=== PATIENT | female | born 1990 | race Caucasian/White ===

== ENCOUNTER 2024-10-24 18:21 | Inpatient (IN) | payer OTHER, SELFPAY ==
[2024-10-24 18:51] VITALS: BP 119/87; PULSE 140; RESP 18; TEMP 36.8; O2SAT 98
--- NOTE | 2024-10-24 18:54 | XRR_ITS ---
PROCEDURE INFORMATION: Exam: XR Chest Exam date and time: 10/24/2024 8:09 PM Age: 34 years old Clinical indication: Patient HX: AMS; Lethargy; Dehydration; Weakness TECHNIQUE: Imaging protocol: Radiologic exam of the chest. Views: 1 view. COMPARISON: No relevant prior studies available. FINDINGS: Lungs: Asymmetric density of the lung andre likely related to centering artifact. No pulmonary consolidation. Pleural spaces: No pleural effusion or pneumothorax. Heart/Mediastinum: Unremarkable. No cardiomegaly. Bones/joints: No acute osseous abnormalities are seen. XR/XR chest 1V portable [id number] IMPRESSION: No acute cardiopulmonary disease.
--- NOTE | 2024-10-24 19:01 | ECG_ITS ---
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 Measurements Intervals [place] Rate: 137 P: 68 [place]: 114 QRS: 94 QRSD: 83 T: -26 QT: 366 QTc: 554 Interpretive Statements SINUS TACHYCARDIA WITH SHORT [place] INTERVAL BORDERLINE RIGHT AXIS DEVIATION [QRS AXIS > 90] POSSIBLE ANTERIOR MYOCARDIAL INFARCTION , OF INDETERMINATE AGE [30 ms Q WAVE IN V3/V4, OR R < 0.2 mV IN V4] ST DEVIATION AND MODERATE T-WAVE ABNORMALITY, CONSIDER LATERAL ISCHEMIA [-0.1+ mV T-WAVE IN I/aVL/V5/V6] ST DEVIATION AND MARKED T-WAVE ABNORMALITY, CONSIDER INFERIOR ISCHEMIA [-0.5+ mV T-WAVE IN II/aVF] No previous ECG available for comparison Electronically Signed On 10-24-2024 22:37:09 SENIOR PRODUCT DEVELOPMENT SCIENTIST by Bennett Choi M.D. [email or web address]
[2024-10-24 20:21] LABS: Alanine Aminotransferase 175 U/L (0-33); Alkaline Phosphatase 122 U/L (35-105); Anion Gap 22.3 (5-19); Aspartate Amino Transferase 51 U/L (0-32); Blood Urea Nitrogen 9 mg/dL (6-20); Calcium 9.9 mg/dL (8.5-10.5); Carbon Dioxide 17 mmol/L (22-29); Chloride 101 mmol/L (98-107); Creatinine Clr Calc Pharmacy 187.2516; Globulin 3.4 g/dL (1.3-4.6); Glomerular Filtration Rate 182.7 mL/min (90-130); Glucose 163 mg/dL (65-115); Osmolality Calculated 286 mOsm/kg (285-295); Potassium 3.3 mmol/L (3.5-5.1); Sodium 137 mmol/L (136-145); Total Bilirubin 2.7 mg/dL (0.15-1.2); Total Protein 7.4 g/dL (6.6-8.7)
[2024-10-24 21:09] VITALS: BP 125/88; PULSE 120; O2SAT 93
--- NOTE | 2024-10-24 21:10 | USR_ITS ---
PROCEDURE INFORMATION: Exam: US Abdomen, Limited; Right Upper Quadrant Exam date and time: 10/24/2024 9:27 PM Age: 34 years old Clinical indication: Abdominal pain; Localized; Right upper quadrant (ruq); Additional info: Vomiting, abd pain, hyperbilirubinemia TECHNIQUE: Imaging protocol: Real time ultrasound of the abdomen with image documentation. Limited exam focused on the right upper quadrant. COMPARISON: No relevant prior studies available. FINDINGS: Liver: Liver is normal in size with normal overall echotexture with no evidence of cirrhosis or large suspicious mass. There is a discrete echogenic region with somewhat geographic margin in the anterior subcapsular region near the falciform ligament, measuring 2.9 x 1.7 x 2.6 cm which appear to be hypo dense on recent CT and most likely representing normal/benign fatty deposit near the falciform ligament. No perihepatic ascites. Gallbladder: No abnormal gallbladder luminal distension. Nonacute genic echogenic material is seen in the gallbladder lumen suggesting tumefactive sludge. No shadowing calculi are otherwise identified. There is mild nonspecific gallbladder wall thickening however no pericholecystic fluid or definite sonographic [facility] define was reported by the on-site technologist. Lack of significant luminal distension makes acute cholecystitis highly unlikely however. Gallbladder wall thickening is nonspecific and could be related to chronic cholecystitis, other hepatobiliary disease or systemic disease. Biliary ducts: No biliary dilatation. Proximal CBD measures 3 mm, within normal limits. Pancreas: Partially visualized pancreas appears unremarkable. Right kidney: Right kidney is normal in size and overall echotexture. No hydronephrosis or calculi. However please refer to CT exam report same day demonstrating abnormal renal parenchymal enhancement. Aorta: No aortic aneurysm. Inferior vena cava: Unremarkable upper IVC. Portal venous: Main portal vein is patent with normal flow direction. US/US gall bladder [id number] IMPRESSION: 1. Gallbladder sludge. Mild nonspecific gallbladder wall thickening as described. No other definite imaging signs of acute cholecystitis. No biliary dilatation. 2. No acute right upper quadrant findings otherwise. 3. Echogenic area in the liver, likely benign fatty deposit near the falciform ligament as described above.
--- NOTE | 2024-10-24 21:10 | CTR_ITS ---
PROCEDURE INFORMATION: Exam: CT Abdomen And Pelvis With Contrast Exam date and time: 10/24/2024 10:17 PM Age: 34 years old Clinical indication: Nausea and vomiting; Abdominal pain; Generalized; Prior surgery; Surgery date: 6+ months; Surgery type: Csection; Patient HX: Diffuse abd pain with n/v. ; Additional info: Vomiting, abdominal pain TECHNIQUE: Imaging protocol: Computed tomography of the abdomen and pelvis with contrast. Radiation optimization: All CT scans at this facility use at least one of these dose optimization techniques: automated exposure control; mA and/or kV adjustment per patient size (includes targeted exams where dose is matched to clinical indication); or iterative reconstruction. Contrast material: OMNI 350; Contrast volume: 100 ml; Contrast route: INTRAVENOUS (IV); COMPARISON: US gall bladder [id number] 10/24/2024 9:27 PM RADIATION DOSE METRICS: Total DLP (mGy-cm): 513.41 FINDINGS: Liver: Normal. No mass. Gallbladder and biliary ducts: Normal. No calcified stones. No ductal dilation. Pancreas: Normal. No ductal dilation. Spleen: Normal. No splenomegaly. Adrenal glands: Normal. No mass. Kidneys and ureters: Kidneys are normal in size with no suspicious mass, obstructing calculi or hydronephrosis. Small patchy area of decreased renal parenchymal enhancement is seen bilaterally. Findings could represent pyelonephritis however other etiology such as small parenchymal infarcts or small indeterminate renal lesions cannot be excluded. Follow-up imaging after treatment should be obtained, perhaps in 6-8 weeks. Stomach and bowel: Moderate stool burden. No acute bowel findings otherwise. Appendix: No evidence of appendicitis. Intraperitoneal space: Unremarkable. No free air. No significant fluid collection. Vasculature: No abdominal aortic aneurysm. Lymph nodes: No enlarged lymph nodes. Urinary bladder: Markedly distended urinary bladder with no wall thickening or luminal calculi. Urinary tension should be excluded clinically. Reproductive: Unremarkable as visualized. Bones/joints: No acute fracture. Soft tissues: No acute findings. CT/CT abdomen pelvis w con* [id number] IMPRESSION: 1. Small patchy areas of abnormal renal parenchymal enhancement bilaterally, nonspecific but may represent pyelonephritis. Clinical correlation is needed. No drainable collection, obstructing calculi or hydronephrosis. See discussion above. 2. Markedly distended urinary bladder. See above. 3. No acute abdominopelvic findings otherwise. COMMENTS: Consistent with the [employer] [place] [employer]'s Incidental Findings Committee white paper (J Am Terell Radiol 2018): Any incidental renal lesion less than 1 cm or classified as too small to characterize, or any incidental cystic renal lesion characterized as simple-appearing, is likely benign. No follow-up imaging is recommended for these lesions per consensus recommendations based on imaging criteria.
[2024-10-24] MEDS: sodium chloride 0.9% 1,000 ML 999 ML IV ×2 (21:28→22:24)
[2024-10-24 21:31] VITALS: BP 112/78; PULSE 110; O2SAT 97
--- NOTE | 2024-10-24 21:40 | ED_ITS ---
HPI - Nausea/Vomiting/Diarrhea 2 General: Chief complaint: Nausea/Vomiting/Diarrhea Stated complaint: hydrated, cant stand,hold head, weakness Time Seen by Provider: 10/24/24 20:01 History of Present Illness: 34-year-old female who had an EGD in [facility] according to family. She has had continued vomiting and abdominal pain since that time. She was seen at an outside facility, last night, and given IV fluids. X-ray of the abdomen was evidently negative. She presents with lethargy, generalized abdominal pain. No fever. No continued vomiting. Related Data Home Medications Medication Instructions Recorded Confirmed No Known Home Medications 10/25/24 10/25/24 Allergies Allergy/AdvReac Type Severity Reaction Status Date / Time Alpha-Gal Allergy Unknown Verified 10/24/24 18:59 (Ptnipjvrz-Anywc-5,3-Gala [facility] ED 2 PFSH: Medical History (Updated 10/25/24 @ 05:27 by Stu Fuller DO) MTHFR mutation Preeclampsia HELLP syndrome Physical Exam 2 Const: COMMON NORMALS: alert GENERAL APPEARANCE: cooperative, lethargic and ill appearing ORIENTATION/CONSCIOUSNESS: Yes lethargic HENMT: COMMON NORMALS: normocephalic, atraumatic and Normal external nose present HEAD & SCALP: normocephalic and atraumatic FACE & SINUS: normal facial exam and face symmetric NOSE: Normal external nose present Eye: COMMON NORMALS: Equal, round and reactive pupils present and EOMs intact bilaterally PUPIL: Yes Equal, round and reactive pupils present Neck/C-Spine: GENERAL: Yes trachea midline Chest: CHEST: Yes Symmetrical chest wall rise Resp: COMMON NORMALS: normal respiratory effort, No retractions, No use of accessory muscles and clear to auscultation bilaterally AUSCULTATION: clear to auscultation bilaterally Cardio: COMMON NORMALS: regular rate and regular rhythm RATE: regular rate RHYTHM: regular rhythm GI: COMMON NORMALS: Soft to palpation PALPATION: Yes Soft to palpation, No Firmness to palpation present (GI) and Yes Tenderness to palpation present (GI) (Generalized) Extremity: COMMON NORMALS: no pedal edema Neuro: SENSORIUM/ORIENTATION: Yes alert and Yes lethargic Psych: COMMON NORMALS: speech normal SPEECH: Yes normal speech Skin: COMMON NORMALS: no rashes or lesions noted GENERAL SKIN EXAM: no rashes or lesions noted Course 2 Vital Signs: Vital signs: Vital Signs Temperature 98.2 F 10/24/24 18:51 Pulse Rate 72 10/25/24 01:37 Respiratory Rate 18 10/25/24 00:29 Blood Pressure 140/95 10/25/24 01:37 Pulse Oximetry 94 10/25/24 00:29 Oxygen Delivery Me thod Room Air 10/25/24 01:55 MDM - Nausea/Vomiting/Diarrhea Medical Decision Making 34-year-old female with profound dehydration. She is tachycardic on arrival in the 140s. Heart rate is improved after 2 L bolus. She is afebrile. She is lethargic. Patient's liver enzymes are elevated. Right upper quadrant ultrasound shows some sludge in the gallbladder with mild gallbladder wall thickening. CT is negative. She will be admitted. Hospitalist is aware. Lab Data 10/24/24 21:25 10/24/24 19:53 Radiology Impressions Chest X-Ray 10/24/24 18:54 IMPRESSION: No acute cardiopulmonary disease. Abdomen/Pelvis CT 10/24/24 21:10 IMPRESSION: 1. Small patchy areas of abnormal renal parenchymal enhancement bilaterally, nonspecific but may represent pyelonephritis. Clinical correlation is needed. No drainable collection, obstructing calculi or hydronephrosis. See discussion above. 2. Markedly distended urinary bladder. See above. 3. No acute abdominopelvic findings otherwise. COMMENTS: Consistent with the [place] [employer]'s Incidental Findings Committee white paper (J Am Terell Radiol 2018): Any incidental renal lesion less than 1 cm or classified as too small to characterize, or any incidental cystic renal lesion characterized as simple-appearing, is likely benign. No follow-up imaging is recommended for these lesions per consensus recommendations based on imaging criteria. Gallbladder Ultrasound 10/24/24 21:10 IMPRESSION: 1. Gallbladder sludge. Mild nonspecific gallbladder wall thickening as described. No other definite imaging signs of acute cholecystitis. No biliary dilatation. 2. No acute right upper quadrant findings otherwise. 3. Echogenic area in the liver, likely benign fatty deposit near the falciform ligament as described above. Head CT 10/24/24 23:31 IMPRESSION: No acute intracranial findings. Laboratory Results WBC 6.92 10^3/uL (3.29-11.43) 10/24/24 21:25 Corrected WBC Cancelled 10/24/24 19:53 RBC 4.28 10^6/uL (3.85-5.65) 10/24/24 21: Hgb 13.30 g/dL (11.27-16.99) 10/24/24 21: Hct 37.5 % (36-47) 10/24/24 21: MCV 87.6 fl (85-98) 10/24/24 21: MCH 31.1 pg (27-33) 10/24/24: MCHC 35.5 g/dL (30-55) 10/24/24: RDW 12.3 % (12.1-15.1) 10/24/24: Plt Count 179 10^3/cmm (157-399) 10/24/24: MPV 10.2 fL (7.4-10.4) 10/24/24 21: Gran % Cancelled 10/24/24 19:53 Neut % (Auto) 76.8 % 10/24/24: Lymph % (Auto) 12.3 % 10/24/24: Karnes % (Auto) 8.5 % 10/24/24: Eos % (Auto) 1.2 % 10/24/24: Baso % (Auto) 0.3 % 10/24/24: Neut # (Auto) 5.32 10^3/uL (1.8-7.7) 10/24/24: Lymph # (Auto) 0.9 10^3/uL (0.8-4.8) 10/24/24: Karnes # (Auto) 0.6 10^3/uL (0.2-0.9) 10/24/24 21: Eos # (Auto) 0.1 10^3/uL (0.0-0.8) 10/24/24: Baso # (Auto) 0.0 10^3/uL (0.0-0.1) 10/24/24: Absolute Gran (auto) Cancelled 10/24/24 19:53 Nucleated RBC % (auto) 0 % 10/24/24: Nucleated RBCs # 0.0 /100WBC 10/24/24 21: Sodium 137 mmol/L (136-145) 10/24/24 19:53 Potassium 3.3 mmol/L (3.5-5.1) L 10/24/24 19:53 Chloride 101 mmol/L (98-107) 10/24/24 19:53 Carbon Dioxide 17 mmol/L (22-29) L 10/24/24 19:53 Anion Gap 22.3 (5-19) H 10/24/24 19:53 BUN 9 mg/dL (6-20) 10/24/24 19:53 Creatinine 0.4 mg/dL (0.5-0.9) L 10/24/24 19:53 GFR Calculation 182.7 mL/min (90-130) H 10/24/24 19:53 Glucose 163 mg/dL (65-115) H 10/24/24 19:53 Calculated Osmolality 286 mOsm/kg (285-295) 10/24/24 19:53 Lactic Acid 2.0 mmol/L (0.5-2.2) 10/24/24 19:53 Calcium 9.9 mg/dL (8.5-10.5) 10/24/24 19:53 Total Bilirubin 2.7 mg/dL (0.15-1.2) H 10/24/24 19:53 AST 51 U/L (0-32) H 10/24/24 19:53 ALT 175 U/L (0-33) H 10/24/24 19:53 Alkaline Phosphatase 122 U/L (35-105) H 10/24/24 19:53 Total Protein 7.4 g/dL (6.6-8.7) 10/24/24 19:53 Albumin 4.0 g/dL (3.5-5.2) 10/24/24 19:53 Globulin 3.4 g/dL (1.3-4.6) 10/24/24 19:53 Vitamin B12 647 pg/mL (232-1245) 10/24/24 19:53 HCG, Qual Negative (Negative) 10/24/24: Urine Color Leeper (Yellow) A 10/24/24 20: Urine Appearance Clear (CLEAR) 10/24/24 20:27 Urine pH 6.5 (5-7) 10/24/24 20:27 Ur Specific [place] 1.039 (1.005-1.030) H 10/24/24 20:27 Urine Protein Trace (Negative) A 10/24/24 20: Urine Glucose (UA) Negative (Normal) 10/24/24 20: Urine Ketones 2+ (Negative) H 10/24/24 20: Urine Blood Negative (Negative) 10/24/24 20: Urine Nitrate Negative (Negative) 10/24/24 20: Urine Bilirubin 2+ (Negative) H 10/24/24 20: Urine Urobilinogen 2.0 mg/dL (Negative) H 10/24/24 20:27 Ur Leukocyte Esterase Trace (Negative) A 10/24/24 20: Urine RBC 0-2 /hpf (0-2) 10/24/24 20: Urine WBC 0-5 /hpf (0-5) 10/24/24 20: Ur Squamous Epith Cells 0-5 /hpf (0-5) 10/24/24 20: Amorphous Sediment Not Reportable 10/24/24 20: Urine Bacteria None seen /hpf (NONE) 10/24/24 20: Hyaline Casts 4.95 /lpf 10/24/24 20: Urine Mucus 4+ /hpf 10/24/24 20:27 Urine Opiates Screen Negative ng/mL (Negative) 10/24/24 20: Ur Barbiturates Screen Negative ng/mL (Negative) 10/24/24 20: Ur Phencyclidine Scrn Negative ng/mL (Negative) 10/24/24 20: Ur Amphetamines Screen Negative ng/mL (Negative) 10/24/24 20: U Benzodiazepines Scrn Negative ng/mL (Negative) 10/24/24 20: Urine Cocaine Screen Negative ng/mL (Negative) 10/24/24 20: U Marijuana (THC) Screen Negative ng/mL (Negative) 10/24/24 20: Coronavirus (PCR) Negative (Negative) 10/24/24 21:24 Hepatitis A IgM Ab Non-reactive (Nonreactive) 10/24/24 19:53 Hep Bs Antigen Non-reactive (Nonreactive) 10/24/24 19:53 Hep B Core IgM Ab Non-reactive (Nonreactive) 10/24/24 19:53 Hepatitis C Antibody Non-reactive (Nonreactive) 10/24/24 19:53 Influenza A (PCR) Negative (Negative) 10/24/24 21:24 Influenza Type B (PCR) Negative (Negative) 10/24/24 21:24 RSV (PCR) Negative (Negative) 10/24/24 21:24 All radiology interpretation(s) finalized by discharge Discharge Plan Discharge Patient Disposition: Admitted As Inpatient Admit Provider: Joshua Craig Clinical Impression: Cyclical vomiting, Refeeding syndrome, Ketosis, Abnormal liver enzymes Condition: Serious Coding Level of Care Code 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
[2024-10-24 21:43] LABS: Basophils % 0.3 %; Eosinophils # 0.1 10^3/uL (0.0-0.8); Eosinophils % 1.2 %; Hematocrit 37.5 % (36-47); Lymphocytes # 0.9 10^3/uL (0.8-4.8); Lymphocytes % 12.3 %; Mean Corpuscular HGB Conc 35.5 g/dL (30-55); Mean Corpuscular Hemoglobin 31.1 pg (27-33); Mean Corpuscular Volume 87.6 fl (85-98); Mean Platelet Volume 10.2 fL (7.4-10.4); Monocytes # 0.6 10^3/uL (0.2-0.9); Monocytes % 8.5 %; Neutrophils # 5.32 10^3/uL (1.8-7.7); Neutrophils % 76.8 %; Nucleated Red Blood Cells % 0 %; Platelet Count 179 10^3/cmm (157-399); Red Blood Count 4.28 10^6/uL (3.85-5.65); Red Cell Distribution Width 12.3 % (12.1-15.1); White Blood Count 6.92 10^3/uL (3.29-11.43)
[2024-10-24 22:12] LABS: Covid PCR NEGATIVE (Negative); Influenza A NEGATIVE (Negative); Influenza B NEGATIVE (Negative); Respiratory Syncytial Virus Ce NEGATIVE (Negative)
[2024-10-24] MEDS: iohexol 350 mg/mL 500 mL Btl (per mL) IV (22:22)
[2024-10-24 22:37] LABS: Hepatitis A Antibody IgM Non-Reactive (Nonreactive); Hepatitis B Core IgM Non-Reactive (Nonreactive); Hepatitis B Surface Antigen Non-Reactive (Nonreactive); Hepatitis C Virus Antibody Non-Reactive (Nonreactive)
[2024-10-24 22:41] VITALS: BP 127/99; PULSE 107; O2SAT 98
[2024-10-24 22:52] LABS: Bilirubin Urine 2+ (Negative); Blood Urine Negative (Negative); Glucose Urine UA Negative (Normal); Ketones Urine 2+ (Negative); Leukocyte Esterase Urine Trace (Negative); Nitrate Urine Negative (Negative); Protein Urine Trace (Negative); Urine Appearance Clear (CLEAR); pH Urine 6.5 (5-7)
[2024-10-24 22:55] LABS: HCG Qualitative Urine. Negative (Negative)
[2024-10-24 22:57] LABS: Bacteria Urine None Seen /hpf; Hyaline Casts Urine 4.95 /lpf; RBC Urine 0-2 /hpf (0-2); Squamous Epithelial Cell Urine 0-5 /hpf (0-5); Universal Test for UA Present (0); WBC Urine 0-5 /hpf (0-5)
[2024-10-24 23:07] LABS: Add Urine Culture? No; Mucus Urine 4+ /hpf; Specific Gravity, Urine 1.039 (1.005-1.030); Urine Color Orange (Yellow)
[2024-10-24 23:10] LABS: Amphetamines Screen Urine Negative (Negative); Barbiturates Screen Urine Negative (Negative); Benzodiazepines Screen Urine Negative (Negative); Cocaine Screen Urine Negative (Negative); Opiate Screen Urine Negative (Negative); PCP Screen Urine Negative (Negative); THC Screen Urine Negative (Negative)
[2024-10-24 23:19] VITALS: BP 127/99; PULSE 101; O2SAT 99
--- NOTE | 2024-10-24 23:25 | P.HP_ITS ---
Providers/Chief Complaint 2 Chief Complaint: hydrated, cant stand,hold head, weakness History of Present Illness Marisela Matute is a 34 year old female who recently got diagnosis of alpha gal in July, started experiencing recurrent nausea vomiting September this year, October 14 she was at [facility] where EGD was done which showed acute esophagitis, biopsy did not show any fungal infection however she does have oral thrush, stomach did not show any significant ulcers or sign of malignancy, she did have high mast cells on esophageal biopsy there was concern for mastocytosis workup was initiated, patient was discharged home, she went back to [facility] again today because of recurrent nausea vomiting inability to keep anything down severe dehydration where she was kept in the ER for IV fluid hydration and then discharged home, presenting today with worsening of her symptoms with nausea vomiting dehydration hallucination lethargy fatigue. Patient is stating that she does not have any siblings with liver disorder, no history of cancer. She does have MTHfr mutation, recurrent abortions, has 1 child who is 6 years old, developed HELP and preeclampsia, not on any anticoagulating agent, she is not diabetic hemoglobin A1c was 5.4 as per [facility] records. In the ER she is tachycardic, had urinary retention Sandra catheter was placed, there was concern for gallbladder sludge with cholecystitis however clinically she does not have any typical signs of features General Surgery has been notified. I will request dietitian to see her in the morning to start PPN because she has extreme signs of dehydration my concern is related to refeeding syndrome she does have oral thrush with cheliosis I requested autoimmune workup She does have high bilirubin with abnormal liver enzymes and high alkaline phosphatase Review of Systems 2 Const: Denies: fever(s) Eyes: Denies: change in vision ENMT: Denies: throat pain Card: Denies: chest pain Resp: Denies: dyspnea GI: Reports: nausea and vomiting : Denies: flank pain Musc: Denies: neck pain Neuro: Reports: behavioral changes Medications/Allergies Allergies Allergy/AdvReac Type Severity Reaction Status Date / Time Alpha-Gal Allergy Unknown Verified 10/24/24 18:59 (Zczvlsbsz-Tapps-3,3-Gala PFSH Acute 2 PFSH: Medical History (Updated 10/25/24 @ 00:18 by Joshua Craig MD) MTHFR mutation Preeclampsia HELLP syndrome Vitals/I&O/Wt Last Vital Signs Temp 98.2 F 10/24/24 18:51 Pulse 101 H 10/24/24 23:19 Resp 18 10/24/24 18:51 BP 127/99 10/24/24 23:19 Pulse Ox 99 10/24/24 23:19 O2 Del Method Room Air 10/24/24 23:19 10/24/24 10/24/24 10/25/24 14:59 22:59 06:59 Intake Total 932.4 / 932.4 Balance 932.4 / 932.4 Weight last 48 hrs Weight 67.585 kg Physical Exam 2 Narrative: Patient is extremely dehydrated Oral thrush Stomatitis cheliosis Abdomen soft No Phillip sign No severe tenderness Afebrile No signs of meningitis Nonfocal neuroexam Awake and alert Dehydrated S1, S2 tachycardia at the bedside I do not appreciate any skin rash Verbally redirectable Data 10/24/24 21:25 10/24/24 19:53 Micro: Microbiology 10/24/24 19:57 Blood Culture - Preliminary Blood SPECIMEN COLLECTED 10/24/24 19:53 Blood Culture - Preliminary Blood SPECIMEN COLLECTED A&P Assessment and plan (1) Refeeding syndrome: (2) Dehydration: (3) Cyclical vomiting: (4) Abnormal liver enzymes: (5) Hypokalemia: (6) Ketosis: (7) Esophagitis: Plan Cyclical vomiting Does not smoke or drink alcohol, no use of marijuana Alpha gal deficiency She is currently being worked up at [facility] for mastocytosis EGD done October 14 which showed acute esophagitis without fungal infection in esophagus mucosa however she does have oral thrush for which I will give her nystatin, [facility] For concern related to gallbladder sludge General Surgery has been consulted I will keep her on Zosyn until then Start IV fluids Request dietitian to start PPN in the morning patient has not eaten in multiple weeks high risk for refeeding syndrome keep her on front desk monitor electrolytes including potassium magnesium and phosphorus Sandra catheter placed for urinary retention Requested autoimmune workup for abnormal liver enzymes Patient is not diabetic hemoglobin A1c 5.4 I will keep her on GI soft diet DVT prophylaxis Lovenox Attestations 2 Medical Necessity Statement*: Anticipating discharge within 40 hours Diagnoses Refeeding syndrome E87.8 Dehydration E86.0 Cyclical vomiting R11.15 Abnormal liver enzymes R74.8 Hypokalemia E87.6 Ketosis E88.89 Esophagitis K20.90
--- NOTE | 2024-10-24 23:31 | CTR_ITS ---
PROCEDURE INFORMATION: Exam: CT Head Without Contrast Exam date and time: 10/25/2024 12:10 AM Age: 34 years old Clinical indication: Altered mental status/memory loss; Patient HX: Severe lethargy. TECHNIQUE: Imaging protocol: Computed tomography of the head without contrast. Radiation optimization: All CT scans at this facility use at least one of these dose optimization techniques: automated exposure control; mA and/or kV adjustment per patient size (includes targeted exams where dose is matched to clinical indication); or iterative reconstruction. COMPARISON: No relevant prior studies available. RADIATION DOSE METRICS: Total DLP (mGy-cm): 2420.28 FINDINGS: Brain: Bandlike low-density changes in the right frontal and right medial temporal region are most likely artifacts. Normal brain otherwise. No hemorrhage. Unremarkable white matter. No mass effect. Cerebral ventricles: No ventriculomegaly. Paranasal sinuses: Opacified left anterior ethmoid sinus. Other sinuses are clear. Mastoid air cells: Visualized mastoid air cells are well aerated. Bones: Unremarkable. No acute fracture. Soft tissues: Unremarkable. CT/CT head wo con* [id number] IMPRESSION: No acute intracranial findings.
[2024-10-25] VITALS (8 sets, daily range): BP systolic 92–140; BP diastolic 61–95; PULSE 66–113; RESP 15–18; TEMP 36.4–36.9; O2SAT 94–100
[2024-10-25] MEDS: piperacillin-tazobactam 3.375 GM in sodium chloride 0.9% (plus) 50 ML IV ×2 (00:08→08:28)
--- NOTE | 2024-10-25 01:24 | PC.NURSE ---
Orders Unable to obtain D5LR with 20KcL at this time d/t no pharmacist on site. Dr. Craig notified by this nurse. Orders received to run NS in place until pharmacy is available. Order placed for NS @ 100mL/hr. Physician also gave order for 40mEq Krider x1 dose IV now. This nurse consulted with telepharmacy as patient has alpha-gal allergy. Pharmacy cautions use of Lidocaine with this patient and advises Krider without it to be safe. Order placed for 40mEq Krider x1 bag without Lidocaine.
[2024-10-25] MEDS: potassium chloride premix 100 ML 25 MEQ IV (01:37)
[2024-10-25] MEDS: enoxaparin 40 mg/0.4 mL Syringe SUBCUT ×2 (01:37→23:43)
[2024-10-25] MEDS: scopolamine 1.5 Patch 1 PATCH TRANSDERMA (01:37)
[2024-10-25] MEDS: sodium chloride 0.9% 1,000 ML 100 ML IV ×3 (01:40→20:28)
[2024-10-25 02:37] LABS: Vitamin B12 647 pg/mL (232-1245)
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
[2024-10-25] MEDS: pantoprazole 40 mg SDV IVP ×2 (08:28→17:50)
[2024-10-25 12:25] LABS: Basophils % 0.3 %; Eosinophils # 0.2 10^3/uL (0.0-0.8); Eosinophils % 2.1 %; Hematocrit 31.4 % (36-47); Lymphocytes # 0.7 10^3/uL (0.8-4.8); Lymphocytes % 10.3 %; Mean Corpuscular Hemoglobin 30.6 pg (27-33); Mean Corpuscular Volume 87.5 fl (85-98); Mean Platelet Volume 10.6 fL (7.4-10.4); Monocytes # 0.4 10^3/uL (0.2-0.9); Monocytes % 5.9 %; Neutrophils # 5.73 10^3/uL (1.8-7.7); Neutrophils % 80.8 %; Nucleated Red Blood Cells % 0 %; Platelet Count 151 10^3/cmm (157-399); Red Blood Count 3.59 10^6/uL (3.85-5.65); Red Cell Distribution Width 12.4 % (12.1-15.1); White Blood Count 7.09 10^3/uL (3.29-11.43)
[2024-10-25 12:47] LABS: Alanine Aminotransferase 106 U/L (0-33); Albumin Level 3.1 g/dL (3.5-5.2); Alkaline Phosphatase 100 U/L (35-105); Anion Gap 16.3 (5-19); Aspartate Amino Transferase 38 U/L (0-32); Blood Urea Nitrogen 6 mg/dL (6-20); C Reactive Protein 129.8 mg/L (0.0-4.9); Calcium 8.3 mg/dL (8.5-10.5); Carbon Dioxide 17 mmol/L (22-29); Chloride 107 mmol/L (98-107); Creatine Phosphokinase 113 U/L (26-192); Globulin 2.2 g/dL (1.3-4.6); Glomerular Filtration Rate 182.7 mL/min (90-130); Glucose 81 mg/dL (65-115); Magnesium 1.8 mg/dL (1.7-2.3); Osmolality Calculated 281 mOsm/kg (285-295); Phosphorus 3.1 mg/dL (2.5-4.5); Potassium 3.3 mmol/L (3.5-5.1); Sodium 137 mmol/L (136-145); Total Bilirubin 2.2 mg/dL (0.15-1.2); Total Protein 5.3 g/dL (6.6-8.7)
[2024-10-25 12:57] LABS: Cortisol Random 11.33 ug/dL (2.47-19.5)
[2024-10-25 14:04] LABS: HIV 1 & 2 Antibody Non-Reactive (Non-Reactiv); HIV 1 & 2 Antigen Non-Reactive (Non-Reactiv)
--- NOTE | 2024-10-25 15:07 | P.PN_ITS ---
Subjective 2 Subjective: Overnight labs and H&P reviewed. Patient states her nausea is better today. She is noted to have severe thrush, ulcerative rash on her lips. States that her symptoms have been going on and worsening since middle of September. Medications: Reviewed: Yes Vitals/I&O/Wt Last Vital Signs Temp 98.4 F 10/25/24 11:38 Pulse 113 H 10/25/24 11:38 Resp 16 10/25/24 11:38 BP 96/64 10/25/24 11:38 Pulse Ox 99 10/25/24 11:38 O2 Del Method Room Air 10/25/24 11:38 10/25/24 10/25/24 10/25/24 06:59 14:59 22:59 Intake Total 1150.000 / 2082.400 965 / 965 Output Total 1750 / 1750 1000 / 1000 Balance -600.000 / 332.400 -35 / -35 Weight last 48 hrs Weight 71.668 kg Weight 71.668 kg Weight 67.585 kg Physical Exam 2 Narrative: General: No acute distress, AO x3 HEENT: PERRLA, severe thrush affecting her tongue. Redness over soft palate. Chest: Normal vesicular breath sounds, no added sounds, equal good air entry bilaterally CVS: S1-S2 regular, no murmurs, no tachycardia, no gallops, no rubs Abdomen: Soft, nontender, no organomegaly, bowel sounds present Neuro: No focal motor deficits on exam Urinary Catheter Management: Sandra: Cath Placed During This Visit: yes, but has since been removed by the nurse Reason for Continuing Indwelling Catheter: Decision to DC Catheter Urinary Catheter Date of Insertion: 10/24/24 Urinary Catheter Time of Insertion: 23:48 Date Urinary Catheter Removed: 10/25/24 Time Urinary Catheter Discontinued: 13:03 Data 10/25/24 12:07 10/25/24 12:07 Micro: Microbiology 10/24/24 19:57 Blood Culture - Preliminary Blood SPECIMEN COLLECTED 10/24/24 19:53 Blood Culture - Preliminary Blood SPECIMEN COLLECTED A&P Assessment and plan (1) Dehydration: (2) Cyclical vomiting: (3) Abnormal liver enzymes: (4) Hypokalemia: (5) Ketosis: (6) Esophagitis: (7) Thrush, oral: (8) Stomatitis: Plan Cyclical vomiting Does not smoke or drink alcohol, no use of marijuana Alpha gal deficiency She is currently being worked up at [facility] for mastocytosis EGD done October 14 which showed acute esophagitis without fungal infection in esophagus mucosa however she does have oral thrush for which I will give her nystatin, has the [facility] online portal report For concern related to gallbladder sludge General Surgery has been consulted I will keep her on Zosyn until then Start IV fluids Request dietitian to start PPN in the morning patient has not eaten in multiple weeks high risk for refeeding syndrome keep her on threat monitoring analyst electrolytes including potassium magnesium and phosphorus Sandra catheter placed for urinary retention Requested autoimmune workup for abnormal liver enzymes Patient is not diabetic hemoglobin A1c 5.4 I will keep her on GI soft diet DVT prophylaxis Lovenox Plan for today: 10/25/2024. Patient noted to have severe thrush. 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 Reviewed her biopsy results from which she has been healed. Esophagitis and gastritis was noted with mast cell deposition. Per review of the report it appears that they have planned to start patient on antihistamines, but she has not yet received any prescription for the same. She has only been recommended to take Protonix thus far. Fungal stains were negative. Unable to see any results of viral cytopathic changes. Unable to find results of H. pylori testing. Check HIV 1 2 antigen antibody screen. Concern for underlying immunocompromising condition given severity of her symptoms. Possibly autoimmune disorder. Noted to have deranged LFTs, patient states this has chronically been noted over the past 2 to 3 months, possibly may have autoimmune hepatitis. DAYDAY panel was ordered last evening, results not expected to be back until about 24 hours. Gallbladder sludge on US. non specific wall thickening. Less likely to be cholecystitis as no right upper quadrant tenderness .Chronicity of symptoms. Discontinue piperacillin/tazobactam. For now we will continue IV hydration. She appears to be much better hydrated today. BMI is 27.K is 3.3 Continue nystatin swish and swallow. May physically have an invasive pharyngitis. She reports severe weakness to the point of not being able to move her lower extremities. Not being able to walk to the bathroom. PT/OT assessment ordered. reports beingvery stressed recently due to family dynamics and her childrens' illness. Attestations 2 Medical Necessity Statement*: continue iv hydration. Add fluconazole for severe thrush, HSV PCR to evaluate for viral stomatitis/esophagitis Coding Level of Care Code Acute Code for Chg Fwd Diagnoses Dehydration E86.0 Cyclical vomiting R11.15 Abnormal liver enzymes R74.8 Hypokalemia E87.6 Ketosis E88.89 Esophagitis K20.90 Thrush, oral B37.0 Stomatitis K12.1
[2024-10-25] MEDS: lidocaine 1% 5 ML in potassium chloride premix 100 ML 52.5 ML IV (15:51)
--- NOTE | 2024-10-25 16:08 | PC.OT ---
OT EVALUATION ATTEMPTED. PATIENT SLEEPING SOUNDLY. WILL ATTEMPT AGAIN TOMORROW.
--- NOTE | 2024-10-25 17:09 | P.CONIM_ITS ---
Providers/Reason For Consult 2 Consulting Physician/Specialty*: Dr. Demar Lopez, DO/General Surgery Reason for Consult*: Abdominal pain, cholecystitis Attending Physician: Anna Niño MD History of Present Illness History of Present Illness Marisela Matute is a 34 year old female scented to the hospital with an almost 2- month history of nausea and emesis. She reports that she has been unable to keep anything down, per patient's significant other and the chart. When I examined the patient, she was very somnolent and difficult to wake. She was confused and not oriented to place. HPI and review of systems are limited secondary to this. She reportedly has not had much abdominal pain but has not been able to eat due to frequent nausea and vomiting. She underwent EGD at another facility last month where they found acute esophagitis, with a high number of mast cells seen on biopsy. Upon further questioning, patient has had a headache since the EGD along with blurred and double vision. Imaging of the abdomen showed a thickened gallbladder wall with no other signs of acute cholecystitis Review of Systems 2 General: Reports: ROS unobtainable due to mental status Medications/Allergies Home Medications Medication Instructions Recorded Confirmed Last Taken Type No Known Home Medications 10/25/24 10/25/24 Unknown History Allergies Allergy/AdvReac Type Severity Reaction Status Date / Time Alpha-Gal Allergy Unknown Verified 10/24/24 18:59 (Rzmuvqzac-Fsvbc-0,3-Gala Current Medications Generic Name Dose Route Start Last Admin Trade Name Freq PRN Reason Stop Dose Admin Enoxaparin Sodium 40 mg 10/25/24 00:36 10/25/24 23:43 Enoxaparin 40 Mg/0.4 Ml Syringe SUBCUT 40 mg Q24H MADAI Administration Sodium Chloride 1,000 mls @ 100 mls/hr 10/25/24 01:15 10/26/24 06:29 Sodium Chloride 0.9% IV 100 mls/hr .Q10H MADAI Administration Fluconazole 100 mg/ N/A 50 mls @ 50 mls/hr 10/25/24 16:30 10/25/24 19:09 IV Infused Q24H MADAI Infusion Nystatin 500,000 unit 10/25/24 09:00 10/25/24 20:28 Nystatin 100,000 Unit/Ml Udc 5 Ml PO Not Given QID MADAI Pantoprazole Sodium 40 mg 10/25/24 09:00 10/25/24 17:50 Pantoprazole 40 Mg Sdv IVP 40 mg BID MADAI Administration Thiamine HCl 100 mg 10/25/24 09:00 10/25/24 08:29 Thiamine 100 Mg/Ml Sdv IVP 100 mg DAILY MADAI Administration PFSH Acute 2 PFSH: Medical History MTHFR mutation Preeclampsia HELLP syndrome Vitals/I&O/Wt Last Vital Signs Temp 97.9 F 10/26/24 03:55 Pulse 69 10/26/24 03:55 Resp 14 10/26/24 03:55 BP 103/68 10/26/24 03:55 Pulse Ox 99 10/26/24 03:55 O2 Del Method Room Air 10/26/24 03:55 10/25/24 10/26/24 10/26/24 22:59 06:59 14:59 Intake Total 1140 / 2105 1300 / 3405 Output Total 1000 / 2000 Balance 140 / 105 1300 / 1405 Weight last 48 hrs Weight 162 lb 3.2 oz Weight 158 lb Weight 158 lb Weight 149 lb Physical Exam 2 Narrative: General : Patient is well developed , somnolent, oriented only to person and time but not to place Head : Normal cephalic, a-traumatic. Ears : Pinnae and external canal are normal. Hearing is normal. Eyes : PERRLA, Sclera and injection are normal. No conjunctival discharge. Nose : Mucous membranes are without erythema. Throat : buccal mucosa is normal, gums are without significant recession or hypertrophy. Lungs : Equal chest rise bilaterally, no use of accessory muscles, trachea is midline. Cor : Rate and rhythm are normal. Abdomen : Soft, ND, NT, no g/r/m Extremities : No edema, no cyanosis or clubbing, dorsalis pedis pulses are present bilaterally, non-tender to palpation of calves. Upper extremities are normal bilaterally. Back : non-tender to palpation, no CVA tenderness. Neuro : CN II - XII intact, Upper and lower extremities have equal and full strength Urinary Catheter Management: Sandra: Cath Placed During This Visit: yes, but has since been removed by the nurse Reason for Continuing Indwelling Catheter: Decision to DC Catheter Urinary Catheter Date of Insertion: 10/24/24 Urinary Catheter Time of Insertion: 23:48 Date Urinary Catheter Removed: 10/25/24 Time Urinary Catheter Discontinued: 13:03 Data 10/28/24 06:50 10/28/24 06:50 Micro: Microbiology 10/24/24 19:57 Blood Culture - Preliminary Blood NEGATIVE TO DATE 10/24/24 19:53 Blood Culture - Preliminary Blood NEGATIVE TO DATE A&P Assessment and plan (1) Cyclical vomiting: (2) Headache: (3) Chronic cholecystitis: (4) Double vision: (5) Abnormal liver enzymes: Plan She does not have acute cholecystitis and the risks of undergoing major surgery right now are not outweighed by the benefits. I spoke with Dr. Nioñ, the admitting hospitalist, about workup for possible viral versus immune versus idiopathic hepatitis and possible meningitis given the patient's somnolence, headache and double vision. She is also very malnourished. Diet as tolerated No acute surgical intervention Will follow Coding Level of Care Code 84166 Diagnoses Cyclical vomiting R11.15 Headache R51.9 Chronic cholecystitis K81.1 Double vision H53.2 Abnormal liver enzymes R74.8
[2024-10-25] MEDS: fluconazole premix 100 MG in empty flexible container 1 EACH 50 MG IV (17:50)
[2024-10-26 03:55] VITALS: BP 103/68; PULSE 69; RESP 14; TEMP 36.6; O2SAT 99
[2024-10-26 05:07] LABS: Basophils % 0.9 %; Eosinophils # 0.2 10^3/uL (0.0-0.8); Eosinophils % 5.3 %; Hematocrit 34.2 % (36-47); Lymphocytes # 1.1 10^3/uL (0.8-4.8); Lymphocytes % 35.5 %; Mean Corpuscular HGB Conc 31.6 g/dL (30-55); Mean Corpuscular Hemoglobin 30.6 pg (27-33); Mean Corpuscular Volume 96.9 fl (85-98); Mean Platelet Volume 10.5 fL (7.4-10.4); Monocytes # 0.2 10^3/uL (0.2-0.9); Monocytes % 7.2 %; Neutrophils % 50.5 %; Nucleated Red Blood Cells % 0 %; Platelet Count 139 10^3/cmm (157-399); Red Blood Count 3.53 10^6/uL (3.85-5.65); Red Cell Distribution Width 12.7 % (12.1-15.1); White Blood Count 3.18 10^3/uL (3.29-11.43)
[2024-10-26 05:24] LABS: Alanine Aminotransferase 84 U/L (0-33); Albumin Level 2.9 g/dL (3.5-5.2); Alkaline Phosphatase 87 U/L (35-105); Anion Gap 15.6 (5-19); Aspartate Amino Transferase 26 U/L (0-32); Blood Urea Nitrogen 5 mg/dL (6-20); Calcium 9.4 mg/dL (8.5-10.5); Carbon Dioxide 18 mmol/L (22-29); Chloride 115 mmol/L (98-107); Creatinine Clr Calc Pharmacy 194.7449; Globulin 2.6 g/dL (1.3-4.6); Glomerular Filtration Rate 182.7 mL/min (90-130); Glucose 68 mg/dL (65-115); Osmolality Calculated 296 mOsm/kg (285-295); Potassium 3.6 mmol/L (3.5-5.1); Sodium 145 mmol/L (136-145); Total Bilirubin 1.2 mg/dL (0.15-1.2); Total Protein 5.5 g/dL (6.6-8.7)
[2024-10-26] MEDS: sodium chloride 0.9% 1,000 ML 100 ML IV (06:29)
[2024-10-26 07:11] VITALS: BP 110/73; PULSE 79; RESP 18; TEMP 36.5; O2SAT 99
[2024-10-26 07:38] LABS: Anti-Double Strand DNA AB <1 IU/mL
[2024-10-26 09:02] VITALS: PULSE 79; RESP 18; O2SAT 98
[2024-10-26] MEDS: pantoprazole 40 mg SDV IVP ×2 (09:21→17:07)
[2024-10-26 11:23] VITALS: BP 111/77; PULSE 106; RESP 16; TEMP 36.6; O2SAT 98
--- NOTE | 2024-10-26 12:37 | P.PN_ITS ---
Subjective 2 Subjective: Patient is much more alert today and answering questions normally. She denies ever having any significant abdominal pain. She is not eating very much because she does not have any appetite or energy Vitals/I&O/Wt Last Vital Signs Temp 98.1 F 10/28/24 11:13 Pulse 69 10/28/24 11:13 Resp 16 10/28/24 11:13 BP 110/63 10/28/24 11:13 Pulse Ox 97 10/28/24 11:13 O2 Del Method Room Air 10/28/24 11:13 10/27/24 10/28/24 10/28/24 22:59 06:59 14:59 Intake Total 855 / 1080.0 105 / 1185.0 240 / 240 Output Total 1600 / 1600 Balance -745 / -520.0 105 / -415.0 240 / 240 Weight last 48 hrs Weight 162 lb 6.4 oz Weight 164 lb 4.8 oz Physical Exam 2 Narrative: General: No acute distress, awake alert and oriented x 3 Abdomen: Soft, nontender, nondistended Urinary Catheter Management: Sandra: Cath Placed During This Visit: yes, but has since been removed by the nurse Reason for Continuing Indwelling Catheter: Decision to DC Catheter Urinary Catheter Date of Insertion: 10/24/24 Urinary Catheter Time of Insertion: 23:48 Date Urinary Catheter Removed: 10/25/24 Time Urinary Catheter Discontinued: 13:03 Data 10/28/24 06:50 10/28/24 06:50 A&P Assessment and plan (1) Cyclical vomiting: (2) Headache: (3) Chronic cholecystitis: (4) Double vision: (5) Abnormal liver enzymes: Plan She does not have acute cholecystitis and the risks of undergoing major surgery right now are not outweighed by the benefits. I spoke with the hospitalist, Dr. Fortune. Gallbladder is not causing her current symptoms. She likely has either viral, autoimmune or idiopathic hepatitis causing her elevated LFTs. Further workup is being done per medicine related to her headache and double vision Diet as tolerated No acute surgical intervention Will follow Attestations 2 Medical Necessity Statement*: Per primary Coding Level of Care Code 40177 Diagnoses Cyclical vomiting R11.15 Headache R51.9 Chronic cholecystitis K81.1 Double vision H53.2 Abnormal liver enzymes R74.8
[2024-10-26 12:50] LABS: COMPLEMENT COMPONENT C3C 135 mg/dL (83-193); COMPLEMENT COMPONENT C4C 31 mg/dL (15-57)
--- NOTE | 2024-10-26 13:11 | MR_ITS ---
WS: [id number] MRI HEAD WITH CONTRAST TECHNIQUE: Sagittal T1, T2 axial, T2 axial FLAIR, axial susceptibility weighted imaging, axial diffus ion weighted images, and coronal T2 images were obtained. Pre and post-T1 axial and post T1 coronal i mages. ADC and FSPGR images. CLINICAL INFORMATION: double vision COMPARISON: None. FINDINGS: Images significantly degraded by patient motion. Fast imaging was performed Increased T2 hyperintensity with partial restricted diffusion involving the internal capsule and medi al thalami bilaterally. Increased signal in the mamillary bodies with a tiny amount of increased sign al in the periaqueductal leal. Brainstem signal appears normal considering significant motion artifac t . No abnormal gadolinium enhancement. Moderate cerebellar atrophy somewhat advanced for patient this age nonspecific but can be seen with a lcoholic encephalopathy and chronic phenytoin use or seizures Normal vascular flow voids at the skull base. No extra-axial fluid collections. Paranasal sinuses are well aerated. Mucosal thickening LEFT frontoethmoidal recess. Mastoid air cells are well aerated. MR/MR head wo/w con [id number] IMPRESSION: Images significantly degraded and limited by patient motion 1. Above-described findings suspicious for Wernicke's encephalopathy in the ap propriate clinical setting. Recommend correlation with clinical history. 2. Moderate cerebellar atrophy advanced for patient this age nonspecific but c an be seen with alcoholic encephalopathy and chronic phenytoin use or seizures Message LEFT for Cinthiadavid Fortune MD at 10/26/2024 3:[address] Kathia MUNGUIA at 10/26/2024 4:07 PM.
--- NOTE | 2024-10-26 13:57 | P.PN_ITS ---
Subjective 2 Subjective: Patient complains of double vision for the last 12 days ever since she had her EGD. She states she has to keep 1 eye closed constantly. However if she opens both eyes she sees double and this is a persistent symptom she has been having. Denies any nausea vomiting. Tilting the head or position change does not help however she states she changes her position frequently to help with the double vision however has not really gotten better. Vitals/I&O/Wt Last Vital Signs Temp 97.8 F 10/26/24 11:23 Pulse 106 H 10/26/24 11:23 Resp 16 10/26/24 11:23 BP 111/77 10/26/24 11:23 Pulse Ox 98 10/26/24 11:23 O2 Del Method Room Air 10/26/24 09:02 10/25/24 10/26/24 10/26/24 22:59 06:59 14:59 Intake Total 1140 / 2105 1300 / 3405 480 / 480 Output Total 1000 / 2000 Balance 140 / 105 1300 / 1405 480 / 480 Weight last 48 hrs Weight 73.573 kg Weight 71.668 kg Weight 71.668 kg Weight 67.585 kg Physical Exam 2 Narrative: General: No acute distress, AO x3 HEENT: PERRLA, severe thrush affecting her tongue. Redness over soft palate. Chest: Normal vesicular breath sounds, no added sounds, equal good air entry bilaterally CVS: S1-S2 regular, no murmurs, no tachycardia, no gallops, no rubs Abdomen: Soft, nontender, no organomegaly, bowel sounds present Neuro: On cranial nerve testing patient unable to look towards upper outer corner of right eye. She also complains of double vision. Left side weakness greater than right side. Overall appears to be weak. Denies a headache at this time. Gait not tested. However recently walked to the bathroom as per family member in room. Urinary Catheter Management: Sandra: Cath Placed During This Visit: yes, but has since been removed by the nurse Reason for Continuing Indwelling Catheter: Decision to DC Catheter Urinary Catheter Date of Insertion: 10/24/24 Urinary Catheter Time of Insertion: 23:48 Date Urinary Catheter Removed: 10/25/24 Time Urinary Catheter Discontinued: 13:03 Data 10/26/24 04:59 10/26/24 04:59 Micro: Microbiology 10/24/24 19:57 Blood Culture - Preliminary Blood NEGATIVE TO DATE 10/24/24 19:53 Blood Culture - Preliminary Blood NEGATIVE TO DATE A&P Assessment and plan (1) Dehydration: (2) Cyclical vomiting: (3) Abnormal liver enzymes: (4) Hypokalemia: (5) Ketosis: (6) Esophagitis: (7) Thrush, oral: (8) Stomatitis: Plan Cyclical vomiting Does not smoke or drink alcohol, no use of marijuana Alpha gal deficiency She is currently being worked up at [facility] for mastocytosis EGD done October 14 which showed acute esophagitis without fungal infection in esophagus mucosa however she does have oral thrush for which I will give her nystatin, has the [facility] online portal report For concern related to gallbladder sludge General Surgery has been consulted I will keep her on Zosyn until then Start IV fluids Request dietitian to start PPN in the morning patient has not eaten in multiple weeks high risk for refeeding syndrome keep her on hall coordinator electrolytes including potassium magnesium and phosphorus Sandra catheter placed for urinary retention Requested autoimmune workup for abnormal liver enzymes Patient is not diabetic hemoglobin A1c 5.4 I will keep her on GI soft diet DVT prophylaxis Lovenox Plan for today: 10/25/2024. Patient noted to have severe thrush. 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 Reviewed her biopsy results from which she has been healed. Esophagitis and gastritis was noted with mast cell deposition. Per review of the report it appears that they have planned to start patient on antihistamines, but she has not yet received any prescription for the same. She has only been recommended to take Protonix thus far. Fungal stains were negative. Unable to see any results of viral cytopathic changes. Unable to find results of H. pylori testing. Check HIV 1 2 antigen antibody screen. Concern for underlying immunocompromising condition given severity of her symptoms. Possibly autoimmune disorder. Noted to have deranged LFTs, patient states this has chronically been noted over the past 2 to 3 months, possibly may have autoimmune hepatitis. DAYDAY panel was ordered last evening, results not expected to be back until about 24 hours. Gallbladder sludge on US. non specific wall thickening. Less likely to be cholecystitis as no right upper quadrant tenderness .Chronicity of symptoms. Discontinue piperacillin/tazobactam. For now we will continue IV hydration. She appears to be much better hydrated today. BMI is 27.K is 3.3 Continue nystatin swish and swallow. May physically have an invasive pharyngitis. She reports severe weakness to the point of not being able to move her lower extremities. Not being able to walk to the bathroom. PT/OT assessment ordered. reports beingvery stressed recently due to family dynamics and her childrens' illness. 10/26/2024 -Chart reviewed, patient interviewed. Agree with assessment and plan so far. ? Patient was seen by physical therapy and home exercise program has been recommended ? She was also seen by Occupational Therapy. ? Patient does report double vision and symptoms have been persistent for the last 12 days. Also has left-sided weakness. Difficult to do a neurological exam however unable to fully look right upper quarter. Right eye stained midline. Does have to cover 1 eye to see clearly. ? Has been reporting the symptoms for the last 12 days. ? Check MRI brain to rule out a potential stroke? Discussed with radiology. Will check with and without contrast study. ? Vasculitis workup is pending. ? Patient has been quite stressed recently due to family dynamics and issues with dialysis. ? Will plan for potential discharge in a.m. as long as patient remains stable. ? She may need neurology follow-up outpatient versus inpatient consult prior to discharge pending clinical course. ? Will stop normal saline. Patient developing hyperchloremic metabolic acidosis. ? Continue Diflucan. Attestations 2 Medical Necessity Statement*: continue iv hydration. Add fluconazole for severe thrush, HSV PCR to evaluate for viral stomatitis/esophagitis Diagnoses Dehydration E86.0 Cyclical vomiting R11.15 Abnormal liver enzymes R74.8 Hypokalemia E87.6 Ketosis E88.89 Esophagitis K20.90 Thrush, oral B37.0 Stomatitis K12.1
[2024-10-26] MEDS: gadobenate dimeglumine 20 mL vial 15 ML IV (15:06)
[2024-10-26 15:34] LABS: CENTROMERE B ANTIBODY <1.0 NEG AI (<1.0 NEG); JO-1 ANTIBODY <1.0 NEG AI (<1.0 NEG); RNP ANTIBODY <1.0 NEG AI (<1.0 NEG); SCL-70 ANTIBODY <1.0 NEG AI (<1.0 NEG); SJOGREN'S ANTIBODY (SS-A) <1.0 NEG AI (<1.0 NEG); SM ANTIBODY <1.0 NEG AI (<1.0 NEG); SS-B <1.0 NEG AI (<1.0 NEG)
--- NOTE | 2024-10-26 16:32 | USCV_ITS ---
Marisela Matute Age: 34 Gender: F : 1990 Exam Date: 10/26/2024 18:47 Ordering Phys: Cinthia Fortune MD Technologist: KAREN [place] [facility] [place]: wernicke's eval for cardiomyopathy BP: 111 / 77 HR: 66 Rhythm: Sinus Technical Quality: Adequate MEASUREMENTS (Male / Female) Normal Values 2D ECHO LV Diastolic Diameter PLAX 4.2 cm 4.2 - 5.9 / 3.9 - 5.3 cm IVS Diastolic Thickness 1.3 cm 0.6 - 1.0 / 0.6 - 0.9 cm IVS Systolic Thickness 1.6 cm LVPW Diastolic Thickness 1.4 cm 0.6 - 1.0 / 0.6 - 0.9 cm LVPW Systolic Thickness 2.0 cm LVOT Diameter 1.6 cm LV Ejection Fraction 2D Teich 67.0 % LV Ejection Fraction MOD 4C 59.9 % LV Ejection Fraction MOD 2C 77.6 % LV Ejection Fraction 2C AL 77.7 % LA Diameter 3.4 cm Aorta at Sinotubular Diameter 2.3 cm IVC Diameter 1.9 cm M-MODE LA Ao Ratio MM 1.1 AV Cusp Separation MM 1.6 cm DOPPLER AV Peak Velocity 132.0 cm/s LVOT Peak Velocity 84.0 cm/s AV Area Cont Eq vti 1.3 cm squared AV Area Cont Eq pk 1.2 cm squared MV Peak Velocity 94.0 cm/s MV Area PHT 3.9 cm squared Mitral E to A Ratio 1.2 TV Peak E Velocity 69.0 cm/s PV Peak Velocity 98.0 cm/s FINDINGS Left Ventricle Possibly normal LV size ejection fraction of 65%.no regional wall motion abnormalities. Right Ventricle The right ventricle is normal in size and function. Right Atrium The right atrium is normal in size. Left Atrium The left atrium is normal in size. Mitral Valve No gross abnormalities noted Aortic Valve No gross abnormalities noted Tricuspid Valve No gross abnormalities noted Pulmonic Valve No gross abnormalities noted Pericardium Normal pericardium without effusion. Aorta Normal ascending aorta dimension. IVC Normal inferior vena cava. CONCLUSIONS Possibly normal LV size ejection fraction of 65%.no regional wall motion abnormalities. Normal cardiac chamber sizes. No gross valvular abnormalities. There is no pericardial effusion. There are no intracardiac masses. No similar previous studies are available for comparison Dr Bennett Choi MD FACC (Electronically Signed) Final Date: 26 October 2024 23:52 S
[2024-10-26] MEDS: thiamine 500 MG in sodium chloride 0.9% (100 ml) 100 ML 210 MG IV (17:08)
[2024-10-26] MEDS: fluconazole premix 100 MG in empty flexible container 1 EACH 50 MG IV (17:08)
[2024-10-26 19:53] VITALS: BP 111/73; PULSE 61; RESP 17; TEMP 36.3; O2SAT 99
[2024-10-26 20:39] LABS: Hepatitis A Antibody IgM Non-Reactive (Nonreactive); Hepatitis B Core AB, Total Non-Reactive (Nonreactive); Hepatitis B Surface Antigen Non-Reactive (Nonreactive); Hepatitis C Virus Antibody Non-Reactive (Nonreactive)
[2024-10-27] VITALS (8 sets, daily range): BP systolic 100–113; BP diastolic 44–75; PULSE 60–72; RESP 14–18; TEMP 36.4–37.6; O2SAT 94–97; BMI 28.2
[2024-10-27] MEDS: thiamine 500 MG in sodium chloride 0.9% (100 ml) 100 ML 210 MG IV ×3 (00:20→17:26)
[2024-10-27] MEDS: enoxaparin 40 mg/0.4 mL Syringe SUBCUT (00:21)
[2024-10-27 08:39] LABS: Basophils % 0.5 %; Eosinophils # 0.2 10^3/uL (0.0-0.8); Eosinophils % 3.7 %; Lymphocytes # 1.1 10^3/uL (0.8-4.8); Lymphocytes % 25.3 %; Mean Corpuscular HGB Conc 35.6 g/dL (30-55); Mean Corpuscular Hemoglobin 31.4 pg (27-33); Mean Corpuscular Volume 88.2 fl (85-98); Mean Platelet Volume 10.1 fL (7.4-10.4); Monocytes # 0.4 10^3/uL (0.2-0.9); Neutrophils # 2.64 10^3/uL (1.8-7.7); Neutrophils % 60.7 %; Nucleated Red Blood Cells % 0 %; Platelet Count 129 10^3/cmm (157-399); Red Blood Count 3.06 10^6/uL (3.85-5.65); Red Cell Distribution Width 12.3 % (12.1-15.1); White Blood Count 4.35 10^3/uL (3.29-11.43)
[2024-10-27 08:57] LABS: Anion Gap 16.9 (5-19); Blood Urea Nitrogen 3 mg/dL (6-20); Calcium 9.2 mg/dL (8.5-10.5); Carbon Dioxide 20 mmol/L (22-29); Chloride 110 mmol/L (98-107); Creatinine Clr Calc Pharmacy 195.9362; Glomerular Filtration Rate 182.7 mL/min (90-130); Glucose 73 mg/dL (65-115); Magnesium 1.7 mg/dL (1.7-2.3); Osmolality Calculated 293 mOsm/kg (285-295); Phosphorus 4.3 mg/dL (2.5-4.5); Sodium 144 mmol/L (136-145)
[2024-10-27 09:08] LABS: Potassium 2.9 mmol/L (3.5-5.1)
[2024-10-27] MEDS: folic acid 1 mg Tablet PO (09:20)
[2024-10-27] MEDS: pantoprazole 40 mg SDV IVP ×2 (09:20→16:36)
[2024-10-27] MEDS: potassium chloride ER 20 mEq Tablet 40 MEQ PO ×2 (09:20→20:50)
--- NOTE | 2024-10-27 12:39 | P.PN_ITS ---
Subjective 2 Subjective: Patient seen and examined. She reports she is feeling better today. Denies any abdominal pain Vitals/I&O/Wt Last Vital Signs Temp 98.1 F 10/28/24 11:13 Pulse 69 10/28/24 11:13 Resp 16 10/28/24 11:13 BP 110/63 10/28/24 11:13 Pulse Ox 97 10/28/24 11:13 O2 Del Method Room Air 10/28/24 11:13 10/27/24 10/28/24 10/28/24 22:59 06:59 14:59 Intake Total 855 / 1080.0 105 / 1185.0 240 / 240 Output Total 1600 / 1600 Balance -745 / -520.0 105 / -415.0 240 / 240 Weight last 48 hrs Weight 162 lb 6.4 oz Weight 164 lb 4.8 oz Physical Exam 2 Narrative: General: No acute distress, awake alert and oriented x 3 Abdomen: Soft, nontender, nondistended Urinary Catheter Management: Sandra: Cath Placed During This Visit: yes, but has since been removed by the nurse Reason for Continuing Indwelling Catheter: Decision to DC Catheter Urinary Catheter Date of Insertion: 10/24/24 Urinary Catheter Time of Insertion: 23:48 Date Urinary Catheter Removed: 10/25/24 Time Urinary Catheter Discontinued: 13:03 Data 10/28/24 06:50 10/28/24 06:50 A&P Assessment and plan (1) Cyclical vomiting: (2) Headache: (3) Chronic cholecystitis: (4) Double vision: (5) Abnormal liver enzymes: Plan She does not have acute cholecystitis and the risks of undergoing major surgery right now are not outweighed by the benefits. I spoke with the hospitalist, Dr. Fortune. Gallbladder is not causing her current symptoms. She likely has either viral, autoimmune or idiopathic hepatitis causing her elevated LFTs. Further workup is being done per medicine related to her headache and double vision Diet as tolerated No acute surgical intervention General Surgery will sign off. Please reconsult if the need arises If she develops gallbladder symptoms after discharge, she should follow-up in my office to discuss cholecystectomy Attestations 2 Medical Necessity Statement*: Per primary Coding Level of Care Code 66223 Diagnoses Cyclical vomiting R11.15 Headache R51.9 Chronic cholecystitis K81.1 Double vision H53.2 Abnormal liver enzymes R74.8
[2024-10-27 14:25] LABS: 25 Hydroxy Vitamin D 16 ng/mL (30-100); Vitamin B12 597 pg/mL (232-1245)
--- NOTE | 2024-10-27 14:30 | P.PN_ITS ---
Subjective 2 Subjective: seen today Reviewed MRI results from yesterday. Imaging study indicates Warnicke's encephalopathy. Discussed with patient. She has been started on IV thiamine. Patient feels slightly better today however continues to complain of diplopia. Vitals/I&O/Wt Last Vital Signs Temp 98.2 F 10/27/24 11:51 Pulse 70 10/27/24 11:51 Resp 15 10/27/24 11:51 BP 108/72 10/27/24 11:51 Pulse Ox 96 10/27/24 11:51 O2 Del Method Room Air 10/27/24 11:51 10/26/24 10/27/24 10/27/24 22:59 06:59 14:59 Intake Total 1155 / 1875 345 / 2220 225.0 / 225.0 Output Total 1000 / 1000 Balance 1155 / 1875 -655 / 1220 225.0 / 225.0 Weight last 48 hrs Weight 74.525 kg Weight 73.573 kg Physical Exam 2 Narrative: General: No acute distress, AO x3 HEENT: PERRLA, severe thrush affecting her tongue. Redness over soft palate. Chest: Normal vesicular breath sounds, no added sounds, equal good air entry bilaterally CVS: S1-S2 regular, no murmurs, no tachycardia, no gallops, no rubs Abdomen: Soft, nontender, no organomegaly, bowel sounds present Neuro: On cranial nerve testing patient unable to look towards upper outer corner of right eye. diplopia reported. Left side weakness greater than right side. Overall appears to be weak. Denies a headache at this time. Gait not tested. slightly improved energy compared to yesterday. At time cannot look sideways indication lateral rectus palsy. Urinary Catheter Management: Sandra: Cath Placed During This Visit: yes, but has since been removed by the nurse Reason for Continuing Indwelling Catheter: Decision to DC Catheter Urinary Catheter Date of Insertion: 10/24/24 Urinary Catheter Time of Insertion: 23:48 Date Urinary Catheter Removed: 10/25/24 Time Urinary Catheter Discontinued: 13:03 Data 10/27/24 08:27 10/27/24 08:27 A&P Assessment and plan (1) Dehydration: (2) Cyclical vomiting: (3) Abnormal liver enzymes: (4) Hypokalemia: (5) Ketosis: (6) Esophagitis: (7) Thrush, oral: (8) Stomatitis: Plan Cyclical vomiting Does not smoke or drink alcohol, no use of marijuana Alpha gal deficiency She is currently being worked up at [facility] for mastocytosis EGD done October 14 which showed acute esophagitis without fungal infection in esophagus mucosa however she does have oral thrush for which I will give her nystatin, has the [employer] portal report For concern related to gallbladder sludge General Surgery has been consulted I will keep her on Zosyn until then Start IV fluids Request dietitian to start PPN in the morning patient has not eaten in multiple weeks high risk for refeeding syndrome keep her on court monitor electrolytes including potassium magnesium and phosphorus Sandra catheter placed for urinary retention Requested autoimmune workup for abnormal liver enzymes Patient is not diabetic hemoglobin A1c 5.4 I will keep her on GI soft diet DVT prophylaxis Lovenox Plan for today: 10/25/2024. Patient noted to have severe thrush. 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 Reviewed her biopsy results from which she has been healed. Esophagitis and gastritis was noted with mast cell deposition. Per review of the report it appears that they have planned to start patient on antihistamines, but she has not yet received any prescription for the same. She has only been recommended to take Protonix thus far. Fungal stains were negative. Unable to see any results of viral cytopathic changes. Unable to find results of H. pylori testing. Check HIV 1 2 antigen antibody screen. Concern for underlying immunocompromising condition given severity of her symptoms. Possibly autoimmune disorder. Noted to have deranged LFTs, patient states this has chronically been noted over the past 2 to 3 months, possibly may have autoimmune hepatitis. DAYDAY panel was ordered last evening, results not expected to be back until about 24 hours. Gallbladder sludge on US. non specific wall thickening. Less likely to be cholecystitis as no right upper quadrant tenderness .Chronicity of symptoms. Discontinue piperacillin/tazobactam. For now we will continue IV hydration. She appears to be much better hydrated today. BMI is 27.K is 3.3 Continue nystatin swish and swallow. May physically have an invasive pharyngitis. She reports severe weakness to the point of not being able to move her lower extremities. Not being able to walk to the bathroom. PT/OT assessment ordered. reports beingvery stressed recently due to family dynamics and her childrens' illness. 10/26/2024 -Chart reviewed, patient interviewed. Agree with assessment and plan so far. ? Patient was seen by physical therapy and home exercise program has been recommended ? She was also seen by Occupational Therapy. ? Patient does report double vision and symptoms have been persistent for the last 12 days. Also has left-sided weakness. Difficult to do a neurological exam however unable to fully look right upper quarter. Right eye stained midline. Does have to cover 1 eye to see clearly. ? Has been reporting the symptoms for the last 12 days. ? Check MRI brain to rule out a potential stroke? Discussed with radiology. Will check with and without contrast study. ? Vasculitis workup is pending. ? Patient has been quite stressed recently due to family dynamics and issues with dialysis. ? Will plan for potential discharge in a.m. as long as patient remains stable. ? She may need neurology follow-up outpatient versus inpatient consult prior to discharge pending clinical course. ? Will stop normal saline. Patient developing hyperchloremic metabolic acidosis. ? Continue Diflucan. 10/27/2024 - MRI brain shows: 1. Above-described findings suspicious for Wernicke's encephalopathy in the appropriate clinical setting. Recommend correlation with clinical history. 2. Moderate cerebellar atrophy advanced for patient this age nonspecific but can be seen with alcoholic encephalopathy and chronic phenytoin use or seizures - - Neurology consulted ? Continues to complain of diplopia. This is most likely secondary to Warnicke's. ? Order high-dose IV thiamine 500 mg 3 times daily x 48 hours then transition to 250 mg IM or IV daily for another 5 days ? Check vitamin B12 level, vitamin D ? Patient being worked up for mastocytosis at [facility]. She will need to follow-up with allergy immunology after discharge ? Vasculitis workup pending ? Neurology consulted. Will await recommendations ? Continue Diflucan at this time. Complete total 7-day course. ? Continue to work with physical therapy. Attestations 2 Medical Necessity Statement*: requires inpatient hospitalizatoin for wernickes requiring IV thiamine Diagnoses Dehydration E86.0 Cyclical vomiting R11.15 Abnormal liver enzymes R74.8 Hypokalemia E87.6 Ketosis E88.89 Esophagitis K20.90 Thrush, oral B37.0 Stomatitis K12.1
[2024-10-27 14:44] LABS: COMPLEMENT, TOTAL (CH50) 50 U/mL (31-60)
[2024-10-27] MEDS: fluconazole premix 100 MG in empty flexible container 1 EACH 50 MG IV (16:36)
--- NOTE | 2024-10-27 18:41 | P.CONIM_ITS ---
Providers/Reason For Consult 2 Consulting Physician/Specialty*: Cinthia Fortune MD Reason for Consult*: Diagnosis based on MRI scan requesting neurologic opinion about it Attending Physician: Cinthia Fortune MD History of Present Illness History of Present Illness Marisela Matute is a 34 year old female who presented to our emergency department 10/24/2024, 3 days ago with complaint of continuous vomiting and abdominal pain for a month. Reportedly she had an upper endoscopy in September at an outside facility and developed continuous vomiting. Despite that her BUN and creatinine look pretty good but her potassium was low at 3.3 and she was acidotic and lethargic. She was profoundly dehydrated and tachycardic with heart rate in the 140s. She got a couple of liters of IV fluids in the ER. She was noted to have a massively distended urinary bladder. She had gallbladder sludge. CT of the head was unremarkable. Her vitamin B12 was normal at 647. Lactate was not elevated. Other pertinent factors include the fact that she was diagnosed with alpha gal in July and then she developed recurrent nausea and vomiting by September to the point that she could not keep anything down. She had an EGD at [facility] that showed esophagitis and severe oral thrush. 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 Dr. Criag initiated a connective tissue workup. Machinist [employer] was consulted for PPN because the patient had not actually consumed anything orally for weeks. Dr. Niño noted that the stomatitis was severe and that she also appeared to have HSV. Dr. Fortune came on yesterday and noticed that the patient was closing one eye and complaining of diplopia. Dr. Fortune ordered an MRI because of the diplopia and left-sided weakness. Her MRI showed restricted diffusion in the internal capsule, medial thalami and increased signal in the mamillary bodies and periaqueductal leal matter typical for Wernicke's encephalopathy. She also has moderate cerebellar atrophy. Dr. Devika Vicente started her on high-dose intravenous thiamine. The patient has a history of chronic digestive issues, feeling unable to digest foods properly, leading to nausea and vomiting. In July, a tick workup revealed alpha-gal syndrome, prompting dietary changes. By mid-September, the patient experienced increased nausea and food sensitivities, reacting to various foods and smells, including high-histamine foods, oxalates, and salicylates. The patient was primarily consuming chicken, broccoli, apples, and peaches. On October 14, the patient underwent an endoscopy at [facility], revealing several mast cells in the stomach, duodenum and small bowel not diagnostic. I reviewed the biopsy results on the patient's portal from [facility] and those need to be downloaded to the chart. WHO diagnostic criteria for systemic mastocytosis requires Multifocal dense infiltrates of mast cells (>=5 mast cells in aggregates) detected in sections of bone marrow and/or other extracutaneous organ(s). The patient has experienced flushing episodes, described as a chemical sunburn sensation. The patient also reports a history of migraines since childhood, with recent episodes of cyclic vomiting. Her nausea started more than a year ago and has been intermittent. She has been to an urgent care clinic affiliated with [facility] on multiple occasions and received IV fluids with diagnosis of constipation on several occasions. It is the impression of the patient's the patient's symptoms have been attributed psychological causes although a physical explanation was sought by taking her to endoscopy. It has been a month since she could eat. Initially she was able to consume the restricted diet prescribed for alpha gal by her nurse practitioner but soon even fruits became noxious to her and she could not stand the taste or the smell. She has been taking small restricted meals in the hospital in the last couple of days for the first time in a month. - The patient has a 6-year-old daughter who was born prematurely and spent time in the NICU. Review of Systems 2 Const: Denies: fever(s), change in weight or fatigue Eyes: Reports: change in vision (She has had diplopia for several weeks gradually worsening), blurry vision and other (Photophobia); Denies: blind spots, photophobia, eye discomfort or seeing flashes ENMT: Denies: odynophagia, hoarseness, change in hearing, tinnitus, sinus pain or other (Loss of taste/smell) Card: Denies: chest pain, palpitations, syncope or other (Calf cramps) Resp: Denies: dyspnea, non-productive cough, wheezing or hemoptysis GI: Denies: abdominal pain, nausea, heartburn, diarrhea, constipation or hematochezia : Denies: urinary frequency or urinary incontinence Musc: Denies: neck pain, muscle weakness or other (Muscle pain) Skin/Breast: Denies: rash, new lesions or breast mass Neuro: Reports: headache(s) (She believes that when she is nauseated she usually has some headache), weakness in extremities, lack of coordination and difficulty walking; Denies: numbness in extremities, sensory changes, confusion, Slurred speech present or seizure-like activity Psych: Denies: depression, irritability, memory loss, difficulty concentrating or other (Personality changes) Endo: Denies: polyuria, polydipsia, excessive sweating or change in body appearance Navid/Lymph: Denies: easy bruising, easy bleeding or enlarged lymph nodes All/Imm: Reports: facial swelling, food intolerance and other (She has episodes of severe erythema of the face) Medications/Allergies Home Medications Medication Instructions Recorded Confirmed Last Taken Type No Known Home Medications 10/25/24 10/25/24 Unknown History Allergies Allergy/AdvReac Type Severity Reaction Status Date / Time Alpha-Gal Allergy Unknown Verified 10/24/24 18:59 (Ksutaxtwq-Lxlbr-1,3-Gala Current Medications Generic Name Dose Route Start Last Admin Trade Name Felixq PRN Reason Stop Dose Admin Enoxaparin Sodium 40 mg 10/25/24 00:36 10/27/24 00:21 Enoxaparin 40 Mg/0.4 Ml Syringe SUBCUT 40 mg Q24H MADAI Administration Folic Acid 1 mg 10/27/24 09:00 10/27/24 09:20 Folic Acid 1 Mg Tablet PO 1 mg DAILY MADAI Administration Fluconazole 100 mg/ N/A 50 mls @ 50 mls/hr 10/25/24 16:30 10/27/24 17:54 IV Infused Q24H MADAI Infusion Thiamine HCl 500 mg/ Sodium 105 mls @ 210 mls/hr 10/26/24 17:00 10/27/24 18:00 Chloride IV 10/28/24 09:29 Infused Q8H MADAI Infusion Pantoprazole Sodium 40 mg 10/25/24 09:00 10/27/24 16:36 Pantoprazole 40 Mg Sdv IVP 40 mg BID MADAI Administration Potassium Chloride 40 meq 10/27/24 09:15 10/27/24 09:20 Potassium Chloride Er 20 Meq Tablet PO 10/27/24 21:16 40 meq Q12H MADAI Administration PFSH Acute 2 PFSH: Medical History MTHFR mutation Preeclampsia HELLP syndrome Vitals/I&O/Wt Last Vital Signs Temp 98.2 F 10/27/24 15:11 Pulse 68 10/27/24 15:11 Resp 16 10/27/24 15:11 BP 100/62 10/27/24 15:11 Pulse Ox 94 10/27/24 15:11 O2 Del Method Room Air 10/27/24 15:11 10/27/24 10/27/24 10/27/24 06:59 14:59 22:59 Intake Total 345 / 2220 225.0 / 225.0 155 / 380.0 Output Total 1000 / 1000 1000 / 1000 Balance -655 / 1220 225.0 / 225.0 -845 / -620.0 Weight last 48 hrs Weight 164 lb 4.8 oz Weight 162 lb 3.2 oz Physical Exam 2 Narrative: GENERAL: The patient was thin, supine in the hospital bed, squinting with alternate eyes. MENTAL STATUS: She tells a fluent story. She has normal amount of support from her . Her memory was excellent and she could perform serial sevens and spell the word world backward as well as remembering 3 objects for short time. Affect was euthymic. CRANIAL NERVES: Vision was not tested. 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 Facial movements symmetric. Tongue and palate midline without dysarthria. MOTOR: It is painful for her to extend her arms. She has several muscles missing in the right arm including part of her bicep and pectoralis. Paste Worker are strong on both sides. No foot drop. Full strength testing was not done. SENSATION: Touch was intact in the four extremities distally. COORDINATION: She describes being unable to walk and it was painful for her to move her legs. I did not get her up from the bed. DEEP TENDON REFLEXES: Areflexic throughout. GAIT: Not tested. HEENT: No rash. NECK: Carotid upstroke was strong bilaterally without bruits. The thyroid was not enlarged and there were no palpable lymph nodes. CHEST: Clear to auscultation. CARDIOVASCULAR: The heart sounds were normal without murmur or gallop. Regular rate and rhythm. EXTREMITIES: She has a chronic deformity of the proximal right arm. Urinary Catheter Management: Sandra: Cath Placed During This Visit: yes, but has since been removed by the nurse Reason for Continuing Indwelling Catheter: Decision to DC Catheter Urinary Catheter Date of Insertion: 10/24/24 Urinary Catheter Time of Insertion: 23:48 Date Urinary Catheter Removed: 10/25/24 Time Urinary Catheter Discontinued: 13:03 Data 10/28/24 06:50 10/28/24 06:50 A&P Assessment and plan (1) Wernicke's encephalopathy with cerebellar manifestation: I strongly agree with current treatment attempting to get this patient's nutrition back through parenteral means. I strongly agree with high-dose thiamine. Considering the long duration of her symptoms prior to arriving here her prognosis is guarded as far as recovery from her diplopia and ataxia but I am hopeful. I am not sure that her cyclic vomiting is not migraine. There is a strong probability that she has chronic migraine with cyclic vomiting. Further exploration of the biopsy of the stomach she had at [facility] needs to be done but I do not think from my brief review of that that she meets criteria for mastocytosis. She does have episodic flushing without syncope and unexplained cyclic vomiting so it is a reasonable option to work her up for that disorder with further biochemical testing especially checking serum tryptase. Further investigation with bone marrow biopsy would be reasonable. (2) Refeeding syndrome: (3) Stomatitis: (4) Esophagitis: (5) Abnormal liver enzymes: (6) Dehydration: (7) Hypokalemia: Consult Attestations 2 Medical Necessity Statement: 34-year-old woman with life-threatening malnutrition secondary to cyclic vomiting and culminating in Wernicke's encephalopathy with profound gait disorder. Coding Level of Care Code 82339 Diagnoses Wernicke's encephalopathy with cerebellar manifestation E51.2 Refeeding syndrome E87.8 Stomatitis K12.1 Esophagitis K20.90 Abnormal liver enzymes R74.8 Dehydration E86.0 Hypokalemia E87.6
[2024-10-28] MEDS: thiamine 500 MG in sodium chloride 0.9% (100 ml) 100 ML 210 MG IV ×2 (00:16→09:54)
[2024-10-28] MEDS: enoxaparin 40 mg/0.4 mL Syringe SUBCUT ×2 (00:17→23:59)
[2024-10-28 01:51] LABS: ANCA Screen NEGATIVE (NEGATIVE)
[2024-10-28 04:00] VITALS: BP 113/73; PULSE 69; RESP 16; TEMP 37.3; O2SAT 92
[2024-10-28 06:59] LABS: Basophils % 0.5 %; Eosinophils # 0.2 10^3/uL (0.0-0.8); Eosinophils % 5.5 %; Hematocrit 27.6 % (36-47); Lymphocytes # 1.4 10^3/uL (0.8-4.8); Lymphocytes % 32.4 %; Mean Corpuscular HGB Conc 35.1 g/dL (30-55); Mean Corpuscular Hemoglobin 31.2 pg (27-33); Mean Corpuscular Volume 88.7 fl (85-98); Mean Platelet Volume 10.6 fL (7.4-10.4); Monocytes # 0.4 10^3/uL (0.2-0.9); Monocytes % 8.4 %; Neutrophils # 2.03 10^3/uL (1.8-7.7); Neutrophils % 48.6 %; Nucleated Red Blood Cells % 0 %; Platelet Count 129 10^3/cmm (157-399); Red Blood Count 3.11 10^6/uL (3.85-5.65); Red Cell Distribution Width 12.3 % (12.1-15.1); White Blood Count 4.17 10^3/uL (3.29-11.43)
[2024-10-28 07:15] LABS: Anion Gap 17.6 (5-19); Blood Urea Nitrogen 2 mg/dL (6-20); Calcium 9.3 mg/dL (8.5-10.5); Carbon Dioxide 22 mmol/L (22-29); Chloride 107 mmol/L (98-107); Creatinine Clr Calc Pharmacy 194.8575; Glomerular Filtration Rate 182.7 mL/min (90-130); Glucose 83 mg/dL (65-115); Magnesium 1.8 mg/dL (1.7-2.3); Osmolality Calculated 291 mOsm/kg (285-295); Potassium 3.6 mmol/L (3.5-5.1); Sodium 143 mmol/L (136-145)
[2024-10-28 07:23] VITALS: BP 108/65; PULSE 71; RESP 15; TEMP 36.7; O2SAT 95
[2024-10-28 08:34] LABS: THYROID PEROXIDASE ANTIBODIES <1 IU/mL (<9)
[2024-10-28 09:03] VITALS: PULSE 77; RESP 16; O2SAT 96
[2024-10-28 09:49] LABS: Phosphatidylserine IgG <9 U (< OR = 30); Phosphatidylserine IgM <9 U (< OR = 30)
[2024-10-28] MEDS: pantoprazole 40 mg SDV IVP ×2 (09:55→18:00)
[2024-10-28] MEDS: folic acid 1 mg Tablet PO (09:55)
[2024-10-28 10:15] LABS: ANA SCREEN, IFA POSITIVE (NEGATIVE)
[2024-10-28 10:46] LABS: ANA PATTERN Nuclear, Speckled; ANA TITER 1:40 titer
[2024-10-28 11:13] VITALS: BP 110/63; PULSE 69; RESP 16; TEMP 36.7; O2SAT 97
--- NOTE | 2024-10-28 13:27 | PM.PN ---
Subjective Subjective: seen this am diplopia slightly improved, has tried to increase oral intake Vitals/I&O/Wt Last Vital Signs Temp 98.1 F 10/28/24 11:13 Pulse 69 10/28/24 11:13 Resp 16 10/28/24 11:13 BP 110/63 10/28/24 11:13 Pulse Ox 97 10/28/24 11:13 O2 Del Method Room Air 10/28/24 11:13 10/27/24 10/28/24 10/28/24 22:59 06:59 14:59 Intake Total 855 / 1080.0 105 / 1185.0 240 / 240 Output Total 1600 / 1600 Balance -745 / -520.0 105 / -415.0 240 / 240 Weight last 48 hrs Weight 73.663 kg Weight 74.525 kg Physical Exam Narrative: General: No acute distress, AO x3 HEENT: PERRLA, severe thrush affecting her tongue. Redness over soft palate. Chest: Normal vesicular breath sounds, no added sounds, equal good air entry bilaterally CVS: S1-S2 regular, no murmurs, no tachycardia, no gallops, no rubs Abdomen: Soft, nontender, no organomegaly, bowel sounds present Neuro: able to move all 4 extremities, 6th nerve palsy present, no other focal deficits Urinary Catheter Management: Sandra: Cath Placed During This Visit: yes, but has since been removed by the nurse Reason for Continuing Indwelling Catheter: Decision to DC Catheter Urinary Catheter Date of Insertion: 10/24/24 Urinary Catheter Time of Insertion: 23:48 Date Urinary Catheter Removed: 10/25/24 Time Urinary Catheter Discontinued: 13:03 Data 10/28/24 06:50 10/28/24 06:50 A&P Assessment and plan (1) Dehydration: (2) Cyclical vomiting: (3) Abnormal liver enzymes: (4) Hypokalemia: (5) Ketosis: (6) Esophagitis: (7) Thrush, oral: (8) Stomatitis: Plan Cyclical vomiting Does not smoke or drink alcohol, no use of marijuana Alpha gal deficiency She is currently being worked up at [facility] for mastocytosis EGD done October 14 which showed acute esophagitis without fungal infection in esophagus mucosa however she does have oral thrush for which I will give her nystatin, has the [employer] online portal report For concern related to gallbladder sludge General Surgery has been consulted I will keep her on Zosyn until then Start IV fluids Request dietitian to start PPN in the morning patient has not eaten in multiple weeks high risk for refeeding syndrome keep her on quality assurance monitor chassis electrolytes including potassium magnesium and phosphorus Sandra catheter placed for urinary retention Requested autoimmune workup for abnormal liver enzymes Patient is not diabetic hemoglobin A1c 5.4 I will keep her on GI soft diet DVT prophylaxis Lovenox Plan for today: 10/25/2024. Patient noted to have severe thrush. 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 Reviewed her biopsy results from which she has been healed. Esophagitis and gastritis was noted with mast cell deposition. Per review of the report it appears that they have planned to start patient on antihistamines, but she has not yet received any prescription for the same. She has only been recommended to take Protonix thus far. Fungal stains were negative. Unable to see any results of viral cytopathic changes. Unable to find results of H. pylori testing. Check HIV 1 2 antigen antibody screen. Concern for underlying immunocompromising condition given severity of her symptoms. Possibly autoimmune disorder. Noted to have deranged LFTs, patient states this has chronically been noted over the past 2 to 3 months, possibly may have autoimmune hepatitis. DAYDAY panel was ordered last evening, results not expected to be back until about 24 hours. Gallbladder sludge on US. non specific wall thickening. Less likely to be cholecystitis as no right upper quadrant tenderness .Chronicity of symptoms. Discontinue piperacillin/tazobactam. For now we will continue IV hydration. She appears to be much better hydrated today. BMI is 27.K is 3.3 Continue nystatin swish and swallow. May physically have an invasive pharyngitis. She reports severe weakness to the point of not being able to move her lower extremities. Not being able to walk to the bathroom. PT/OT assessment ordered. reports beingvery stressed recently due to family dynamics and her childrens' illness. 10/26/2024 -Chart reviewed, patient interviewed. Agree with assessment and plan so far. ? Patient was seen by physical therapy and home exercise program has been recommended ? She was also seen by Occupational Therapy. ? Patient does report double vision and symptoms have been persistent for the last 12 days. Also has left-sided weakness. Difficult to do a neurological exam however unable to fully look right upper quarter. Right eye stained midline. Does have to cover 1 eye to see clearly. ? Has been reporting the symptoms for the last 12 days. ? Check MRI brain to rule out a potential stroke? Discussed with radiology. Will check with and without contrast study. ? Vasculitis workup is pending. ? Patient has been quite stressed recently due to family dynamics and issues with dialysis. ? Will plan for potential discharge in a.m. as long as patient remains stable. ? She may need neurology follow-up outpatient versus inpatient consult prior to discharge pending clinical course. ? Will stop normal saline. Patient developing hyperchloremic metabolic acidosis. ? Continue Diflucan. 10/27/2024 - MRI brain shows: 1. Above-described findings suspicious for Wernicke's encephalopathy in the appropriate clinical setting. Recommend correlation with clinical history. 2. Moderate cerebellar atrophy advanced for patient this age nonspecific but can be seen with alcoholic encephalopathy and chronic phenytoin use or seizures - - Neurology consulted ? Continues to complain of diplopia. This is most likely secondary to Warnicke's. ? Order high-dose IV thiamine 500 mg 3 times daily x 48 hours then transition to 250 mg IM or IV daily for another 5 days ? Check vitamin B12 level, vitamin D ? Patient being worked up for mastocytosis at [facility]. She will need to follow-up with allergy immunology after discharge ? Vasculitis workup pending ? Neurology consulted. Will await recommendations ? Continue Diflucan at this time. Complete total 7-day course. ? Continue to work with physical therapy. 10/28/2024 -Appreciate neurology consultation. ? Patient has completed IV thiamine 503 times a day x 48 hours. Will start 250 IV daily starting tomorrow for 5 days. ? Vitamin D level low. Will place on 5000 units daily. Vitamin B12 647. ? Consult dietitian for PPN support. ? Have discussed with the patient regarding supplemental drinks as well. ? Continue Diflucan. Stop date October 31. Total 7 days ? Continue to work with physical therapy. ? Patient will need referral to tertiary care for workup and management of mastocytosis. ? Neuro follow-up at discharge for management of migraines. ? Refeeding syndrome: Continue to replete electrolytes. Attestations Medical Necessity Statement*: requires inpatient hospitalizatoin for wernickes requiring IV thiamine Diagnoses Dehydration E86.0 Cyclical vomiting R11.15 Abnormal liver enzymes R74.8 Hypokalemia E87.6 Ketosis E88.89 Esophagitis K20.90 Thrush, oral B37.0 Stomatitis K12.1
[2024-10-28 15:13] VITALS: BP 102/69; PULSE 67; RESP 15; TEMP 36.7; O2SAT 97
[2024-10-28] MEDS: AA-Dex 4.25%-5% w/Lytes 1,000 ML with multivitamin inj 10 ML 83 ML IV (15:34)
[2024-10-28] MEDS: fluconazole premix 100 MG in empty flexible container 1 EACH 50 MG IV (17:53)
[2024-10-28 19:56] VITALS: BP 120/79; PULSE 61; RESP 16; TEMP 36.6; O2SAT 96
[2024-10-29] VITALS (7 sets, daily range): BP systolic 101–120; BP diastolic 66–78; PULSE 63–77; RESP 12–16; TEMP 36.3–36.7; O2SAT 93–96
[2024-10-29 03:19] LABS: HSV 1 DNA Not Detected (Not Detected); HSV 2 DNA Detected (Not Detected); HSV Source LIPS
[2024-10-29 06:35] LABS: Basophils % 0.7 %; Eosinophils # 0.2 10^3/uL (0.0-0.8); Eosinophils % 4.7 %; Lymphocytes # 1.2 10^3/uL (0.8-4.8); Lymphocytes % 28.1 %; Mean Corpuscular HGB Conc 34.7 g/dL (30-55); Mean Corpuscular Hemoglobin 30.7 pg (27-33); Mean Corpuscular Volume 88.5 fl (85-98); Mean Platelet Volume 10.7 fL (7.4-10.4); Monocytes # 0.5 10^3/uL (0.2-0.9); Monocytes % 12.8 %; Neutrophils # 2.12 10^3/uL (1.8-7.7); Neutrophils % 50.2 %; Nucleated Red Blood Cells % 0 %; Platelet Count 132 10^3/cmm (157-399); Red Blood Count 3.39 10^6/uL (3.85-5.65); Red Cell Distribution Width 12.1 % (12.1-15.1); White Blood Count 4.23 10^3/uL (3.29-11.43)
[2024-10-29] MEDS: AA-Dex 4.25%-5% w/Lytes 1,000 ML with multivitamin inj 10 ML 43 ML IV (06:41)
[2024-10-29 06:53] LABS: Anion Gap 11.5 (5-19); Blood Urea Nitrogen 6 mg/dL (6-20); Calcium 9.7 mg/dL (8.5-10.5); Carbon Dioxide 27 mmol/L (22-29); Chloride 107 mmol/L (98-107); Glomerular Filtration Rate 254.7 mL/min (90-130); Glucose 97 mg/dL (65-115); Osmolality Calculated 292 mOsm/kg (285-295); Phosphorus 3.9 mg/dL (2.5-4.5); Potassium 3.5 mmol/L (3.5-5.1); Sodium 142 mmol/L (136-145)
[2024-10-29] MEDS: folic acid 1 mg Tablet PO (08:20)
[2024-10-29] MEDS: pantoprazole 40 mg SDV IVP ×2 (08:20→17:00)
[2024-10-29] MEDS: thiamine 250 MG in sodium chloride 0.9% (100 ml) 100 ML 210 MG IV (08:20)
--- NOTE | 2024-10-29 10:14 | P.PN_ITS ---
Subjective 2 Subjective: Seen this morning. Oral intake 25% of her meals. Definitely improved compared to before. ? Strength is also improved. Diplopia slightly improved as well. at bedside. DAYDAY nuclear membrane pattern nuclear speckled, DAYDAY IFA and titer 1: 40. Rest of labs are pending at this time. Vitals/I&O/Wt Last Vital Signs Temp 97.8 F 10/29/24 04:00 Pulse 73 10/29/24 08:01 Resp 16 10/29/24 08:01 BP 115/76 10/29/24 04:00 Pulse Ox 95 10/29/24 08:01 O2 Del Method Room Air 10/29/24 08:01 10/28/24 10/29/24 10/29/24 22:59 06:59 14:59 Intake Total 679.967 / 181.162 2451.033 / 1975.000 Output Total 800 / 800 Balance -120.033 / 711.842 6514.033 / 1175.000 Weight last 48 hrs Weight 72.393 kg Weight 73.663 kg Physical Exam 2 Narrative: General: No acute distress, AO x3 HEENT: PERRLA, severe thrush affecting her tongue. Chest: Normal vesicular breath sounds, no added sounds, equal good air entry bilaterally CVS: S1-S2 regular, no murmurs, no tachycardia, no gallops, no rubs Abdomen: Soft, nontender, no organomegaly, bowel sounds present Neuro: able to move all 4 extremities, 6th nerve palsy present, slightly improved, no other focal deficits, strength improved compared to before. Urinary Catheter Management: Sandra: Cath Placed During This Visit: yes, but has since been removed by the nurse Reason for Continuing Indwelling Catheter: Decision to DC Catheter Urinary Catheter Date of Insertion: 10/24/24 Urinary Catheter Time of Insertion: 23:48 Date Urinary Catheter Removed: 10/25/24 Time Urinary Catheter Discontinued: 13:03 Data 10/29/24 06:03 10/29/24 06:03 A&P Assessment and plan (1) Dehydration: (2) Cyclical vomiting: (3) Abnormal liver enzymes: (4) Hypokalemia: (5) Ketosis: (6) Esophagitis: (7) Thrush, oral: (8) Stomatitis: Plan Cyclical vomiting Does not smoke or drink alcohol, no use of marijuana Alpha gal deficiency She is currently being worked up at [facility] for mastocytosis EGD done October 14 which showed acute esophagitis without fungal infection in esophagus mucosa however she does have oral thrush for which I will give her nystatin, has the [facility] online portal report For concern related to gallbladder sludge General Surgery has been consulted I will keep her on Zosyn until then Start IV fluids Request dietitian to start PPN in the morning patient has not eaten in multiple weeks high risk for refeeding syndrome keep her on outsewer electrolytes including potassium magnesium and phosphorus Sandra catheter placed for urinary retention Requested autoimmune workup for abnormal liver enzymes Patient is not diabetic hemoglobin A1c 5.4 I will keep her on GI soft diet DVT prophylaxis Lovenox Plan for today: 10/25/2024. Patient noted to have severe thrush. 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 Reviewed her biopsy results from which she has been healed. Esophagitis and gastritis was noted with mast cell deposition. Per review of the report it appears that they have planned to start patient on antihistamines, but she has not yet received any prescription for the same. She has only been recommended to take Protonix thus far. Fungal stains were negative. Unable to see any results of viral cytopathic changes. Unable to find results of H. pylori testing. Check HIV 1 2 antigen antibody screen. Concern for underlying immunocompromising condition given severity of her symptoms. Possibly autoimmune disorder. Noted to have deranged LFTs, patient states this has chronically been noted over the past 2 to 3 months, possibly may have autoimmune hepatitis. DAYDAY panel was ordered last evening, results not expected to be back until about 24 hours. Gallbladder sludge on US. non specific wall thickening. Less likely to be cholecystitis as no right upper quadrant tenderness .Chronicity of symptoms. Discontinue piperacillin/tazobactam. For now we will continue IV hydration. She appears to be much better hydrated today. BMI is 27.K is 3.3 Continue nystatin swish and swallow. May physically have an invasive pharyngitis. She reports severe weakness to the point of not being able to move her lower extremities. Not being able to walk to the bathroom. PT/OT assessment ordered. reports beingvery stressed recently due to family dynamics and her childrens' illness. 10/26/2024 -Chart reviewed, patient interviewed. Agree with assessment and plan so far. ? Patient was seen by physical therapy and home exercise program has been recommended ? She was also seen by Occupational Therapy. ? Patient does report double vision and symptoms have been persistent for the last 12 days. Also has left-sided weakness. Difficult to do a neurological exam however unable to fully look right upper quarter. Right eye stained midline. Does have to cover 1 eye to see clearly. ? Has been reporting the symptoms for the last 12 days. ? Check MRI brain to rule out a potential stroke? Discussed with radiology. Will check with and without contrast study. ? Vasculitis workup is pending. ? Patient has been quite stressed recently due to family dynamics and issues with dialysis. ? Will plan for potential discharge in a.m. as long as patient remains stable. ? She may need neurology follow-up outpatient versus inpatient consult prior to discharge pending clinical course. ? Will stop normal saline. Patient developing hyperchloremic metabolic acidosis. ? Continue Diflucan. 10/27/2024 - MRI brain shows: 1. Above-described findings suspicious for Wernicke's encephalopathy in the appropriate clinical setting. Recommend correlation with clinical history. 2. Moderate cerebellar atrophy advanced for patient this age nonspecific but can be seen with alcoholic encephalopathy and chronic phenytoin use or seizures - - Neurology consulted ? Continues to complain of diplopia. This is most likely secondary to Warnicke's. ? Order high-dose IV thiamine 500 mg 3 times daily x 48 hours then transition to 250 mg IM or IV daily for another 5 days ? Check vitamin B12 level, vitamin D ? Patient being worked up for mastocytosis at [facility]. She will need to follow-up with allergy immunology after discharge ? Vasculitis workup pending ? Neurology consulted. Will await recommendations ? Continue Diflucan at this time. Complete total 7-day course. ? Continue to work with physical therapy. 10/28/2024 -Appreciate neurology consultation. ? Patient has completed IV thiamine 503 times a day x 48 hours. Will start 250 IV daily starting tomorrow for 5 days. ? Vitamin D level low. Will place on 5000 units daily. Vitamin B12 647. ? Consult dietitian for PPN support. ? Have discussed with the patient regarding supplemental drinks as well. ? Continue Diflucan. Stop date October 31. Total 7 days ? Continue to work with physical therapy. ? Patient will need referral to tertiary care for workup and management of mastocytosis. ? Neuro follow-up at discharge for management of migraines. ? Refeeding syndrome: Continue to replete electrolytes. 10/29/2024 -Continue IV thiamine daily to 50 mg x 5 days ? Continue vitamin D, continue PPN support. Will consider stopping PPN tomorrow as intake orally improves ? Continue Diflucan. Stop date October 31. ? Continue to work with physical therapy ?? Patient will need referral to tertiary care for workup and management of mastocytosis. ? Neuro follow-up at discharge for management of migraines. ? Refeeding syndrome: Continue to replete electrolytes. Attestations 2 Medical Necessity Statement*: requires inpatient hospitalizatoin for wernickes requiring IV thiamine Diagnoses Dehydration E86.0 Cyclical vomiting R11.15 Abnormal liver enzymes R74.8 Hypokalemia E87.6 Ketosis E88.89 Esophagitis K20.90 Thrush, oral B37.0 Stomatitis K12.1
--- NOTE | 2024-10-29 13:19 | PC.OT ---
Pt was found sleeping and OT will be on hold at this time to let her rest. OT services will continue as outlined at a later time.
[2024-10-29 14:22] LABS: Glucose Point of Care 100 mg/dL (70-110)
[2024-10-29] MEDS: fluconazole premix 100 MG in empty flexible container 1 EACH 50 MG IV (17:00)
--- NOTE | 2024-10-29 18:34 | PC.NURSE ---
Pt has syncopal episode while sitting up. BP noted to be 51/48. Placed back into bed in [place]. BP increases to 110/68. Notified Dr. Fortune. 1L bolus of NS given.
[2024-10-29] MEDS: enoxaparin 40 mg/0.4 mL Syringe SUBCUT (23:44)
[2024-10-29] MEDS: AA-Dex 4.25%-5% w/Lytes 1,000 ML with multivitamin inj 10 ML 83 ML IV (23:44)
[2024-10-30] VITALS: BP 112/75; BP 114/88; BP 128/88; PULSE 69; PULSE 79; PULSE 95; PULSE 96; RESP 17; TEMP 36.8; O2SAT 96
[2024-10-30 04:00] VITALS: BP 103/72; PULSE 87; RESP 17; TEMP 36.6; O2SAT 97
[2024-10-30 05:18] LABS: Basophils % 0.6 %; Eosinophils # 0.2 10^3/uL (0.0-0.8); Hematocrit 32.4 % (36-47); Lymphocytes # 1.2 10^3/uL (0.8-4.8); Lymphocytes % 25.6 %; Mean Corpuscular HGB Conc 34.9 g/dL (30-55); Mean Corpuscular Hemoglobin 31.6 pg (27-33); Mean Corpuscular Volume 90.5 fl (85-98); Mean Platelet Volume 10.8 fL (7.4-10.4); Monocytes # 0.6 10^3/uL (0.2-0.9); Monocytes % 12.1 %; Neutrophils # 2.64 10^3/uL (1.8-7.7); Nucleated Red Blood Cells % 0.4 %; Platelet Count 145 10^3/cmm (157-399); Red Blood Count 3.58 10^6/uL (3.85-5.65); Red Cell Distribution Width 12.2 % (12.1-15.1)
[2024-10-30 05:36] LABS: Blood Urea Nitrogen 7 mg/dL (6-20); Carbon Dioxide 24 mmol/L (22-29); Chloride 110 mmol/L (98-107); Glomerular Filtration Rate 182.7 mL/min (90-130); Glucose 108 mg/dL (65-115); Magnesium 2.2 mg/dL (1.7-2.3); Osmolality Calculated 293 mOsm/kg (285-295); Sodium 142 mmol/L (136-145)
[2024-10-30 08:00] VITALS: BP 102/69; PULSE 82; RESP 15; TEMP 36.7; O2SAT 94
[2024-10-30 08:32] VITALS: PULSE 80; RESP 16; O2SAT 96
--- NOTE | 2024-10-30 09:51 | PC.NURSE ---
IV to r ac infiltrated. Unable to administer medications in other IV, due to PPN running. Notified Dr. Fortune. Orders for Midline given. Notified Mee, monorail charger operator nurse.
[2024-10-30] MEDS: AA-Dex 4.25%-5% w/Lytes 1,000 ML with multivitamin inj 10 ML 83 ML IV ×2 (10:35→22:33)
[2024-10-30 12:00] VITALS: BP 95/67; PULSE 81; RESP 14; TEMP 36.9; O2SAT 96
--- NOTE | 2024-10-30 13:19 | PC.NURSE ---
Pt mother requesting information. Mother is not on the PHI and and pt do not give mother permission to have information. Mother yells down the hallway throwing arms up. When this nurse assesses pt later, mother is in the room continuing to ask questions. This RN does not give any information. Pt tells her mom that there is nothing new to worry about. Mother appears to be hovering over pt, speaking loudly, and going through belongings. Pt is visibly distressed with mother's presence as evidence by holding head, shaking head, short responses and pursed lips. states that if the situation appears to be more stressful, mother may be made to leave. Charge nurse, Mee MCNULTY, aware of the situation.
--- NOTE | 2024-10-30 13:26 | PC.NURSE ---
Continuing to wait for PICC placement. wood room supervisor, Katelyn, notified of need multiple times. Other medications cannot be administered because of having no access with multiple attempts.
--- NOTE | 2024-10-30 14:28 | P.PN_ITS ---
Subjective 2 Subjective: I have been discussing her care with Dr. Fortune each day. I have been following her progress. She has a low level positive DAYDAY consistent with low-level inflammation such as fibromyalgia. Her liver enzymes have come down to normal. She is still unable to eat more than a trivial amount. Her lunch tray demonstrates that she ate 10% of her meal at most. She is on PPN. Her laboratory exam has been consistent with thrombocytopenia and pancytopenia. Liver enzymes were mildly elevated on arrival. Hepatitis panel negative except for surface antibody positive consistent with immunity. Random cortisol normal. Vitamin B12 normal 597, vitamin D low at 16. Thiamine pending. Albumin was 2.9 on 10/26 not retested. She denies headache but has severe photophobia such that she has been moving lights dimmed and curtains closed. Vitals/I&O/Wt Last Vital Signs Temp 98.4 F 10/30/24 12:00 Pulse 81 10/30/24 12:00 Resp 14 10/30/24 12:00 BP 95/67 10/30/24 12:00 Pulse Ox 96 10/30/24 12:00 O2 Del Method Room Air 10/30/24 12:00 10/29/24 10/30/24 10/30/24 22:59 06:59 14:59 Intake Total 748.383 / 0178.007 1240.55 / 1230.55 Output Total 900 / 900 700 / 1600 Balance -151.617 / 382.500 -700 / -764.715 7654.55 / 1230.55 Weight last 48 hrs Weight 167 lb 3.2 oz Weight 159 lb 9.6 oz Physical Exam 2 Narrative: GENERAL: The patient was thin, supine in the hospital bed, squinting with alternate eyes. MENTAL STATUS: She is quiet and cognitively appears intact. CRANIAL NERVES: Vision was not tested. 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 Facial movements symmetric. Tongue and palate midline without dysarthria. MOTOR: She could lift both arms without drift. Heel knee mckeon and toe to finger wthout ataxia. SENSATION: Touch was intact in the four extremities distally. COORDINATION: she did not feel comfortable to stand up but she could sit at the bedside without losing her balance or her pulse DEEP TENDON REFLEXES: 2 plus throughout. She was much more relaxed today. GAIT: Not tested. CARDIOVASCULAR: The heart sounds were normal without murmur or gallop. Regular rate and rhythm. EXTREMITIES: She has a chronic deformity of the proximal right arm and short right index Urinary Catheter Management: Sandra: Cath Placed During This Visit: yes, but has since been removed by the nurse Reason for Continuing Indwelling Catheter: Decision to DC Catheter Urinary Catheter Date of Insertion: 10/24/24 Urinary Catheter Time of Insertion: 23:48 Date Urinary Catheter Removed: 10/25/24 Time Urinary Catheter Discontinued: 13:03 Data 10/30/24 04:43 10/30/24 04:43 Micro: Microbiology 10/24/24 19:57 Blood Culture - Final Blood NO GROWTH AFTER 5 DAYS 10/24/24 19:53 Blood Culture - Final Blood NO GROWTH AFTER 5 DAYS A&P Assessment and plan (1) Wernicke's encephalopathy with cerebellar manifestation: Neurologically she appears stable or slightly improved. She is not able to eat, walk, or go home. Consider transfer to neurorehab with combined services with allergy/rheumatology for further workup of what appears to be systemic mastocytosis. I would consider treating her with Depacon for her status migrainosus. She had transient elevation of liver enzymes when she arrived I think it was her malnutrition. Her liver enzymes have improved. Consider PEG tube because she is not eating enough to keep her alive. I described the procedure in detail to the patient, her , her mother and brother. (2) Chronic migraine without aura, intractable, with status migrainosus: she is photophobic and in discomfort. no oral prophylactic medication would be tolerated. IV Depacon would be a consideration. 500 mg twice a day. I did not discuss that with the patient but oral medications are pretty much contraindicated by her conviction that she has alpha gal Attestations 2 Medical Necessity Statement*: She is hypotensive on standing and cannot walk. she is unable to tolerate food. Time Spent in Patient Care: Greater than 35 minutes Coding Level of Care Code Acute Code for [facility] F[facility] Diagnoses Wernicke's encephalopathy with cerebellar manifestation E51.2 Chronic migraine without aura, intractable, with status migrainosus G43.711
--- NOTE | 2024-10-30 15:00 | XRR_ITS ---
PROCEDURE INFORMATION: Exam: XR Chest Exam date and time: 10/30/2024 3:53 PM Age: 34 years old Clinical indication: Post picc insertion, TECHNIQUE: Imaging protocol: Radiologic exam of the chest. Views: 1 view. COMPARISON: CR (CHEST, ) 10/24/2024 8:09 PM FINDINGS: Tubes, catheters and devices: Distal PICC line tip projects over the cavoatrial junction. Lungs: Unremarkable. No consolidation. Pleural spaces: Unremarkable. No pleural effusion. No pneumothorax. Heart/Mediastinum: Unremarkable. No cardiomegaly. Bones/joints: Unremarkable. XR/XR chest 1V portable [id number] IMPRESSION: Distal PICC line tip projects over the cavoatrial junction.
--- NOTE | 2024-10-30 15:15 | P.PN_ITS ---
Subjective 2 Subjective: Seen this morning. Laying in bed. Family at bedside. Orthostatic vitals are positive. She had a syncopal episode yesterday after getting up trying to take a shower. Nursing staff present. Patient did have some flushing. Vitals/I&O/Wt Last Vital Signs Temp 98.4 F 10/30/24 12:00 Pulse 81 10/30/24 12:00 Resp 14 10/30/24 12:00 BP 95/67 10/30/24 12:00 Pulse Ox 96 10/30/24 12:00 O2 Del Method Room Air 10/30/24 12:00 10/30/24 10/30/24 10/30/24 06:59 14:59 22:59 Intake Total 1230.55 / 1230.55 Output Total 700 / 1600 Balance -700 / -819.315 4063.55 / 1230.55 Weight last 48 hrs Weight 75.841 kg Weight 72.393 kg Physical Exam 2 Narrative: General: No acute distress, AO x3 HEENT: PERRLA, severe thrush affecting her tongue, mild improvement Chest: Normal vesicular breath sounds, no added sounds, equal good air entry bilaterally CVS: S1-S2 regular, no murmurs, no tachycardia, no gallops, no rubs Abdomen: Soft, nontender, no organomegaly, bowel sounds present Neuro: able to move all 4 extremities, 6th nerve palsy present, no other focal deficits, strength improved compared to before. Pupils reactive however slightly dilated. Urinary Catheter Management: Sandra: Cath Placed During This Visit: yes, but has since been removed by the nurse Reason for Continuing Indwelling Catheter: Decision to DC Catheter Urinary Catheter Date of Insertion: 10/24/24 Urinary Catheter Time of Insertion: 23:48 Date Urinary Catheter Removed: 10/25/24 Time Urinary Catheter Discontinued: 13:03 Data 10/30/24 04:43 10/30/24 04:43 Micro: Microbiology 10/24/24 19:57 Blood Culture - Final Blood NO GROWTH AFTER 5 DAYS 10/24/24 19:53 Blood Culture - Final Blood NO GROWTH AFTER 5 DAYS A&P Assessment and plan (1) Dehydration: (2) Cyclical vomiting: (3) Abnormal liver enzymes: (4) Hypokalemia: (5) Ketosis: (6) Esophagitis: (7) Thrush, oral: (8) Stomatitis: Plan Cyclical vomiting Does not smoke or drink alcohol, no use of marijuana Alpha gal deficiency She is currently being worked up at [facility] for mastocytosis EGD done October 14 which showed acute esophagitis without fungal infection in esophagus mucosa however she does have oral thrush for which I will give her nystatin, has the [facility] online portal report For concern related to gallbladder sludge General Surgery has been consulted I will keep her on Zosyn until then Start IV fluids Request dietitian to start PPN in the morning patient has not eaten in multiple weeks high risk for refeeding syndrome keep her on interior decorator paperhanging electrolytes including potassium magnesium and phosphorus Sandra catheter placed for urinary retention Requested autoimmune workup for abnormal liver enzymes Patient is not diabetic hemoglobin A1c 5.4 I will keep her on GI soft diet DVT prophylaxis Lovenox Plan for today: 10/25/2024. Patient noted to have severe thrush. 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 Reviewed her biopsy results from which she has been healed. Esophagitis and gastritis was noted with mast cell deposition. Per review of the report it appears that they have planned to start patient on antihistamines, but she has not yet received any prescription for the same. She has only been recommended to take Protonix thus far. Fungal stains were negative. Unable to see any results of viral cytopathic changes. Unable to find results of H. pylori testing. Check HIV 1 2 antigen antibody screen. Concern for underlying immunocompromising condition given severity of her symptoms. Possibly autoimmune disorder. Noted to have deranged LFTs, patient states this has chronically been noted over the past 2 to 3 months, possibly may have autoimmune hepatitis. DAYDAY panel was ordered last evening, results not expected to be back until about 24 hours. Gallbladder sludge on US. non specific wall thickening. Less likely to be cholecystitis as no right upper quadrant tenderness .Chronicity of symptoms. Discontinue piperacillin/tazobactam. For now we will continue IV hydration. She appears to be much better hydrated today. BMI is 27.K is 3.3 Continue nystatin swish and swallow. May physically have an invasive pharyngitis. She reports severe weakness to the point of not being able to move her lower extremities. Not being able to walk to the bathroom. PT/OT assessment ordered. reports beingvery stressed recently due to family dynamics and her childrens' illness. 10/26/2024 -Chart reviewed, patient interviewed. Agree with assessment and plan so far. ? Patient was seen by physical therapy and home exercise program has been recommended ? She was also seen by Occupational Therapy. ? Patient does report double vision and symptoms have been persistent for the last 12 days. Also has left-sided weakness. Difficult to do a neurological exam however unable to fully look right upper quarter. Right eye stained midline. Does have to cover 1 eye to see clearly. ? Has been reporting the symptoms for the last 12 days. ? Check MRI brain to rule out a potential stroke? Discussed with radiology. Will check with and without contrast study. ? Vasculitis workup is pending. ? Patient has been quite stressed recently due to family dynamics and issues with dialysis. ? Will plan for potential discharge in a.m. as long as patient remains stable. ? She may need neurology follow-up outpatient versus inpatient consult prior to discharge pending clinical course. ? Will stop normal saline. Patient developing hyperchloremic metabolic acidosis. ? Continue Diflucan. 10/27/2024 - MRI brain shows: 1. Above-described findings suspicious for Wernicke's encephalopathy in the appropriate clinical setting. Recommend correlation with clinical history. 2. Moderate cerebellar atrophy advanced for patient this age nonspecific but can be seen with alcoholic encephalopathy and chronic phenytoin use or seizures - - Neurology consulted ? Continues to complain of diplopia. This is most likely secondary to Warnicke's. ? Order high-dose IV thiamine 500 mg 3 times daily x 48 hours then transition to 250 mg IM or IV daily for another 5 days ? Check vitamin B12 level, vitamin D ? Patient being worked up for mastocytosis at [facility]. She will need to follow-up with allergy immunology after discharge ? Vasculitis workup pending ? Neurology consulted. Will await recommendations ? Continue Diflucan at this time. Complete total 7-day course. ? Continue to work with physical therapy. 10/28/2024 -Appreciate neurology consultation. ? Patient has completed IV thiamine 503 times a day x 48 hours. Will start 250 IV daily starting tomorrow for 5 days. ? Vitamin D level low. Will place on 5000 units daily. Vitamin B12 647. ? Consult dietitian for PPN support. ? Have discussed with the patient regarding supplemental drinks as well. ? Continue Diflucan. Stop date October 31. Total 7 days ? Continue to work with physical therapy. ? Patient will need referral to tertiary care for workup and management of mastocytosis. ? Neuro follow-up at discharge for management of migraines. ? Refeeding syndrome: Continue to replete electrolytes. 10/29/2024 -Continue IV thiamine daily to 50 mg x 5 days ? Continue vitamin D, continue PPN support. Will consider stopping PPN tomorrow as intake orally improves ? Continue Diflucan. Stop date October 31. ? Continue to work with physical therapy ?? Patient will need referral to tertiary care for workup and management of mastocytosis. ? Neuro follow-up at discharge for management of migraines. ? Refeeding syndrome: Continue to replete electrolytes. 10/30/2024 -Continue IV thiamine daily 250 mg x 5 days ? Continue vitamin D, continue PPN support. Continue PPN at this time. Patient's oral intake is not enough to sustain life. ? Continue Diflucan. Stop date October 31. I will add micafungin today. Will stop Diflucan. ? Continue to work with physical therapy ? Orthostatic hypotension. ?? Patient will need referral to tertiary care for workup and management of mastocytosis. ? Neuro follow-up at discharge for management of migraines. ? Refeeding syndrome: Continue to replete electrolytes. ? Discussed with Dr. Pearce in detail. -Going forward patient may need a PEG tube and inpatient rehab services. ? Will discuss with [facility] for potential transfer for higher level of care for further diagnostic workup. ? 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 ? Continue on LR 125 cc/h. Attestations 2 Medical Necessity Statement*: requires inpatient hospitalizatoin for wernickes requiring IV thiamine and PPN. Diagnoses Dehydration E86.0 Cyclical vomiting R11.15 Abnormal liver enzymes R74.8 Hypokalemia E87.6 Ketosis E88.89 Esophagitis K20.90 Thrush, oral B37.0 Stomatitis K12.1
--- NOTE | 2024-10-30 15:37 | PC.NURSE ---
Pt has PICC placed at this time. After all family leaves the room, this RN asks pt if she feels safe with -she states she is. She states that she does not want her mom to know anything and her mother makes her stressed. This RN and pt created a code-phrase of I am tired. When this phrase is said, this means that she wants her mother to leave. Pt verbalizes that she is grateful for this code.
[2024-10-30] MEDS: micafungin 100 MG in sodium chloride 0.9% (plus) 100 ML IV ×2 (16:51→17:00)
[2024-10-30] MEDS: thiamine 250 MG in sodium chloride 0.9% (100 ml) 100 ML 210 MG IV (16:52)
[2024-10-30] MEDS: pantoprazole 40 mg SDV IVP (16:52)
[2024-10-30] MEDS: lactated ringers 1,000 ML 125 ML IV (16:52)
[2024-10-30] MEDS: folic acid 1 mg Tablet PO (16:53)
--- NOTE | 2024-10-30 17:25 | PICC.NOTE ---
Triple lumen PICC placed to right basilic vein. Referred to vascular access nurse for PICC placement due to poor access and need for TPN. Risks and benefits discussed and informed consent obtained from patient. Right arm assessed with right basilic vein measuring 5.2 mm, straight, and apparent best choice for placement. Using sterile technique and MST, right basilic vein accessed x 1 stick. Mid-arm circumference measured 10 cm from right AC 28 cm. Trimmed cath 40 cm with 2 cm external length noted. CXR shows tip to appear to be in distal SVC, awaiting radiologist to read. Line secured with stat-lock. Insertion site covered with Biopatch and TSM. Report given to bedside nurse, PRICILA Valentino.
--- NOTE | 2024-10-30 17:47 | PC.NURSE ---
Pt uses code-phrase to have mother leave. Pt mother leaves without any issues at this time.
--- NOTE | 2024-10-30 18:33 | W.PM.EVENTAC ---
Event Note Event Note: Discussed in detail with infectious disease, neurology. Patient cannot tolerate oral intake. Has been eating as little as 25%. Continues to have ophthalmoplegia, ataxia and is starting to have syncopal episodes with facial flushing followed by complete paleness. She is orthostatic positive. She has been placed on IV fluids. 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 She is on high-dose thiamine at this time. Discussed in detail with neurology service and medicine service at [facility]. Patient definitely needs academic tertiary level care center for further diagnostic workup and management at this time. She cannot be discharged home safely given her current condition being so deconditioned and not tolerating oral. We will continue micafungin at this time. [facility] did state that there may be a few days wait which we are aware of. In the meantime we will provide supportive care to the patient. Family aware that patient needs a formal diagnosis and thereby appropriate follow-up after discharge. Patient has been accepted by Dr. Blake medicine hospitalist at [facility] for further care. Should there be any change in her clinical status [facility] will need to be notified. Nursing staff updated. Family updated. I believe it is in the patient's best interest to be transferred for purposes of establishing a diagnosis and further workup. Once a bed becomes available transfer summary will need to be completed at the time.
--- NOTE | 2024-10-30 18:39 | PC.NURSE ---
[facility] called and stated that medicine will accept the patient but the wait maybe 3 to 4 days. Family notified
[2024-10-30 18:54] LABS: Lactic Sepsis W/Reflex 0.9 mmol/L (0.5-2.2)
[2024-10-30 19:50] LABS: Vitamin B1 (Thiamine),Blood 730 nmol/L (78-185)
[2024-10-30 20:00] VITALS: BP 105/72; PULSE 69; RESP 16; TEMP 36.4; O2SAT 99
[2024-10-31] VITALS (7 sets, daily range): BP systolic 100–123; BP diastolic 64–81; PULSE 73–100; RESP 13–19; TEMP 36.6–37.1; O2SAT 96–99
[2024-10-31] MEDS: enoxaparin 40 mg/0.4 mL Syringe SUBCUT (00:20)
[2024-10-31] MEDS: lactated ringers 1,000 ML 125 ML IV ×2 (00:47→08:42)
--- NOTE | 2024-10-31 01:11 | PC.NURSE ---
Received call from [facility] transfer center for infusion and v/s updates. Information given. Pt remains on waitlist with [facility].
[2024-10-31 08:15] LABS: Basophils % 0.4 %; Eosinophils # 0.2 10^3/uL (0.0-0.8); Eosinophils % 4.1 %; Hematocrit 30.3 % (36-47); Lymphocytes # 0.9 10^3/uL (0.8-4.8); Lymphocytes % 19.8 %; Mean Corpuscular Hemoglobin 31.4 pg (27-33); Mean Corpuscular Volume 92.4 fl (85-98); Monocytes # 0.5 10^3/uL (0.2-0.9); Monocytes % 11.4 %; Neutrophils # 2.94 10^3/uL (1.8-7.7); Neutrophils % 63.4 %; Nucleated Red Blood Cells % 0 %; Platelet Count 146 10^3/cmm (157-399); Red Blood Count 3.28 10^6/uL (3.85-5.65); Red Cell Distribution Width 12.5 % (12.1-15.1); White Blood Count 4.64 10^3/uL (3.29-11.43)
[2024-10-31 08:32] LABS: Anion Gap 14.2 (5-19); Blood Urea Nitrogen 7 mg/dL (6-20); Calcium 9.4 mg/dL (8.5-10.5); Carbon Dioxide 24 mmol/L (22-29); Chloride 108 mmol/L (98-107); Creatinine Clr Calc Pharmacy 264.5036; Glomerular Filtration Rate 254.7 mL/min (90-130); Glucose 105 mg/dL (65-115); Magnesium 2.3 mg/dL (1.7-2.3); Osmolality Calculated 292 mOsm/kg (285-295); Potassium 4.2 mmol/L (3.5-5.1); Sodium 142 mmol/L (136-145)
[2024-10-31] MEDS: folic acid 1 mg Tablet PO (08:42)
[2024-10-31] MEDS: pantoprazole 40 mg SDV IVP ×2 (08:42→17:15)
[2024-10-31] MEDS: AA-Dex 4.25%-5% w/Lytes 1,000 ML with multivitamin inj 10 ML 83 ML IV ×2 (09:10→21:22)
--- NOTE | 2024-10-31 15:57 | PC.NURSE ---
Thiamine not administered due to levels being 730. Waiting on doctor to confirm administration.
--- NOTE | 2024-10-31 16:19 | PC.NURSE ---
Megan miller noted to urine. Pharmacy, [facility], states that this may be due to PPN/TPN administration.
--- NOTE | 2024-10-31 16:59 | P.PN_ITS ---
Subjective 2 Subjective: Patient has had LR at 125cc/hr around 4pm on 10/31/2024 due to orthostatic hypotension. The patient complains that she is feeling puffy today. Will hold LR. [facility] notified the nursing staff that it may be another 2 days before a bed is available. The patient continues to endorse diplopia Patient's nurse is concerned that the patient's urine has a metallic sheen. I noticed the patient's yellow colored urine. I did not note a metallic sheen. Please note that the Patient's mother is unable to receive information about the patient. Medications: Reviewed: Yes Vitals/I&O/Wt Last Vital Signs Temp 98.7 F 10/31/24 16:00 Pulse 73 10/31/24 16:00 Resp 15 10/31/24 16:00 BP 100/66 10/31/24 16:00 Pulse Ox 96 10/31/24 16:00 O2 Del Method Room Air 10/31/24 16:00 10/31/24 10/31/24 10/31/24 06:59 14:59 22:59 Intake Total 989.583 / 3515.866 2145.766 / 2145.766 Output Total 900 / 900 2300 / 2300 Balance 89.583 / 2615.866 -154.234 / -154.234 Weight last 48 hrs Weight 76.476 kg Weight 75.841 kg Physical Exam 2 Const: GENERAL APPEARANCE: cooperative and comfortable O RIENTATION/CONSCIOUSNESS: Yes awake, Yes oriented to person, Yes oriented to place and Yes oriented to time HENMT: COMMON NORMALS: normocephalic, atraumatic, external ears normal and Normal external nose present HEAD & SCALP: normocephalic and atraumatic N OSE: Normal external nose present EXTERNAL EAR: Yes external ears normal M OUTH: Normal oral and palatal mucosa present THROAT: posterior oropharynx normal Eye: COMMON NORMALS: Equal, round and reactive pupils present and conjunctivae normal CONJUNCTIVA: Yes conjunctivae normal PUPIL: Yes Equal, round and reactive pupils present EOM: No EOM abnormal OTHER: The patient has R. horizontal nystagmaus w/ a torsional component to the R. Neck/C-Spine: OTHER: Lymph: OTHER: No cervical or supraclavicular LAD Chest: OTHER: CTAB, no w/r/r Cardio: OTHER: RRR, no m/r/g GI: OTHER: BS+, NT, ND, no rigidity, no guarding, nor rebound tenderness or hepatosplenomegaly Extremity: GENERAL: No clubbing, No cyanosis and No edema Neuro: SENSORIUM/ORIENTATION: Yes oriented to person, Yes oriented to place and Yes oriented to time Psych: COMMON NORMALS: Normal thought process present and speech normal A PPEARANCE: Yes grossly normal ATTITUDE: Yes calm and Yes engaged A CTIVITY/MOTOR BEHAVIOR: Yes appropriate eye contact SPEECH: Yes normal speech MOOD & AFFECT: Yes euthymic mood THOUGHT PROCESS: Normal thought process present THOUGHT CONTENT: Yes Normal thought content present A TTENTION/CONCENTRATION: Yes attention grossly intact MEMORY/COGNITION: Yes memory grossly intact Skin: COMMON NORMALS: no rashes or lesions noted GENERAL SKIN EXAM: no rashes or lesions noted Urinary Catheter Management: Sandra: Cath Placed During This Visit: yes, but has since been removed by the nurse Reason for Continuing Indwelling Catheter: Decision to DC Catheter Urinary Catheter Date of Insertion: 10/24/24 Urinary Catheter Time of Insertion: 23:48 Date Urinary Catheter Removed: 10/25/24 Time Urinary Catheter Discontinued: 13:03 Data 10/31/24 07:56 10/31/24 07:56 Micro: Microbiology 10/30/24 18:30 Blood Culture - Preliminary Blood SPECIMEN COLLECTED 10/30/24 18:30 Blood Culture - Preliminary Blood SPECIMEN COLLECTED A&P Assessment and plan (1) Dehydration: (2) Cyclical vomiting: (3) Abnormal liver enzymes: (4) Hypokalemia: (5) Ketosis: (6) Esophagitis: (7) Thrush, oral: (8) Stomatitis: Plan Cyclical vomiting Does not smoke or drink alcohol, no use of marijuana Alpha gal deficiency She is currently being worked up at [facility] for mastocytosis EGD done October 14 which showed acute esophagitis without fungal infection in esophagus mucosa however she does have oral thrush for which I will give her nystatin, has the [facility] online portal report For concern related to gallbladder sludge General Surgery has been consulted I will keep her on Zosyn until then Start IV fluids Request dietitian to start PPN in the morning patient has not eaten in multiple weeks high risk for refeeding syndrome keep her on night monitor electrolytes including potassium magnesium and phosphorus Sandra catheter placed for urinary retention Requested autoimmune workup for abnormal liver enzymes Patient is not diabetic hemoglobin A1c 5.4 I will keep her on GI soft diet DVT prophylaxis Lovenox Plan for today: 10/25/2024. Patient noted to have severe thrush. 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 Reviewed her biopsy results from which she has been healed. Esophagitis and gastritis was noted with mast cell deposition. Per review of the report it appears that they have planned to start patient on antihistamines, but she has not yet received any prescription for the same. She has only been recommended to take Protonix thus far. Fungal stains were negative. Unable to see any results of viral cytopathic changes. Unable to find results of H. pylori testing. Check HIV 1 2 antigen antibody screen. Concern for underlying immunocompromising condition given severity of her symptoms. Possibly autoimmune disorder. Noted to have deranged LFTs, patient states this has chronically been noted over the past 2 to 3 months, possibly may have autoimmune hepatitis. DAYDAY panel was ordered last evening, results not expected to be back until about 24 hours. Gallbladder sludge on US. non specific wall thickening. Less likely to be cholecystitis as no right upper quadrant tenderness .Chronicity of symptoms. Discontinue piperacillin/tazobactam. For now we will continue IV hydration. She appears to be much better hydrated today. BMI is 27.K is 3.3 Continue nystatin swish and swallow. May physically have an invasive pharyngitis. She reports severe weakness to the point of not being able to move her lower extremities. Not being able to walk to the bathroom. PT/OT assessment ordered. reports beingvery stressed recently due to family dynamics and her childrens' illness. 10/26/2024 -Chart reviewed, patient interviewed. Agree with assessment and plan so far. ? Patient was seen by physical therapy and home exercise program has been recommended ? She was also seen by Occupational Therapy. ? Patient does report double vision and symptoms have been persistent for the last 12 days. Also has left-sided weakness. Difficult to do a neurological exam however unable to fully look right upper quarter. Right eye stained midline. Does have to cover 1 eye to see clearly. ? Has been reporting the symptoms for the last 12 days. ? Check MRI brain to rule out a potential stroke? Discussed with radiology. Will check with and without contrast study. ? Vasculitis workup is pending. ? Patient has been quite stressed recently due to family dynamics and issues with dialysis. ? Will plan for potential discharge in a.m. as long as patient remains stable. ? She may need neurology follow-up outpatient versus inpatient consult prior to discharge pending clinical course. ? Will stop normal saline. Patient developing hyperchloremic metabolic acidosis. ? Continue Diflucan. 10/27/2024 - MRI brain shows: 1. Above-described findings suspicious for Wernicke's encephalopathy in the appropriate clinical setting. Recommend correlation with clinical history. 2. Moderate cerebellar atrophy advanced for patient this age nonspecific but can be seen with alcoholic encephalopathy and chronic phenytoin use or seizures - - Neurology consulted ? Continues to complain of diplopia. This is most likely secondary to Warnicke's. ? Order high-dose IV thiamine 500 mg 3 times daily x 48 hours then transition to 250 mg IM or IV daily for another 5 days ? Check vitamin B12 level, vitamin D ? Patient being worked up for mastocytosis at [facility]. She will need to follow-up with allergy immunology after discharge ? Vasculitis workup pending ? Neurology consulted. Will await recommendations ? Continue Diflucan at this time. Complete total 7-day course. ? Continue to work with physical therapy. 10/28/2024 -Appreciate neurology consultation. ? Patient has completed IV thiamine 503 times a day x 48 hours. Will start 250 IV daily starting tomorrow for 5 days. ? Vitamin D level low. Will place on 5000 units daily. Vitamin B12 647. ? Consult dietitian for PPN support. ? Have discussed with the patient regarding supplemental drinks as well. ? Continue Diflucan. Stop date October 31. Total 7 days ? Continue to work with physical therapy. ? Patient will need referral to tertiary care for workup and management of mastocytosis. ? Neuro follow-up at discharge for management of migraines. ? Refeeding syndrome: Continue to replete electrolytes. 10/29/2024 -Continue IV thiamine daily to 50 mg x 5 days ? Continue vitamin D, continue PPN support. Will consider stopping PPN tomorrow as intake orally improves ? Continue Diflucan. Stop date October 31. ? Continue to work with physical therapy ?? Patient will need referral to tertiary care for workup and management of mastocytosis. ? Neuro follow-up at discharge for management of migraines. ? Refeeding syndrome: Continue to replete electrolytes. 10/30/2024 -Continue IV thiamine daily 250 mg x 5 days ? Continue vitamin D, continue PPN support. Continue PPN at this time. Patient's oral intake is not enough to sustain life. ? Continue Diflucan. Stop date October 31. I will add micafungin today. Will stop Diflucan. ? Continue to work with physical therapy ? Orthostatic hypotension. ?? Patient will need referral to tertiary care for workup and management of mastocytosis. ? Neuro follow-up at discharge for management of migraines. ? Refeeding syndrome: Continue to replete electrolytes. ? Discussed with Dr. Pearce in detail. -Going forward patient may need a PEG tube and inpatient rehab services. ? Will discuss with [facility] for potential transfer for higher level of care for further diagnostic workup. ? 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 ? Continue on LR 125 cc/h. 10/31/2024 -Held LR. -Per discussion w/ the patient and her on 10/31, please consult director data analytics to decrease PPN to allow patient to attempt more solid foods. Encouraged the patient to take supplements such as Ensure, if she is unable to tolerate much meals. Please note that the Patient's mother is unable to receive information about the patient. Dispo: Pending transfer to [facility] Attestations 2 Medical Necessity Statement*: Patient remains hospitalized, is on PPN, and is pending transfer to [facility]. Coding Level of Care Code 09672 Diagnoses Dehydration E86.0 Cyclical vomiting R11.15 Abnormal liver enzymes R74.8 Hypokalemia E87.6 Ketosis E88.89 Esophagitis K20.90 Thrush, oral B37.0 Stomatitis K12.1
[2024-10-31] MEDS: thiamine 250 MG in sodium chloride 0.9% (100 ml) 100 ML 210 MG IV (17:15)
[2024-10-31] MEDS: micafungin 100 MG in sodium chloride 0.9% (plus) 100 ML IV (17:16)
[2024-11-01] VITALS (9 sets, daily range): BP systolic 94–108; BP diastolic 69–74; PULSE 76–95; RESP 14–18; TEMP 36.6–37; O2SAT 94–97
[2024-11-01] MEDS: enoxaparin 40 mg/0.4 mL Syringe SUBCUT ×2 (00:57→23:13)
[2024-11-01] MEDS: pantoprazole 40 mg SDV IVP ×2 (09:05→17:58)
[2024-11-01] MEDS: folic acid 1 mg Tablet PO (09:06)
[2024-11-01] MEDS: thiamine 250 MG in sodium chloride 0.9% (100 ml) 100 ML 210 MG IV (09:07)
[2024-11-01] MEDS: AA-Dex 4.25%-5% w/Lytes 1,000 ML with multivitamin inj 10 ML 83 ML IV ×2 (09:27→21:13)
--- NOTE | 2024-11-01 16:50 | PC.NURSE ---
This nurse received a phone call from patients Dad, Irwin Ledesma. He stated I was just there earlier visiting my daughter. I am concerned her Dawit is poisoning her. There is something not right he wont keep any of us updated on her condition or answer any of our calls. He is not being honest with her and I think her is harming her. This nurse notified Dr. Niño of his concerns. She told this nurse if patients dad called again to instruct to contact PD. This nurse rounded with Dr. Niño on patient. Dr. Niño asked patient if she felt safe at this time. She also told patient that her family members are calling and are concerned her is poisoning her. Patient stated My is not harming me or poisoning me. My mom and dad are not involved in my life or even come around unless I am in the hospital. They keep bringing up issues that are not relevant to this stay. My dad came earlier and got so loud the nurse had to ask him to leave and it was so upsetting to me. My stomach is in knots. I cant even eat now. I want my family to come and visit me and know whats going on with me, but they keep causing issues. This nurse did tell patient that we can restrict visitors if she request it. That we are to care for her and do not want her to have any added stress. This nurse also told patient that she could pick a code word to use with staff that when she has visitors she can use that word with us and we can ask them to leave. Patient stated She did not want to restrict her visitors at this time, but will speak with her Dawit once her mom leaves to discuss using a word when she wants her visitors to leave. Patient is resting in bed at this time, her and mom was let back in her room. This nurse let Ashley her patient care nurse aware of the situation at this time.
--- NOTE | 2024-11-01 16:54 | P.PN_ITS ---
Subjective 2 Subjective: Still awaiting transfer to [place]. Medications: Reviewed: Yes Vitals/I&O/Wt Last Vital Signs Temp 98.0 F 11/01/24 15:37 Pulse 83 11/01/24 15:37 Resp 17 11/01/24 15:37 BP 101/69 11/01/24 15:37 Pulse Ox 95 11/01/24 15:37 O2 Del Method Room Air 11/01/24 15:37 11/01/24 11/01/24 11/01/24 06:59 14:59 22:59 Intake Total 0 / 4608.266 1002.917 / 1002.917 Output Total 1100 / 4550 500 / 500 Balance -1100 / 58.266 502.917 / 502.917 Weight last 48 hrs Weight 73.89 kg Weight 76.476 kg Physical Exam 2 Narrative: General: No acute distress, AO x3 HEENT: PERRLA, severe thrush affecting her tongue. Redness over soft palate. Chest: Normal vesicular breath sounds, no added sounds, equal good air entry bilaterally CVS: S1-S2 regular, no murmurs, no tachycardia, no gallops, no rubs Abdomen: Soft, nontender, no organomegaly, bowel sounds present Neuro: No focal motor deficits on exam Urinary Catheter Management: Sandra: Cath Placed During This Visit: yes, but has since been removed by the nurse Reason for Continuing Indwelling Catheter: Decision to DC Catheter Urinary Catheter Date of Insertion: 10/24/24 Urinary Catheter Time of Insertion: 23:48 Date Urinary Catheter Removed: 10/25/24 Time Urinary Catheter Discontinued: 13:03 Data 10/31/24 07:56 10/31/24 07:56 Micro: Microbiology 10/30/24 18:30 Blood Culture - Preliminary Blood NEGATIVE TO DATE 10/30/24 18:30 Blood Culture - Preliminary Blood NEGATIVE TO DATE A&P Assessment and plan (1) Dehydration: (2) Cyclical vomiting: (3) Abnormal liver enzymes: (4) Hypokalemia: (5) Ketosis: (6) Esophagitis: (7) Thrush, oral: (8) Stomatitis: Plan Cyclical vomiting Does not smoke or drink alcohol, no use of marijuana Alpha gal deficiency She is currently being worked up at [facility] for mastocytosis EGD done October 14 which showed acute esophagitis without fungal infection in esophagus mucosa however she does have oral thrush for which I will give her nystatin, has the [facility] portal report For concern related to gallbladder sludge General Surgery has been consulted I will keep her on Zosyn until then Start IV fluids Request dietitian to start PPN in the morning patient has not eaten in multiple weeks high risk for refeeding syndrome keep her on physician internist electrolytes including potassium magnesium and phosphorus Sandra catheter placed for urinary retention Requested autoimmune workup for abnormal liver enzymes Patient is not diabetic hemoglobin A1c 5.4 I will keep her on GI soft diet DVT prophylaxis Lovenox Plan for today: 10/25/2024. Patient noted to have severe thrush. 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 Reviewed her biopsy results from which she has been healed. Esophagitis and gastritis was noted with mast cell deposition. Per review of the report it appears that they have planned to start patient on antihistamines, but she has not yet received any prescription for the same. She has only been recommended to take Protonix thus far. Fungal stains were negative. Unable to see any results of viral cytopathic changes. Unable to find results of H. pylori testing. Check HIV 1 2 antigen antibody screen. Concern for underlying immunocompromising condition given severity of her symptoms. Possibly autoimmune disorder. Noted to have deranged LFTs, patient states this has chronically been noted over the past 2 to 3 months, possibly may have autoimmune hepatitis. DAYDAY panel was ordered last evening, results not expected to be back until about 24 hours. Gallbladder sludge on US. non specific wall thickening. Less likely to be cholecystitis as no right upper quadrant tenderness .Chronicity of symptoms. Discontinue piperacillin/tazobactam. For now we will continue IV hydration. She appears to be much better hydrated today. BMI is 27.K is 3.3 Continue nystatin swish and swallow. May physically have an invasive pharyngitis. She reports severe weakness to the point of not being able to move her lower extremities. Not being able to walk to the bathroom. PT/OT assessment ordered. reports beingvery stressed recently due to family dynamics and her childrens' illness. 10/26/2024 -Chart reviewed, patient interviewed. Agree with assessment and plan so far. ? Patient was seen by physical therapy and home exercise program has been recommended ? She was also seen by Occupational Therapy. ? Patient does report double vision and symptoms have been persistent for the last 12 days. Also has left-sided weakness. Difficult to do a neurological exam however unable to fully look right upper quarter. Right eye stained midline. Does have to cover 1 eye to see clearly. ? Has been reporting the symptoms for the last 12 days. ? Check MRI brain to rule out a potential stroke? Discussed with radiology. Will check with and without contrast study. ? Vasculitis workup is pending. ? Patient has been quite stressed recently due to family dynamics and issues with dialysis. ? Will plan for potential discharge in a.m. as long as patient remains stable. ? She may need neurology follow-up outpatient versus inpatient consult prior to discharge pending clinical course. ? Will stop normal saline. Patient developing hyperchloremic metabolic acidosis. ? Continue Diflucan. 10/27/2024 - MRI brain shows: 1. Above-described findings suspicious for Wernicke's encephalopathy in the appropriate clinical setting. Recommend correlation with clinical history. 2. Moderate cerebellar atrophy advanced for patient this age nonspecific but can be seen with alcoholic encephalopathy and chronic phenytoin use or seizures - - Neurology consulted ? Continues to complain of diplopia. This is most likely secondary to Warnicke's. ? Order high-dose IV thiamine 500 mg 3 times daily x 48 hours then transition to 250 mg IM or IV daily for another 5 days ? Check vitamin B12 level, vitamin D ? Patient being worked up for mastocytosis at [facility]. She will need to follow-up with allergy immunology after discharge ? Vasculitis workup pending ? Neurology consulted. Will await recommendations ? Continue Diflucan at this time. Complete total 7-day course. ? Continue to work with physical therapy. 10/28/2024 -Appreciate neurology consultation. ? Patient has completed IV thiamine 503 times a day x 48 hours. Will start 250 IV daily starting tomorrow for 5 days. ? Vitamin D level low. Will place on 5000 units daily. Vitamin B12 647. ? Consult dietitian for PPN support. ? Have discussed with the patient regarding supplemental drinks as well. ? Continue Diflucan. Stop date October 31. Total 7 days ? Continue to work with physical therapy. ? Patient will need referral to tertiary care for workup and management of mastocytosis. ? Neuro follow-up at discharge for management of migraines. ? Refeeding syndrome: Continue to replete electrolytes. 10/29/2024 -Continue IV thiamine daily to 50 mg x 5 days ? Continue vitamin D, continue PPN support. Will consider stopping PPN tomorrow as intake orally improves ? Continue Diflucan. Stop date October 31. ? Continue to work with physical therapy ?? Patient will need referral to tertiary care for workup and management of mastocytosis. ? Neuro follow-up at discharge for management of migraines. ? Refeeding syndrome: Continue to replete electrolytes. 10/30/2024 -Continue IV thiamine daily 250 mg x 5 days ? Continue vitamin D, continue PPN support. Continue PPN at this time. Patient's oral intake is not enough to sustain life. ? Continue Diflucan. Stop date October 31. I will add micafungin today. Will stop Diflucan. ? Continue to work with physical therapy ? Orthostatic hypotension. ?? Patient will need referral to tertiary care for workup and management of mastocytosis. ? Neuro follow-up at discharge for management of migraines. ? Refeeding syndrome: Continue to replete electrolytes. ? Discussed with Dr. Pearce in detail. -Going forward patient may need a PEG tube and inpatient rehab services. ? Will discuss with [facility] for potential transfer for higher level of care for further diagnostic workup. ? 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 ? Continue on LR 125 cc/h. 10/31/2024 -Held LR. -Per discussion w/ the patient and her on 10/31, please consult steel erector apprentice to decrease PPN to allow patient to attempt more solid foods. Encouraged the patient to take supplements such as Ensure, if she is unable to tolerate much meals. Please note that the Patient's mother is unable to receive information about the patient. 10/02/2024 Complains of tingling and numbness overall as if she has vibrations over her. Will check electrolytes including potassium calcium and magnesium. Stomatitis appears to be improving, as is thrush. There is noted to be clearing of the tip of her tongue now, coating is improving. He is able to have a more extended conversation, moving all extremities while laying in bed. However still reports photophobia and inability to focus. Still awaiting transfer to [facility]. Continue parenteral nutrition. Patient's father called the hospital today to report he suspects that patient is being poisoned in her home. We have discussed with the patient quite extensively in private in the presence of warehouse and receiving supervisor. She states that she feels completely safe with her . She states that their family dynamics are such that her parents do not get along with her and blame him for her illness. However she states she has absolutely no concerns for her safety with her . She does not think he is going to harm her in any way. He has been helping her get better since onset of her symptoms. She has no concerns for domestic abuse. It is requested that all updates be given to patient and her only and be disseminated to the family based on their discretion. Attestations 2 Medical Necessity Statement*: awaiting transfer to [facility] for diagnostic evaluation,needs multidisciplinary teams that we are unable to provide, continue PPN in the interim Coding Level of Care Code Acute Code for Chg Fwd Diagnoses Dehydration E86.0 Cyclical vomiting R11.15 Abnormal liver enzymes R74.8 Hypokalemia E87.6 Ketosis E88.89 Esophagitis K20.90 Thrush, oral B37.0 Stomatitis K12.1
[2024-11-01 17:14] LABS: DNA AB (DS) CRITHIDIA,IFA NEGATIVE (NEGATIVE)
--- NOTE | 2024-11-01 17:15 | ECG_ITS ---
[facility] Date: 2024-[facility]-01 Pat Name: Marisela Matute Department: Room: 257 Gender: Female Letter Of Credit Clerk: : 1990 Requested By: Anna Niño Order Number: [id number] Bear MD: Filiberto Bob M.D. Measurements Intervals [place] Rate: 81 P: 35 DE: 113 QRS: 26 QRSD: 86 T: 8 QT: 369 QTc: 429 Interpretive Statements SINUS RHYTHM WITH SHORT DE INTERVAL Compared to ECG 10/24/2024 19:01:58 Sinus tachycardia no longer present Myocardial infarct finding no longer present T-wave abnormality no longer present Possible ischemia no longer present Electronically Signed On 11-01-2024 19:55:17 CONTINUOUS DRYOUT OPERATOR HELPER by Filiberto Bob M.D. [email or web address]
[2024-11-01] MEDS: micafungin 100 MG in sodium chloride 0.9% (plus) 100 ML IV (17:52)
[2024-11-01 20:47] LABS: Alanine Aminotransferase 99 U/L (0-33); Albumin Level 3.7 g/dL (3.5-5.2); Alkaline Phosphatase 84 U/L (35-105); Anion Gap 15.1 (5-19); Aspartate Amino Transferase 62 U/L (0-32); Blood Urea Nitrogen 9 mg/dL (6-20); Calcium 9.7 mg/dL (8.5-10.5); Carbon Dioxide 23 mmol/L (22-29); Chloride 105 mmol/L (98-107); Creatinine Clr Calc Pharmacy 195.1416; Globulin 2.8 g/dL (1.3-4.6); Glomerular Filtration Rate 182.7 mL/min (90-130); Glucose 117 mg/dL (65-115); Magnesium 2.5 mg/dL (1.7-2.3); Osmolality Calculated 288 mOsm/kg (285-295); Potassium 4.1 mmol/L (3.5-5.1); Sodium 139 mmol/L (136-145); Total Bilirubin 0.8 mg/dL (0.15-1.2); Total Protein 6.5 g/dL (6.6-8.7)
[2024-11-02] VITALS (10 sets, daily range): BP systolic 92–112; BP diastolic 61–79; PULSE 81–100; RESP 14–16; TEMP 36.7–37.1; O2SAT 94–97
[2024-11-02 07:13] LABS: Beta 2 Glycoprotein IGA <2.0 U/mL; Beta 2 Glycoprotein IGG <2.0 U/mL; Beta 2 Glycoprotein IGM <2.0 U/mL; CARDIOLIPIN AB (IGA) <2.0 APL-U/mL; CARDIOLIPIN AB (IGG) <2.0 GPL-U/mL; CARDIOLIPIN AB (IGM) <2.0 MPL-U/mL
[2024-11-02] MEDS: thiamine 250 MG in sodium chloride 0.9% (100 ml) 100 ML 210 MG IV (09:13)
[2024-11-02] MEDS: folic acid 1 mg Tablet PO (09:13)
[2024-11-02] MEDS: pantoprazole 40 mg SDV IVP ×2 (09:13→17:12)
[2024-11-02] MEDS: AA-Dex 4.25%-5% w/Lytes 1,000 ML with multivitamin inj 10 ML 83 ML IV ×2 (09:39→21:46)
--- NOTE | 2024-11-02 15:35 | P.PN_ITS ---
Subjective 2 Subjective: No acute interim events. Awaiting transfer to [facility] Medications: Reviewed: Yes Vitals/I&O/Wt Last Vital Signs Temp 98.3 F 11/02/24 11:43 Pulse 90 11/02/24 11:43 Resp 14 11/02/24 11:43 BP 101/72 11/02/24 11:43 Pulse Ox 95 11/02/24 11:43 O2 Del Method Room Air 11/02/24 11:43 11/02/24 11/02/24 11/02/24 06:59 14:59 22:59 Intake Total 400 / 3422.050 1010 / 1010 Output Total 300 / 2100 Balance 100 / 6625.698 9646 / 1010 Weight last 48 hrs Weight 73.482 kg Weight 73.89 kg Physical Exam 2 Narrative: General: No acute distress, AO x3 HEENT: PERRLA, severe thrush affecting her tongue. Redness over soft palate. Chest: Normal vesicular breath sounds, no added sounds, equal good air entry bilaterally CVS: S1-S2 regular, no murmurs, no tachycardia, no gallops, no rubs Abdomen: Soft, nontender, no organomegaly, bowel sounds present Neuro: No focal motor deficits on exam Urinary Catheter Management: Sandra: Cath Placed During This Visit: yes, but has since been removed by the nurse Reason for Continuing Indwelling Catheter: Decision to DC Catheter Urinary Catheter Date of Insertion: 10/24/24 Urinary Catheter Time of Insertion: 23:48 Date Urinary Catheter Removed: 10/25/24 Time Urinary Catheter Discontinued: 13:03 Data 10/31/24 07:56 11/01/24 19:39 A&P Assessment and plan (1) Dehydration: (2) Cyclical vomiting: (3) Abnormal liver enzymes: (4) Hypokalemia: (5) Ketosis: (6) Esophagitis: (7) Thrush, oral: (8) Stomatitis: Plan Cyclical vomiting Does not smoke or drink alcohol, no use of marijuana Alpha gal deficiency She is currently being worked up at [facility] for mastocytosis EGD done October 14 which showed acute esophagitis without fungal infection in esophagus mucosa however she does have oral thrush for which I will give her nystatin, has the [employer] online portal report For concern related to gallbladder sludge General Surgery has been consulted I will keep her on Zosyn until then Start IV fluids Request dietitian to start PPN in the morning patient has not eaten in multiple weeks high risk for refeeding syndrome keep her on large sheetfed press operator electrolytes including potassium magnesium and phosphorus Sandra catheter placed for urinary retention Requested autoimmune workup for abnormal liver enzymes Patient is not diabetic hemoglobin A1c 5.4 I will keep her on GI soft diet DVT prophylaxis Lovenox Plan for today: 10/25/2024. Patient noted to have severe thrush. 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 Reviewed her biopsy results from which she has been healed. Esophagitis and gastritis was noted with mast cell deposition. Per review of the report it appears that they have planned to start patient on antihistamines, but she has not yet received any prescription for the same. She has only been recommended to take Protonix thus far. Fungal stains were negative. Unable to see any results of viral cytopathic changes. Unable to find results of H. pylori testing. Check HIV 1 2 antigen antibody screen. Concern for underlying immunocompromising condition given severity of her symptoms. Possibly autoimmune disorder. Noted to have deranged LFTs, patient states this has chronically been noted over the past 2 to 3 months, possibly may have autoimmune hepatitis. DAYDAY panel was ordered last evening, results not expected to be back until about 24 hours. Gallbladder sludge on US. non specific wall thickening. Less likely to be cholecystitis as no right upper quadrant tenderness .Chronicity of symptoms. Discontinue piperacillin/tazobactam. For now we will continue IV hydration. She appears to be much better hydrated today. BMI is 27.K is 3.3 Continue nystatin swish and swallow. May physically have an invasive pharyngitis. She reports severe weakness to the point of not being able to move her lower extremities. Not being able to walk to the bathroom. PT/OT assessment ordered. reports beingvery stressed recently due to family dynamics and her childrens' illness. 10/26/2024 -Chart reviewed, patient interviewed. Agree with assessment and plan so far. ? Patient was seen by physical therapy and home exercise program has been recommended ? She was also seen by Occupational Therapy. ? Patient does report double vision and symptoms have been persistent for the last 12 days. Also has left-sided weakness. Difficult to do a neurological exam however unable to fully look right upper quarter. Right eye stained midline. Does have to cover 1 eye to see clearly. ? Has been reporting the symptoms for the last 12 days. ? Check MRI brain to rule out a potential stroke? Discussed with radiology. Will check with and without contrast study. ? Vasculitis workup is pending. ? Patient has been quite stressed recently due to family dynamics and issues with dialysis. ? Will plan for potential discharge in a.m. as long as patient remains stable. ? She may need neurology follow-up outpatient versus inpatient consult prior to discharge pending clinical course. ? Will stop normal saline. Patient developing hyperchloremic metabolic acidosis. ? Continue Diflucan. 10/27/2024 - MRI brain shows: 1. Above-described findings suspicious for Wernicke's encephalopathy in the appropriate clinical setting. Recommend correlation with clinical history. 2. Moderate cerebellar atrophy advanced for patient this age nonspecific but can be seen with alcoholic encephalopathy and chronic phenytoin use or seizures - - Neurology consulted ? Continues to complain of diplopia. This is most likely secondary to Warnicke's. ? Order high-dose IV thiamine 500 mg 3 times daily x 48 hours then transition to 250 mg IM or IV daily for another 5 days ? Check vitamin B12 level, vitamin D ? Patient being worked up for mastocytosis at [facility]. She will need to follow-up with allergy immunology after discharge ? Vasculitis workup pending ? Neurology consulted. Will await recommendations ? Continue Diflucan at this time. Complete total 7-day course. ? Continue to work with physical therapy. 10/28/2024 -Appreciate neurology consultation. ? Patient has completed IV thiamine 503 times a day x 48 hours. Will start 250 IV daily starting tomorrow for 5 days. ? Vitamin D level low. Will place on 5000 units daily. Vitamin B12 647. ? Consult dietitian for PPN support. ? Have discussed with the patient regarding supplemental drinks as well. ? Continue Diflucan. Stop date October 31. Total 7 days ? Continue to work with physical therapy. ? Patient will need referral to tertiary care for workup and management of mastocytosis. ? Neuro follow-up at discharge for management of migraines. ? Refeeding syndrome: Continue to replete electrolytes. 10/29/2024 -Continue IV thiamine daily to 50 mg x 5 days ? Continue vitamin D, continue PPN support. Will consider stopping PPN tomorrow as intake orally improves ? Continue Diflucan. Stop date October 31. ? Continue to work with physical therapy ?? Patient will need referral to tertiary care for workup and management of mastocytosis. ? Neuro follow-up at discharge for management of migraines. ? Refeeding syndrome: Continue to replete electrolytes. 10/30/2024 -Continue IV thiamine daily 250 mg x 5 days ? Continue vitamin D, continue PPN support. Continue PPN at this time. Patient's oral intake is not enough to sustain life. ? Continue Diflucan. Stop date October 31. I will add micafungin today. Will stop Diflucan. ? Continue to work with physical therapy ? Orthostatic hypotension. ?? Patient will need referral to tertiary care for workup and management of mastocytosis. ? Neuro follow-up at discharge for management of migraines. ? Refeeding syndrome: Continue to replete electrolytes. ? Discussed with Dr. Pearce in detail. -Going forward patient may need a PEG tube and inpatient rehab services. ? Will discuss with [facility] for potential transfer for higher level of care for further diagnostic workup. ? 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 ? Continue on LR 125 cc/h. 10/31/2024 -Held LR. -Per discussion w/ the patient and her on 10/31, please consult primer expeditor and drier to decrease PPN to allow patient to attempt more solid foods. Encouraged the patient to take supplements such as Ensure, if she is unable to tolerate much meals. Please note that the Patient's mother is unable to receive information about the patient. 10/02/2024 Complains of tingling and numbness overall as if she has vibrations over her. Will check electrolytes including potassium calcium and magnesium. Stomatitis appears to be improving, as is thrush. There is noted to be clearing of the tip of her tongue now, coating is improving. He is able to have a more extended conversation, moving all extremities while laying in bed. However still reports photophobia and inability to focus. Still awaiting transfer to [facility]. Continue parenteral nutrition. Patient's father called the hospital today to report he suspects that patient is being poisoned in her home. We have discussed with the patient quite extensively in private in the presence of general warehouse worker. She states that she feels completely safe with her . She states that their family dynamics are such that her parents do not get along with her and blame him for her illness. However she states she has absolutely no concerns for her safety with her . She does not think he is going to harm her in any way. He has been helping her get better since onset of her symptoms. She has no concerns for domestic abuse. It is requested that all updates be given to patient and her only and be disseminated to the family based on their discretion. 10/03/2024 Overall caloric requirement orally still not adequate. We will continue PPN. Status post 10 days of IV antifungal therapy first with fluconazole then micafungin. Discontinue today. Thrush appears to be improving. Continue Magic mouthwash as needed. Completed thiamine 500 mg three times daily for two consecutive days and 250 mg IV once daily for an additional five days,?transition to oral thiamine 100 mg p.o. daily. Awaiting transfer to [facility] for further diagnostic workup of her underlying illness. Attestations 2 Medical Necessity Statement*: awaiting transfer to higher center Coding Level of Care Code Acute Code for g Fwd Diagnoses Dehydration E86.0 Cyclical vomiting R11.15 Abnormal liver enzymes R74.8 Hypokalemia E87.6 Ketosis E88.89 Esophagitis K20.90 Thrush, oral B37.0 Stomatitis K12.1
[2024-11-03] VITALS (8 sets, daily range): BP systolic 100–113; BP diastolic 68–79; PULSE 78–91; RESP 16–18; TEMP 36.4–37; O2SAT 95–97
--- NOTE | 2024-11-03 08:12 | PC.NURSE ---
Patient's father Irwin Ledesma, called me, malthouse laborer, and expressed concerns about patient's , Dawit. Mr Ledesma believes Dawit is possibly poisoning her or is doing something that is causing her malnutrition. Mr Ledesma is not on the patient's list of people whom we can talk to, however he asked if we could pass his concerns to her physician. I told Mr. Ledesma that i would make a note of his concerns. I will also notify patient's nurse.
[2024-11-03] MEDS: pantoprazole 40 mg SDV IVP ×2 (08:15→17:14)
[2024-11-03] MEDS: thiamine 100 mg Tablet PO (08:16)
[2024-11-03] MEDS: folic acid 1 mg Tablet PO (08:16)
[2024-11-03] MEDS: enoxaparin 40 mg/0.4 mL Syringe SUBCUT (08:16)
[2024-11-03] MEDS: AA-Dex 4.25%-5% w/Lytes 1,000 ML with multivitamin inj 10 ML 83 ML IV ×2 (10:12→21:26)
[2024-11-03 11:19] LABS: Basophils % 0.6 %; Eosinophils # 0.2 10^3/uL (0.0-0.8); Eosinophils % 4.7 %; Hematocrit 34.3 % (36-47); Lymphocytes % 19.5 %; Mean Corpuscular HGB Conc 33.2 g/dL (30-55); Mean Corpuscular Hemoglobin 31.7 pg (27-33); Mean Corpuscular Volume 95.3 fl (85-98); Mean Platelet Volume 10.8 fL (7.4-10.4); Monocytes # 0.6 10^3/uL (0.2-0.9); Monocytes % 12.3 %; Neutrophils # 3.04 10^3/uL (1.8-7.7); Neutrophils % 62.5 %; Nucleated Red Blood Cells % 0 %; Platelet Count 247 10^3/cmm (157-399); Red Cell Distribution Width 14.1 % (12.1-15.1); White Blood Count 4.87 10^3/uL (3.29-11.43)
[2024-11-03 11:36] LABS: Alanine Aminotransferase 85 U/L (0-33); Albumin Level 3.5 g/dL (3.5-5.2); Alkaline Phosphatase 81 U/L (35-105); Anion Gap 15.9 (5-19); Aspartate Amino Transferase 39 U/L (0-32); Blood Urea Nitrogen 11 mg/dL (6-20); Calcium 9.9 mg/dL (8.5-10.5); Carbon Dioxide 23 mmol/L (22-29); Chloride 103 mmol/L (98-107); Creatinine Clr Calc Pharmacy 193.1406; Globulin 2.8 g/dL (1.3-4.6); Glomerular Filtration Rate 182.7 mL/min (90-130); Glucose 106 mg/dL (65-115); Osmolality Calculated 286 mOsm/kg (285-295); Potassium 3.9 mmol/L (3.5-5.1); Sodium 138 mmol/L (136-145); Total Bilirubin 0.9 mg/dL (0.15-1.2); Total Protein 6.3 g/dL (6.6-8.7)
--- NOTE | 2024-11-03 15:28 | PM.PN ---
Subjective Subjective: no acute interim events today Medications: Reviewed: Yes Vitals/I&O/Wt Last Vital Signs Temp 97.7 F 11/03/24 15:20 Pulse 91 11/03/24 15:20 Resp 18 11/03/24 15:20 BP 101/69 11/03/24 15:20 Pulse Ox 95 11/03/24 15:20 O2 Del Method Room Air 11/03/24 15:20 11/03/24 11/03/24 11/03/24 06:59 14:59 22:59 Intake Total 1352.5 / 1352.5 Output Total 750 / 1150 Balance -750 / 1855.866 7010.5 / 1352.5 Weight last 48 hrs Weight 72.291 kg Weight 73.482 kg Physical Exam Narrative: General: No acute distress, AO x3 HEENT: PERRLA, severe thrush affecting her tongue. Redness over soft palate. Chest: Normal vesicular breath sounds, no added sounds, equal good air entry bilaterally CVS: S1-S2 regular, no murmurs, no tachycardia, no gallops, no rubs Abdomen: Soft, nontender, no organomegaly, bowel sounds present Neuro: No focal motor deficits on exam Urinary Catheter Management: Sandra: Cath Placed During This Visit: yes, but has since been removed by the nurse Reason for Continuing Indwelling Catheter: Decision to DC Catheter Urinary Catheter Date of Insertion: 10/24/24 Urinary Catheter Time of Insertion: 23:48 Date Urinary Catheter Removed: 10/25/24 Time Urinary Catheter Discontinued: 13:03 Data 11/03/24 11:05 11/03/24 11:05 A&P Assessment and plan (1) Dehydration: (2) Cyclical vomiting: (3) Abnormal liver enzymes: (4) Hypokalemia: (5) Ketosis: (6) Esophagitis: (7) Thrush, oral: (8) Stomatitis: Plan Cyclical vomiting Does not smoke or drink alcohol, no use of marijuana Alpha gal deficiency She is currently being worked up at [facility] for mastocytosis EGD done October 14 which showed acute esophagitis without fungal infection in esophagus mucosa however she does have oral thrush for which I will give her nystatin, has the [employer] online portal report For concern related to gallbladder sludge General Surgery has been consulted I will keep her on Zosyn until then Start IV fluids Request dietitian to start PPN in the morning patient has not eaten in multiple weeks high risk for refeeding syndrome keep her on electronic device monitor electrolytes including potassium magnesium and phosphorus Sandra catheter placed for urinary retention Requested autoimmune workup for abnormal liver enzymes Patient is not diabetic hemoglobin A1c 5.4 I will keep her on GI soft diet DVT prophylaxis Lovenox Plan for today: 10/25/2024. Patient noted to have severe thrush. 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 Reviewed her biopsy results from which she has been healed. Esophagitis and gastritis was noted with mast cell deposition. Per review of the report it appears that they have planned to start patient on antihistamines, but she has not yet received any prescription for the same. She has only been recommended to take Protonix thus far. Fungal stains were negative. Unable to see any results of viral cytopathic changes. Unable to find results of H. pylori testing. Check HIV 1 2 antigen antibody screen. Concern for underlying immunocompromising condition given severity of her symptoms. Possibly autoimmune disorder. Noted to have deranged LFTs, patient states this has chronically been noted over the past 2 to 3 months, possibly may have autoimmune hepatitis. DAYDAY panel was ordered last evening, results not expected to be back until about 24 hours. Gallbladder sludge on US. non specific wall thickening. Less likely to be cholecystitis as no right upper quadrant tenderness .Chronicity of symptoms. Discontinue piperacillin/tazobactam. For now we will continue IV hydration. She appears to be much better hydrated today. BMI is 27.K is 3.3 Continue nystatin swish and swallow. May physically have an invasive pharyngitis. She reports severe weakness to the point of not being able to move her lower extremities. Not being able to walk to the bathroom. PT/OT assessment ordered. reports beingvery stressed recently due to family dynamics and her childrens' illness. 10/26/2024 -Chart reviewed, patient interviewed. Agree with assessment and plan so far. ? Patient was seen by physical therapy and home exercise program has been recommended ? She was also seen by Occupational Therapy. ? Patient does report double vision and symptoms have been persistent for the last 12 days. Also has left-sided weakness. Difficult to do a neurological exam however unable to fully look right upper quarter. Right eye stained midline. Does have to cover 1 eye to see clearly. ? Has been reporting the symptoms for the last 12 days. ? Check MRI brain to rule out a potential stroke? Discussed with radiology. Will check with and without contrast study. ? Vasculitis workup is pending. ? Patient has been quite stressed recently due to family dynamics and issues with dialysis. ? Will plan for potential discharge in a.m. as long as patient remains stable. ? She may need neurology follow-up outpatient versus inpatient consult prior to discharge pending clinical course. ? Will stop normal saline. Patient developing hyperchloremic metabolic acidosis. ? Continue Diflucan. 10/27/2024 - MRI brain shows: 1. Above-described findings suspicious for Wernicke's encephalopathy in the appropriate clinical setting. Recommend correlation with clinical history. 2. Moderate cerebellar atrophy advanced for patient this age nonspecific but can be seen with alcoholic encephalopathy and chronic phenytoin use or seizures - - Neurology consulted ? Continues to complain of diplopia. This is most likely secondary to Warnicke's. ? Order high-dose IV thiamine 500 mg 3 times daily x 48 hours then transition to 250 mg IM or IV daily for another 5 days ? Check vitamin B12 level, vitamin D ? Patient being worked up for mastocytosis at [facility]. She will need to follow-up with allergy immunology after discharge ? Vasculitis workup pending ? Neurology consulted. Will await recommendations ? Continue Diflucan at this time. Complete total 7-day course. ? Continue to work with physical therapy. 10/28/2024 -Appreciate neurology consultation. ? Patient has completed IV thiamine 503 times a day x 48 hours. Will start 250 IV daily starting tomorrow for 5 days. ? Vitamin D level low. Will place on 5000 units daily. Vitamin B12 647. ? Consult dietitian for PPN support. ? Have discussed with the patient regarding supplemental drinks as well. ? Continue Diflucan. Stop date October 31. Total 7 days ? Continue to work with physical therapy. ? Patient will need referral to tertiary care for workup and management of mastocytosis. ? Neuro follow-up at discharge for management of migraines. ? Refeeding syndrome: Continue to replete electrolytes. 10/29/2024 -Continue IV thiamine daily to 50 mg x 5 days ? Continue vitamin D, continue PPN support. Will consider stopping PPN tomorrow as intake orally improves ? Continue Diflucan. Stop date October 31. ? Continue to work with physical therapy ?? Patient will need referral to tertiary care for workup and management of mastocytosis. ? Neuro follow-up at discharge for management of migraines. ? Refeeding syndrome: Continue to replete electrolytes. 10/30/2024 -Continue IV thiamine daily 250 mg x 5 days ? Continue vitamin D, continue PPN support. Continue PPN at this time. Patient's oral intake is not enough to sustain life. ? Continue Diflucan. Stop date October 31. I will add micafungin today. Will stop Diflucan. ? Continue to work with physical therapy ? Orthostatic hypotension. ?? Patient will need referral to tertiary care for workup and management of mastocytosis. ? Neuro follow-up at discharge for management of migraines. ? Refeeding syndrome: Continue to replete electrolytes. ? Discussed with Dr. Pearce in detail. -Going forward patient may need a PEG tube and inpatient rehab services. ? Will discuss with [facility] for potential transfer for higher level of care for further diagnostic workup. ? 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 ? Continue on LR 125 cc/h. 10/31/2024 -Held LR. -Per discussion w/ the patient and her on 10/31, please consult paper roll machine operator to decrease PPN to allow patient to attempt more solid foods. Encouraged the patient to take supplements such as Ensure, if she is unable to tolerate much meals. Please note that the Patient's mother is unable to receive information about the patient. 11/01/2024 Complains of tingling and numbness overall as if she has vibrations over her. Will check electrolytes including potassium calcium and magnesium. Stomatitis appears to be improving, as is thrush. There is noted to be clearing of the tip of her tongue now, coating is improving. He is able to have a more extended conversation, moving all extremities while laying in bed. However still reports photophobia and inability to focus. Still awaiting transfer to [facility]. Continue parenteral nutrition. Patient's father called the hospital today to report he suspects that patient is being poisoned in her home. We have discussed with the patient quite extensively in private in the presence of annual greenhouse manager. She states that she feels completely safe with her . She states that their family dynamics are such that her parents do not get along with her and blame him for her illness. However she states she has absolutely no concerns for her safety with her . She does not think he is going to harm her in any way. He has been helping her get better since onset of her symptoms. She has no concerns for domestic abuse. It is requested that all updates be given to patient and her only and be disseminated to the family based on their discretion. 11/02/2024 Overall caloric requirement orally still not adequate. We will continue PPN. Status post 10 days of IV antifungal therapy first with fluconazole then micafungin. Discontinue today. Thrush appears to be improving. Continue Magic mouthwash as needed. Completed thiamine 500 mg three times daily for two consecutive days and 250 mg IV once daily for an additional five days,?transition to oral thiamine 100 mg p.o. daily. Awaiting transfer to [facility] for further diagnostic workup of her underlying illness. 11/03/24: no acute interime vents. electrolytes WNL. LFT stable, awaiting transfer Attestations Medical Necessity Statement*: awaiting transfer Coding Level of Care Code Acute Code for Chg Fwd Diagnoses Dehydration E86.0 Cyclical vomiting R11.15 Abnormal liver enzymes R74.8 Hypokalemia E87.6 Ketosis E88.89 Esophagitis K20.90 Thrush, oral B37.0 Stomatitis K12.1
[2024-11-04] VITALS (9 sets, daily range): BP systolic 101–111; BP diastolic 64–76; PULSE 78–101; RESP 14–17; TEMP 36.3–37.1; O2SAT 94–98
[2024-11-04] MEDS: thiamine 100 mg Tablet PO (09:20)
[2024-11-04] MEDS: pantoprazole 40 mg SDV IVP ×2 (09:20→22:33)
[2024-11-04] MEDS: folic acid 1 mg Tablet PO (09:20)
[2024-11-04] MEDS: enoxaparin 40 mg/0.4 mL Syringe SUBCUT (09:20)
[2024-11-04] MEDS: AA-Dex 4.25%-5% w/Lytes 1,000 ML with multivitamin inj 10 ML 83 ML IV ×2 (11:38→22:33)
--- NOTE | 2024-11-04 17:10 | PM.PN ---
Subjective Subjective: No acute interim events. Continues to have poor p.o. intake. Attempting to eat more but not meeting caloric goals just yet. Reports increased weakness and fatigue. Medications: Reviewed: Yes Vitals/I&O/Wt Last Vital Signs Temp 97.8 F 11/04/24 15:34 Pulse 101 H 11/04/24 15:34 Resp 15 11/04/24 15:34 BP 101/68 11/04/24 15:34 Pulse Ox 96 11/04/24 15:34 O2 Del Method Room Air 11/04/24 15:34 11/04/24 11/04/24 11/04/24 06:59 14:59 22:59 Intake Total 1395 / 1395 Output Total 750 / 1250 400 / 400 Balance -750 / 1394.867 995 / 995 Weight last 48 hrs Weight 72.393 kg Weight 72.291 kg Physical Exam Narrative: General: No acute distress, AO x3 HEENT: PERRLA, severe thrush affecting her tongue. Redness over soft palate. Chest: Normal vesicular breath sounds, no added sounds, equal good air entry bilaterally CVS: S1-S2 regular, no murmurs, no tachycardia, no gallops, no rubs Abdomen: Soft, nontender, no organomegaly, bowel sounds present Urinary Catheter Management: Sandra: Cath Placed During This Visit: yes, but has since been removed by the nurse Reason for Continuing Indwelling Catheter: Decision to DC Catheter Urinary Catheter Date of Insertion: 10/24/24 Urinary Catheter Time of Insertion: 23:48 Date Urinary Catheter Removed: 10/25/24 Time Urinary Catheter Discontinued: 13:03 Data 11/03/24 11:05 11/03/24 11:05 A&P Assessment and plan (1) Dehydration: (2) Cyclical vomiting: (3) Abnormal liver enzymes: (4) Hypokalemia: (5) Ketosis: (6) Esophagitis: (7) Thrush, oral: (8) Stomatitis: Plan Cyclical vomiting Does not smoke or drink alcohol, no use of marijuana Alpha gal deficiency [facility] EGD done October 14 which showed acute esophagitis without fungal infection in esophagus mucosa however she does have oral thrush for which I will give her nystatin, has the [employer] online portal report For concern related to gallbladder sludge General Surgery has been consulted I will keep her on Zosyn until then Start IV fluids Request dietitian to start PPN in the morning patient has not eaten in multiple weeks high risk for refeeding syndrome keep her on front desk monitor electrolytes including potassium magnesium and phosphorus Sandra catheter placed for urinary retention Requested autoimmune workup for abnormal liver enzymes Patient is not diabetic hemoglobin A1c 5.4 I will keep her on GI soft diet DVT prophylaxis Lovenox Plan for today: 10/25/2024. Patient noted to have severe thrush. 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 Reviewed her biopsy results from which she has been healed. Esophagitis and gastritis was noted with mast cell deposition. Per review of the report it appears that they have planned to start patient on antihistamines, but she has not yet received any prescription for the same. She has only been recommended to take Protonix thus far. Fungal stains were negative. Unable to see any results of viral cytopathic changes. Unable to find results of H. pylori testing. Check HIV 1 2 antigen antibody screen. Concern for underlying immunocompromising condition given severity of her symptoms. Possibly autoimmune disorder. Noted to have deranged LFTs, patient states this has chronically been noted over the past 2 to 3 months, possibly may have autoimmune hepatitis. DAYDAY panel was ordered last evening, results not expected to be back until about 24 hours. Gallbladder sludge on US. non specific wall thickening. Less likely to be cholecystitis as no right upper quadrant tenderness .Chronicity of symptoms. Discontinue piperacillin/tazobactam. For now we will continue IV hydration. She appears to be much better hydrated today. BMI is 27.K is 3.3 Continue nystatin swish and swallow. May physically have an invasive pharyngitis. She reports severe weakness to the point of not being able to move her lower extremities. Not being able to walk to the bathroom. PT/OT assessment ordered. reports beingvery stressed recently due to family dynamics and her childrens' illness. 10/26/2024 -Chart reviewed, patient interviewed. Agree with assessment and plan so far. ? Patient was seen by physical therapy and home exercise program has been recommended ? She was also seen by Occupational Therapy. ? Patient does report double vision and symptoms have been persistent for the last 12 days. Also has left-sided weakness. Difficult to do a neurological exam however unable to fully look right upper quarter. Right eye stained midline. Does have to cover 1 eye to see clearly. ? Has been reporting the symptoms for the last 12 days. ? Check MRI brain to rule out a potential stroke? Discussed with radiology. Will check with and without contrast study. ? Vasculitis workup is pending. ? Patient has been quite stressed recently due to family dynamics and issues with dialysis. ? Will plan for potential discharge in a.m. as long as patient remains stable. ? She may need neurology follow-up outpatient versus inpatient consult prior to discharge pending clinical course. ? Will stop normal saline. Patient developing hyperchloremic metabolic acidosis. ? Continue Diflucan. 10/27/2024 - MRI brain shows: 1. Above-described findings suspicious for Wernicke's encephalopathy in the appropriate clinical setting. Recommend correlation with clinical history. 2. Moderate cerebellar atrophy advanced for patient this age nonspecific but can be seen with alcoholic encephalopathy and chronic phenytoin use or seizures - - Neurology consulted ? Continues to complain of diplopia. This is most likely secondary to Warnicke's. ? Order high-dose IV thiamine 500 mg 3 times daily x 48 hours then transition to 250 mg IM or IV daily for another 5 days ? Check vitamin B12 level, vitamin D ? Patient being worked up for mastocytosis at [facility]. She will need to follow-up with allergy immunology after discharge ? Vasculitis workup pending ? Neurology consulted. Will await recommendations ? Continue Diflucan at this time. Complete total 7-day course. ? Continue to work with physical therapy. 10/28/2024 -Appreciate neurology consultation. ? Patient has completed IV thiamine 503 times a day x 48 hours. Will start 250 IV daily starting tomorrow for 5 days. ? Vitamin D level low. Will place on 5000 units daily. Vitamin B12 647. ? Consult dietitian for PPN support. ? Have discussed with the patient regarding supplemental drinks as well. ? Continue Diflucan. Stop date October 31. Total 7 days ? Continue to work with physical therapy. ? Patient will need referral to tertiary care for workup and management of mastocytosis. ? Neuro follow-up at discharge for management of migraines. ? Refeeding syndrome: Continue to replete electrolytes. 10/29/2024 -Continue IV thiamine daily to 50 mg x 5 days ? Continue vitamin D, continue PPN support. Will consider stopping PPN tomorrow as intake orally improves ? Continue Diflucan. Stop date October 31. ? Continue to work with physical therapy ?? Patient will need referral to tertiary care for workup and management of mastocytosis. ? Neuro follow-up at discharge for management of migraines. ? Refeeding syndrome: Continue to replete electrolytes. 10/30/2024 -Continue IV thiamine daily 250 mg x 5 days ? Continue vitamin D, continue PPN support. Continue PPN at this time. Patient's oral intake is not enough to sustain life. ? Continue Diflucan. Stop date October 31. I will add micafungin today. Will stop Diflucan. ? Continue to work with physical therapy ? Orthostatic hypotension. ?? Patient will need referral to tertiary care for workup and management of mastocytosis. ? Neuro follow-up at discharge for management of migraines. ? Refeeding syndrome: Continue to replete electrolytes. ? Discussed with Dr. Pearce in detail. -Going forward patient may need a PEG tube and inpatient rehab services. ? Will discuss with [facility] for potential transfer for higher level of care for further diagnostic workup. ? 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 ? Continue on LR 125 cc/h. 10/31/2024 -Held LR. -Per discussion w/ the patient and her on 10/31, please consult railway signal electrician to decrease PPN to allow patient to attempt more solid foods. Encouraged the patient to take supplements such as Ensure, if she is unable to tolerate much meals. Please note that the Patient's mother is unable to receive information about the patient. 11/01/2024 Complains of tingling and numbness overall as if she has vibrations over her. Will check electrolytes including potassium calcium and magnesium. Stomatitis appears to be improving, as is thrush. There is noted to be clearing of the tip of her tongue now, coating is improving. He is able to have a more extended conversation, moving all extremities while laying in bed. However still reports photophobia and inability to focus. Still awaiting transfer to [facility]. Continue parenteral nutrition. Patient's father called the hospital today to report he suspects that patient is being poisoned in her home. We have discussed with the patient quite extensively in private in the presence of warehouse supervisor. She states that she feels completely safe with her . She states that their family dynamics are such that her parents do not get along with her and blame him for her illness. However she states she has absolutely no concerns for her safety with her . She does not think he is going to harm her in any way. He has been helping her get better since onset of her symptoms. She has no concerns for domestic abuse. It is requested that all updates be given to patient and her only and be disseminated to the family based on their discretion. 11/02/2024 Overall caloric requirement orally still not adequate. We will continue PPN. Status post 10 days of IV antifungal therapy first with fluconazole then micafungin. Discontinue today. Thrush appears to be improving. Continue Magic mouthwash as needed. Completed thiamine 500 mg three times daily for two consecutive days and 250 mg IV once daily for an additional five days,?transition to oral thiamine 100 mg p.o. daily. Awaiting transfer to [facility] for further diagnostic workup of her underlying illness. 11/03/24: no acute interime vents. electrolytes WNL. LFT stable, awaiting transfer 11/04/2024 No acute interim events. Awaiting transfer to [place] to expedite diagnostic testing. Discussed with patient that PPN would be a bridge to eventual goal of enteral feeding. However it remains concerning that she is still not at caloric goals. Discussed with her that may need placement of PEG for enteral feeding, however this would be best done at a place with GI capabilities given recently abnormal endoscopic evaluation at [facility]. Attestations Medical Necessity Statement*: Awaiting transfer to [place] Coding Level of Care Code Acute Code for Chg Fwd Straight Forward/Low MDM includes number and complexity of problems actively addressed during encounter, amount and/or complexity of data reviewed/ordered and described risk of complication, morbidity or mortality of management as documented Diagnoses Dehydration E86.0 Cyclical vomiting R11.15 Abnormal liver enzymes R74.8 Hypokalemia E87.6 Ketosis E88.89 Esophagitis K20.90 Thrush, oral B37.0 Stomatitis K12.1
[2024-11-05] VITALS (10 sets, daily range): BP systolic 91–122; BP diastolic 62–81; PULSE 79–95; RESP 15–16; TEMP 36.3–36.9; O2SAT 92–98
[2024-11-05] MEDS: enoxaparin 40 mg/0.4 mL Syringe SUBCUT (09:07)
[2024-11-05] MEDS: folic acid 1 mg Tablet PO (09:08)
[2024-11-05] MEDS: pantoprazole 40 mg SDV IVP ×2 (09:08→17:19)
[2024-11-05] MEDS: thiamine 100 mg Tablet PO (09:08)
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
[2024-11-06] VITALS (8 sets, daily range): BP systolic 101–116; BP diastolic 66–80; PULSE 73–87; RESP 15–16; TEMP 36.6–36.8; O2SAT 95–99
[2024-11-06 05:20] LABS: Basophils # 0.1 10^3/uL (0.0-0.1); Basophils % 1.2 %; Eosinophils # 0.2 10^3/uL (0.0-0.8); Eosinophils % 3.1 %; Hematocrit 32.8 % (36-47); Lymphocytes # 0.9 10^3/uL (0.8-4.8); Mean Corpuscular HGB Conc 33.5 g/dL (30-55); Mean Corpuscular Hemoglobin 32.1 pg (27-33); Mean Corpuscular Volume 95.6 fl (85-98); Mean Platelet Volume 11.1 fL (7.4-10.4); Monocytes # 0.7 10^3/uL (0.2-0.9); Monocytes % 13.7 %; Neutrophils # 3.11 10^3/uL (1.8-7.7); Neutrophils % 63.8 %; Nucleated Red Blood Cells % 0 %; Platelet Count 263 10^3/cmm (157-399); Red Blood Count 3.43 10^6/uL (3.85-5.65); Red Cell Distribution Width 15.5 % (12.1-15.1); White Blood Count 4.88 10^3/uL (3.29-11.43)
[2024-11-06 05:38] LABS: Alanine Aminotransferase 69 U/L (0-33); Albumin Level 3.6 g/dL (3.5-5.2); Alkaline Phosphatase 84 U/L (35-105); Anion Gap 12.1 (5-19); Aspartate Amino Transferase 42 U/L (0-32); Blood Urea Nitrogen 11 mg/dL (6-20); Calcium 10.5 mg/dL (8.5-10.5); Carbon Dioxide 27 mmol/L (22-29); Chloride 104 mmol/L (98-107); Creatinine Clr Calc Pharmacy 154.1611; Globulin 2.9 g/dL (1.3-4.6); Glomerular Filtration Rate 141.2 mL/min (90-130); Glucose 89 mg/dL (65-115); Osmolality Calculated 287 mOsm/kg (285-295); Potassium 4.1 mmol/L (3.5-5.1); Sodium 139 mmol/L (136-145); Total Protein 6.5 g/dL (6.6-8.7)
[2024-11-06] MEDS: pantoprazole 40 mg SDV IVP ×2 (09:11→20:07)
[2024-11-06] MEDS: enoxaparin 40 mg/0.4 mL Syringe SUBCUT (09:11)
[2024-11-06] MEDS: folic acid 1 mg Tablet PO (09:12)
[2024-11-06] MEDS: thiamine 100 mg Tablet PO (09:12)
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
[2024-11-07] VITALS (8 sets, daily range): BP systolic 96–104; BP diastolic 56–74; PULSE 71–86; RESP 14–22; TEMP 36.6–36.8; O2SAT 94–98
[2024-11-07] MEDS: folic acid 1 mg Tablet PO (12:36)
[2024-11-07] MEDS: enoxaparin 40 mg/0.4 mL Syringe SUBCUT (12:36)
[2024-11-07] MEDS: thiamine 100 mg Tablet PO (12:36)
[2024-11-07] MEDS: pantoprazole 40 mg SDV IVP ×2 (12:37→18:46)
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
[2024-11-08] VITALS (8 sets, daily range): BP systolic 99–134; BP diastolic 63–92; PULSE 78–86; RESP 14–18; TEMP 36.3–37.2; O2SAT 96–98
[2024-11-08 04:25] LABS: Alanine Aminotransferase 86 U/L (0-33); Albumin Level 3.8 g/dL (3.5-5.2); Alkaline Phosphatase 92 U/L (35-105); Blood Urea Nitrogen 9 mg/dL (6-20); Calcium 10.1 mg/dL (8.5-10.5); Carbon Dioxide 25 mmol/L (22-29); Chloride 103 mmol/L (98-107); Creatinine Clr Calc Pharmacy 153.4793; Globulin 2.7 g/dL (1.3-4.6); Glomerular Filtration Rate 141.2 mL/min (90-130); Glucose 102 mg/dL (65-115); Osmolality Calculated 289 mOsm/kg (285-295); Sodium 140 mmol/L (136-145); Total Bilirubin 1.6 mg/dL (0.15-1.2); Total Protein 6.5 g/dL (6.6-8.7)
[2024-11-08 04:39] LABS: Anion Gap 16.3 (5-19); Aspartate Amino Transferase 58 U/L (0-32); Potassium 4.3 mmol/L (3.5-5.1)
[2024-11-08] MEDS: enoxaparin 40 mg/0.4 mL Syringe SUBCUT (09:27)
[2024-11-08] MEDS: pantoprazole 40 mg SDV IVP ×2 (09:27→21:30)
[2024-11-08] MEDS: thiamine 100 mg Tablet PO (09:28)
[2024-11-08] MEDS: folic acid 1 mg Tablet PO (09:28)
--- NOTE | 2024-11-08 13:09 | CT_ITS ---
WS: [id number] CT ABDOMEN PELVIS TECHNIQUE: Noncontrast CT of the abdomen and pelvis with coronal and sagittal reformatted images. CLINICAL INFORMATION: nausea, constipation COMPARISON: 10/24/2024 DLP: 508.[address] scans at [facility] use at least one of these dose optimization techniques: automated e xposure control; mA and/or kV adjustment per patient size (includes targeted exams where dose is matc hed to clinical indication); or iterative reconstruction. FINDINGS: Normal noncontrast liver. Normal noncontrast spleen. Trace pericardial fluid. Air-fluid level in the stomach. Mild distention of the stomach. Trace fluid with atelectasis in the lung bases. Adrenal glan ds are normal. No hydronephrosis in either kidney. Incidental fatty infiltration at the falciform lig ament. Normal noncontrast gallbladder. Noncontrast pancreas appears normal. Fat-containing umbilical hernia. Normal caliber noncontrast aorta. Normal appendix in the RIGHT lower quadrant. Low-lying transverse c olon. Mild transverse colon constipation. No evidence of high-grade small or large bowel obstruction. No free fluid in the pelvis. Mild wall thickening in the bladder. Recommend correlation for UTI/cyst itis. CT/CT abdomen pelvis wo con [id number] IMPRESSION: 1. Fluid distended stomach with air-fluid level. 2. No evidence of high-grade small or large bowel obstruction. Low-lying trans verse colon with mild fecal retention in the transverse colon and RIGHT colon. 3. No free fluid in the abdomen or pelvis. 4. No hydronephrosis in either kidney. 5. Trace pleural fluid with slight bibasal atelectasis. Trace pericardial flui d. 6. Mild bladder wall thickening can be seen with UTI or cystitis.
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
[2024-11-08] MEDS: lactulose oral liq 20 gm/30 mL UDC 10 GM PO (19:19)
[2024-11-08] MEDS: sennosides-docusate Tablet 1 TAB PO (19:20)
--- NOTE | 2024-11-08 19:54 | PC.NURSE ---
The physician asked to perform a PVR on patient to ensure there was no urinary retention. Pt voided and had 25 mL in bladder.
[2024-11-09] VITALS (7 sets, daily range): BP systolic 104–113; BP diastolic 71–76; PULSE 73–98; RESP 15–17; TEMP 36.4–37; O2SAT 95–97
[2024-11-09 04:58] LABS: Basophils % 0.6 %; Eosinophils # 0.1 10^3/uL (0.0-0.8); Eosinophils % 2.9 %; Hematocrit 33.1 % (36-47); Lymphocytes # 0.9 10^3/uL (0.8-4.8); Lymphocytes % 24.4 %; Mean Corpuscular HGB Conc 34.1 g/dL (30-55); Mean Corpuscular Volume 93.8 fl (85-98); Mean Platelet Volume 11.2 fL (7.4-10.4); Monocytes # 0.6 10^3/uL (0.2-0.9); Monocytes % 18.1 %; Neutrophils # 1.86 10^3/uL (1.8-7.7); Neutrophils % 53.4 %; Nucleated Red Blood Cells % 0 %; Platelet Count 210 10^3/cmm (157-399); Red Blood Count 3.53 10^6/uL (3.85-5.65); Red Cell Distribution Width 15.7 % (12.1-15.1); White Blood Count 3.48 10^3/uL (3.29-11.43)
[2024-11-09 05:28] LABS: Blood Urea Nitrogen 8 mg/dL (6-20); Calcium 9.8 mg/dL (8.5-10.5); Carbon Dioxide 24 mmol/L (22-29); Chloride 102 mmol/L (98-107); Creatinine Clr Calc Pharmacy 191.8492; Glomerular Filtration Rate 182.7 mL/min (90-130); Glucose 83 mg/dL (65-115); Osmolality Calculated 283 mOsm/kg (285-295); Phosphorus 4.2 mg/dL (2.5-4.5); Sodium 138 mmol/L (136-145)
[2024-11-09 05:34] LABS: Anion Gap 15.8 (5-19); Potassium 3.8 mmol/L (3.5-5.1)
[2024-11-09] MEDS: thiamine 100 mg Tablet PO (09:19)
[2024-11-09] MEDS: sennosides-docusate Tablet 1 TAB PO ×2 (09:19→17:07)
[2024-11-09] MEDS: folic acid 1 mg Tablet PO (09:19)
[2024-11-09] MEDS: pantoprazole 40 mg SDV IVP ×2 (09:19→17:07)
[2024-11-09] MEDS: enoxaparin 40 mg/0.4 mL Syringe SUBCUT (09:19)
--- NOTE | 2024-11-09 12:27 | XRR_ITS ---
PROCEDURE INFORMATION: Exam: XR Chest Exam date and time: 11/09/2024 12:36 PM Age: 34 years old Clinical indication: Device placement; Ng tube; Additional info: Ng tube placement TECHNIQUE: Imaging protocol: Radiologic exam of the chest. Views: 1 view. COMPARISON: CR (CHEST, ) 10/30/2024 3:53 PM FINDINGS: Tubes, catheters and devices: Interval placement of nasogastric tube with tip near the GE junction at the cardia of the stomach. Right-sided PICC line remains in place tip in SVC. Lungs: Left retrocardiac scar versus atelectasis again seen. Pleural spaces: No pleural effusion or pneumothorax. Heart/Mediastinum: Unremarkable. Bones/joints: No significant pathology. Soft tissues: Right lateral chest partially excluded from the film. XR/XR chest 1V portable [id number] IMPRESSION: Nasogastric tube now in place with tip near the GE junction at the cardia of the stomach.
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
--- NOTE | 2024-11-09 15:10 | PC.NURSE ---
Pt c/o of NG tube being very uncomfortable and too much mucous coming out of nose and saliva having to spit quite a bit. Dr. Fortune notified and states if pt wants to take it out, to do so. Pt and decided they want NG tube out. Ng tube removed w/o incident.
--- NOTE | 2024-11-09 15:29 | PC.OT ---
OT treatment session attempted with patient declining due to feeling tired from NG tube procedure today; will attempt again at later time. Treatment plan updated by this OTR/L due to treatment plan expiring.
[2024-11-10] VITALS (9 sets, daily range): BP systolic 106–118; BP diastolic 72–83; PULSE 76–90; RESP 14–17; TEMP 36.4–36.8; O2SAT 96–98
[2024-11-10 06:19] LABS: Basophils % 1.1 %; Eosinophils # 0.1 10^3/uL (0.0-0.8); Hematocrit 35.3 % (36-47); Lymphocytes # 0.6 10^3/uL (0.8-4.8); Lymphocytes % 17.5 %; Mean Corpuscular HGB Conc 33.7 g/dL (30-55); Mean Corpuscular Hemoglobin 32.4 pg (27-33); Mean Corpuscular Volume 96.2 fl (85-98); Mean Platelet Volume 11.4 fL (7.4-10.4); Monocytes # 0.7 10^3/uL (0.2-0.9); Monocytes % 19.5 %; Neutrophils # 2.14 10^3/uL (1.8-7.7); Neutrophils % 58.6 %; Nucleated Red Blood Cells % 0 %; Platelet Count 244 10^3/cmm (157-399); Red Blood Count 3.67 10^6/uL (3.85-5.65); Red Cell Distribution Width 15.8 % (12.1-15.1); White Blood Count 3.65 10^3/uL (3.29-11.43)
[2024-11-10 08:07] LABS: Anion Gap 16.4 (5-19); Blood Urea Nitrogen 7 mg/dL (6-20); Calcium 10.2 mg/dL (8.5-10.5); Carbon Dioxide 25 mmol/L (22-29); Chloride 103 mmol/L (98-107); Creatinine Clr Calc Pharmacy 153.4343; Glomerular Filtration Rate 141.2 mL/min (90-130); Glucose 85 mg/dL (65-115); Magnesium 1.9 mg/dL (1.7-2.3); Osmolality Calculated 287 mOsm/kg (285-295); Phosphorus 4.4 mg/dL (2.5-4.5); Potassium 4.4 mmol/L (3.5-5.1); Sodium 140 mmol/L (136-145)
[2024-11-10] MEDS: thiamine 100 mg Tablet PO (09:37)
[2024-11-10] MEDS: folic acid 1 mg Tablet PO (09:37)
[2024-11-10] MEDS: pantoprazole 40 mg SDV IVP ×2 (09:37→18:28)
[2024-11-10] MEDS: enoxaparin 40 mg/0.4 mL Syringe SUBCUT (09:37)
[2024-11-10] MEDS: sennosides-docusate Tablet 1 TAB PO ×2 (09:37→18:28)
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
--- NOTE | 2024-11-10 10:13 | PC.NURSE ---
Sherita from [facility] called for update this am. Stated patient would go to a medical bed and patient moving up on list.
[2024-11-11] VITALS (9 sets, daily range): BP systolic 103–117; BP diastolic 68–84; PULSE 79–89; RESP 16–17; TEMP 36.6–36.8; O2SAT 95–97
[2024-11-11] MEDS: enoxaparin 40 mg/0.4 mL Syringe SUBCUT (09:32)
[2024-11-11] MEDS: folic acid 1 mg Tablet PO (09:33)
[2024-11-11] MEDS: thiamine 100 mg Tablet PO (09:33)
[2024-11-11] MEDS: sennosides-docusate Tablet 1 TAB PO ×2 (09:33→18:20)
[2024-11-11] MEDS: pantoprazole 40 mg SDV IVP ×2 (09:33→18:20)
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
--- NOTE | 2024-11-11 16:43 | PC.NURSE ---
Notified Dr. Fortune of patient asking for fluids. Patient stated the physician had stated fluids could be started. Dr. Fortune gave orders to give Normal Saline 1000 at 100cc/hr.
[2024-11-11] MEDS: sodium chloride 0.9% 1,000 ML 100 ML IV (16:59)
[2024-11-12] VITALS (8 sets, daily range): BP systolic 94–120; BP diastolic 63–81; PULSE 70–89; RESP 15–16; TEMP 36.4–36.8; O2SAT 96–100
[2024-11-12] MEDS: sodium chloride 0.9% 1,000 ML 100 ML IV ×3 (01:40→21:27)
[2024-11-12 05:19] LABS: Alanine Aminotransferase 46 U/L (0-33); Albumin Level 3.3 g/dL (3.5-5.2); Alkaline Phosphatase 70 U/L (35-105); Anion Gap 14.6 (5-19); Aspartate Amino Transferase 28 U/L (0-32); Blood Urea Nitrogen 3 mg/dL (6-20); Calcium 9.5 mg/dL (8.5-10.5); Carbon Dioxide 23 mmol/L (22-29); Chloride 108 mmol/L (98-107); Creatinine Clr Calc Pharmacy 191.4525; Globulin 2.5 g/dL (1.3-4.6); Glomerular Filtration Rate 182.7 mL/min (90-130); Glucose 81 mg/dL (65-115); Magnesium 1.8 mg/dL (1.7-2.3); Osmolality Calculated 290 mOsm/kg (285-295); Phosphorus 3.9 mg/dL (2.5-4.5); Potassium 3.6 mmol/L (3.5-5.1); Sodium 142 mmol/L (136-145); Total Bilirubin 0.8 mg/dL (0.15-1.2); Total Protein 5.8 g/dL (6.6-8.7)
[2024-11-12] MEDS: thiamine 100 mg Tablet PO (09:04)
[2024-11-12] MEDS: folic acid 1 mg Tablet PO (09:04)
[2024-11-12] MEDS: pantoprazole 40 mg SDV IVP ×2 (09:05→17:45)
[2024-11-12] MEDS: sennosides-docusate Tablet 1 TAB PO ×2 (09:05→17:46)
[2024-11-12] MEDS: enoxaparin 40 mg/0.4 mL Syringe SUBCUT (09:05)
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
--- NOTE | 2024-11-12 15:16 | P.CONIM_ITS ---
Providers/Reason For Consult 2 Consulting Physician/Specialty*: VANESA Choi MD/cardiology Reason for Consult*: Patient with orthostatic hypotension/possible POTS Requesting Physician: Dr. Fortune Attending Physician: Cinthia Fortune MD History of Present Illness History of Present Illness Marisela Matute is a 34 year old female who was admitted to the hospital with nausea, vomiting and dehydration. She carries a diagnosis of alpha gal syndrome, gastritis with a possible mastocytosis /esophagitis and oral thrush. She was found to have significant postural drop in the systolic blood pressure. Also has a history of postural tachycardia. Cardiology is consulted mainly to evaluate for postural orthostatic tachycardia syndrome. This patient has no previous history for any documented significant cardiac arrhythmia. She has a history of palpitations off and on over the last many years. She had a heart monitor sometime ago in [place] and was told to have some irregular heartbeat. She was not placed on any medications at that time. She has a history of eclampsia with her last child who is currently 6 years old. She had a HELLP syndrome. She is mainly complaining of dizziness and weakness with the nausea and vomiting. She got dizzy even in the bed which gets worse with the movements of the head. She have not had any .Syncopal episodes. The nausea and vomiting is improving. The stomach discomfort also is persisting. She was evaluated by neurology. She is diagnosed with Wernicke's encephalopathy with the cerebellar manifestation and chronic intractable migraine. She has no chest pain or any unusual shortness of breath.No fever or chills. No significant cough. She had an echocardiogram , few days ago which was essentially unremarkable. The EKG showed a sinus rhythm with short MD interval. Normal QRS duration. Review of Systems 2 Narrative: CONSTITUTIONAL: No fever or chills. EYES: No blurring of vision or other visual disturbances lately. ENT: No hoarseness of voice, auditory disturbances or sore throat. CARDIOVASCULAR: As mentioned above. RESPIRATORY: No significant cough. GASTROINTESTINAL: As mentioned above GENITOURINARY: No dysuria or hematuria. INTEGUMENTARY: No skin rashes or history of skin cancer. NEURO: As mentioned above PSYCHIATRIC: No history of psychosis or major depression. HEMATOLOGIC: No bleeding disorders or significant anemia. ENDOCRINE: No history of polyuria or polydipsia. MUSCULOSKELETAL: No recent joint pain or swelling. ALLERGY/IMMUNOLOGY: As mentioned above. Medications/Allergies Home Medications Medication Instructions Recorded Confirmed Last Taken Type No Known Home Medications 10/25/24 10/25/24 Unknown History Allergies Allergy/AdvReac Type Severity Reaction Status Date / Time Alpha-Gal Allergy Unknown Verified 10/24/24 18:59 (Fkhwsiapx-Rufkq-2,3-Gala Current Medications Generic Name Dose Route Start Last Admin Trade Name Felixq PRN Reason Stop Dose Admin Enoxaparin Sodium 40 mg 11/03/24 09:00 11/12/24 09:05 Enoxaparin 40 Mg/0.4 Ml Syringe SUBCUT 40 mg DAILY MADAI Administration Folic Acid 1 mg 10/27/24 09:00 11/12/24 09:04 Folic Acid 1 Mg Tablet PO 1 mg DAILY MADAI Administration Sodium Chloride 1,000 mls @ 100 mls/hr 11/11/24 16:45 11/12/24 13:33 Sodium Chloride 0.9% IV 100 mls/hr .Q10H MADAI Administration Pantoprazole Sodium 40 mg 11/08/24 21:00 11/12/24 09:05 Pantoprazole 40 Mg Sdv IVP 40 mg BID MADAI Administration Senna/Docusate Sodium 1 tab 11/08/24 18:20 11/12/24 09:05 Sennosides-Docusate Tablet PO 1 tab BID MADAI Administration Thiamine Mononitrate 100 mg 11/03/24 09:00 11/12/24 09:04 Thiamine 100 Mg Tablet PO 100 mg DAILY MADAI Administration PFSH Acute 2 PFSH: Medical History MTHFR mutation Preeclampsia HELLP syndrome Vitals/I&O/Wt Last Vital Signs Temp 97.5 F L 11/12/24 11:20 Pulse 89 11/12/24 11:20 Resp 16 11/12/24 11:20 BP 117/78 11/12/24 11:20 Pulse Ox 96 11/12/24 11:20 O2 Del Method Room Air 11/12/24 11:20 11/12/24 11/12/24 11/12/24 06:59 14:59 22:59 Intake Total 988.333 / 6327.259 2290 / 1120 Output Total 500 / 800 Balance 488.333 / 616.444 1545 / 1120 Weight last 48 hrs Weight 156 lb 6.4 oz Weight 156 lb 14.4 oz Physical Exam 2 Narrative: GENERAL: The patient is alert and oriented times three. Not in any acute distress. HEENT: No significant pallor, icterus or lymphadenopathy.Oral cavity: There are no mucous membrane lesions. NECK: Trachea appears to be central. No masses noted. No JVD or thyromegaly appreciated. RESPIRATORY: Chest is symmetrical. No intercostals muscle retraction or any accessory muscle activation. There is no chest wall tenderness. Breath sounds are heard bilaterally. No rales or rhonchi heard. No evidence of any consolidation. BREASTS: Deferred. HEART: The heart sounds are normal. No S3 or S4. No significant murmurs. No pericardial rub ABDOMEN: No vessel pulsations or distention. No tenderness. No organomegaly appreciated. Bowel sounds are normally heard. : Deferred. RECTAL: Deferred. LYMPHATIC: No lymphadenopathy noted in the neck. EXTREMITIES: No edema or cyanosis. No clubbing. MUSCULOSKELETAL: No acute joint deformities or swelling SKIN: There are no significant rashes or ecchymosis NEUROPSYCHIATRIC: The patient is alert and oriented x3. Appears to be in a good mood. No tremors or rigidity noted. The blood pressure in the lying down position was 119/85 with a heart rate of 77 bpm. In the sitting up, the blood pressure was 116/82 with a heart rate of 86. In the standing up, blood pressure was 120/77 with a heart rate of 106 bpm Urinary Catheter Management: Sandra: Cath Placed During This Visit: yes, but has since been removed by the nurse Reason for Continuing Indwelling Catheter: Decision to DC Catheter Urinary Catheter Date of Insertion: 10/24/24 Urinary Catheter Time of Insertion: 23:48 Date Urinary Catheter Removed: 10/25/24 Time Urinary Catheter Discontinued: 13:03 Data 11/10/24 05:32 11/12/24 04:40 Other Labs: Laboratory Last Values WBC 3.65 10^3/uL (3.29-11.43) 11/10/24 05:32 Corrected WBC Cancelled 10/28/24 05:35 RBC 3.67 10^6/uL (3.85-5.65) L 11/10/24 05:32 Hgb 11.90 g/dL (11.27-16.99) 11/10/24 05:32 Hct 35.3 % (36-47) L 11/10/24 05:32 MCV 96.2 fl (85-98) 11/10/24 05:32 MCH 32.4 pg (27-33) 11/10/24 05:32 MCHC 33.7 g/dL (30-55) 11/10/24 05:32 RDW 15.8 % (12.1-15.1) H 11/10/24 05:32 Plt Count 244 10^3/cmm (157-399) 11/10/24 05:32 MPV 11.4 fL (7.4-10.4) H 11/10/24 05:32 Gran % Cancelled 10/28/24 05:35 Neut % (Auto) 58.6 % 11/10/24 05:32 Lymph % (Auto) 17.5 % 11/10/24 05:32 [place] % (Auto) 19.5 % 11/10/24 05:32 Eos % (Auto) 3.0 % 11/10/24 05:32 Baso % (Auto) 1.1 % 11/10/24 05:32 Neut # (Auto) 2.14 10^3/uL (1.8-7.7) 11/10/24 05:32 Lymph # (Auto) 0.6 10^3/uL (0.8-4.8) L 11/10/24 05:32 [place] # (Auto) 0.7 10^3/uL (0.2-0.9) 11/10/24 05:32 Eos # (Auto) 0.1 10^3/uL (0.0-0.8) 11/10/24 05:32 Baso # (Auto) 0.0 10^3/uL (0.0-0.1) 11/10/24 05:32 Absolute Gran (auto) Cancelled 10/28/24 05:35 Nucleated RBC % (auto) 0 % 11/10/24 05:32 Nucleated RBCs # 0.0 /100WBC 11/10/24 05:32 Sodium 142 mmol/L (136-145) 11/12/24 04:40 Potassium 3.6 mmol/L (3.5-5.1) 11/12/24 04:40 Chloride 108 mmol/L (98-107) H 11/12/24 04:40 Carbon Dioxide 23 mmol/L (22-29) 11/12/24 04:40 Anion Gap 14.6 (5-19) 11/12/24 04:40 BUN 3 mg/dL (6-20) L 11/12/24 04:40 Creatinine 0.4 mg/dL (0.5-0.9) L 11/12/24 04:40 GFR Calculation 182.7 mL/min (90-130) H 11/12/24 04:40 Glucose 81 mg/dL (65-115) 11/12/24 04:40 POC Glucose 100 mg/dL (70-110) 10/29/24 14:15 Calculated Osmolality 290 mOsm/kg (285-295) 11/12/24 04:40 Lactic Acid 0.9 mmol/L (0.5-2.2) 10/30/24 18:30 Calcium 9.5 mg/dL (8.5-10.5) 11/12/24 04:40 Phosphorus 3.9 mg/dL (2.5-4.5) 11/12/24 04:40 Magnesium 1.8 mg/dL (1.7-2.3) 11/12/24 04:40 Total Bilirubin 0.8 mg/dL (0.15-1.2) 11/12/24 04:40 AST 28 U/L (0-32) 11/12/24 04:40 ALT 46 U/L (0-33) H 11/12/24 04:40 Alkaline Phosphatase 70 U/L (35-105) 11/12/24 04:40 Creatine Kinase 113 U/L (26-192) 10/25/24 12:07 C-Reactive Protein 129.8 mg/L (0.0-4.9) H 10/25/24 12:07 Total Protein 5.8 g/dL (6.6-8.7) L 11/12/24 04:40 Albumin 3.3 g/dL (3.5-5.2) L 11/12/24 04:40 Globulin 2.5 g/dL (1.3-4.6) 11/12/24 04:40 Thiamine 730 nmol/L (78-185) H 10/27/24 08:27 Vitamin B12 597 pg/mL (232-1245) 10/27/24 13:33 25-OH Vitamin D Total 16 ng/mL (30-100) L 10/27/24 13:33 HCG, Qual Negative (Negative) 10/24/24 20: Random Cortisol 11.33 ug/dL (2.47-19.5) 10/25/24 12:07 Urine Color [place] (Yellow) A 10/24/24 20: Urine Appearance Clear (CLEAR) 10/24/24 20: Urine pH 6.5 (5-7) 10/24/24 20: Ur Specific [place] 1.039 (1.005-1.030) H 10/24/24 20: Urine Protein Trace (Negative) A 10/24/24 20: Urine Glucose (UA) Negative (Normal) 10/24/24 20: Urine Ketones 2+ (Negative) H 10/24/24 20: Urine Blood Negative (Negative) 10/24/24 20: Urine Nitrate Negative (Negative) 10/24/24 20: Urine Bilirubin 2+ (Negative) H 10/24/24 20: Urine Urobilinogen 2.0 mg/dL (Negative) H 10/24/24 20:27 Ur Leukocyte Esterase Trace (Negative) A 10/24/24 20: Urine RBC 0-2 /hpf (0-2) 10/24/24 20: Urine WBC 0-5 /hpf (0-5) 10/24/24 20: Ur Squamous Epith Cells 0-5 /hpf (0-5) 10/24/24 20: Amorphous Sediment Not Reportable 10/24/24 20: Urine Bacteria None seen /hpf (NONE) 10/24/24 20: Hyaline Casts 4.95 /lpf 10/24/24 20: Urine Mucus 4+ /hpf 10/24/24 20: Urine Opiates Screen Negative ng/mL (Negative) 10/24/24 20: Ur Barbiturates Screen Negative ng/mL (Negative) 10/24/24 20: Ur Phencyclidine Scrn Negative ng/mL (Negative) 10/24/24 20: Ur Amphetamines Screen Negative ng/mL (Negative) 10/24/24 20: U Benzodiazepines Scrn Negative ng/mL (Negative) 10/24/24 20: Urine Cocaine Screen Negative ng/mL (Negative) 10/24/24 20:27 U Marijuana (THC) Screen Negative ng/mL (Negative) 10/24/24 20:27 DADYAY Screen Cancelled 10/25/24 12:07 DAYDAY Titer Cancelled 10/25/24 12:07 DAYDAY Titer 2 Cancelled 10/25/24 12:07 DAYDAY Titer 3 Cancelled 10/25/24 12:07 DAYDAY Nuclear Membr Pat Nuclear, speckled A 10/25/24 12:07 DAYDAY Pattern Cancelled 10/25/24 12:07 DAYDAY Pattern 2 Cancelled 10/25/24 12:07 DAYDAY Pattern 3 Cancelled 10/25/24 12:07 DAYDAY IFA Animal Tis Ttr 1:40 titer H 10/25/24 12:07 DAYDAY IFA Animal Tis Res Positive (NEGATIVE) A 10/25/24 12:07 ANCA Screen Negative (NEGATIVE) 10/25/24 12:07 ANCA Titer Not Reportable 10/25/24 12:07 LORRAINE-1 Antibody <1.0 neg AI (<1.0 NEG) 10/25/24 12:07 SS-A Antibody <1.0 neg AI (<1.0 NEG) 10/25/24 12:07 SS-B Antibody <1.0 neg AI (<1.0 NEG) 10/25/24 12:07 Sm ([place]) Antibody <1.0 neg AI (<1.0 NEG) 10/25/24 12:07 [employer] Antibody <1.0 neg AI (<1.0 NEG) 10/25/24 12:07 Scl-70 Antibody <1.0 neg AI (<1.0 NEG) 10/25/24 12:07 Anti-ds DNA IgG Ab <1 IU/mL 10/25/24 12:07 Anti-ds DNA IgG Ab Cancelled 10/25/24 12:07 Anti-ds DNA IgG ([place]) Negative (NEGATIVE) 10/25/24 12:07 Centromere B Antibody <1.0 neg AI (<1.0 NEG) 10/25/24 12:07 Mitochon/Sm Musc Ab Titr Cancelled 10/25/24 12:07 Beta-2-GPI IgG Ab <2.0 U/mL 10/25/24 12:07 Beta-2-GPI IgA Ab <2.0 U/mL 10/25/24 12:07 Beta-2-GPI IgM Ab <2.0 U/mL 10/25/24 12:07 Thyroid Peroxidase Ab <1 IU/mL (<9) 10/25/24 12:07 Phosphatidylserine IgG <9 U (< OR = 30) 10/25/24 12:07 Phosphatidylserine IgM <9 U (< OR = 30) 10/25/24 12:07 Phospholipid Ab Comment See note 10/25/24 12:07 Anti-Cardiolipin IgG Ab <2.0 GPL-U/mL 10/25/24 12:07 Anti-Cardiolipin IgA Ab <2.0 APL-U/mL 10/25/24 12:07 Anti-Cardiolipin IgM Ab <2.0 MPL-U/mL 10/25/24 12:07 Complement C3c 135 mg/dL (83-193) 10/25/24 12:07 Complement C4c 31 mg/dL (15-57) 10/25/24 12:07 CH50 Classical Pathway 50 U/mL (31-60) 10/25/24 12:07 Coronavirus (PCR) Negative (Negative) 10/24/24 21:24 Hepatitis A IgM Ab Non-reactive (Nonreactive) 10/26/24 18:43 Hep Bs Antigen Non-reactive (Nonreactive) 10/26/24 18:43 Hep Bs Antibody 47.0 (11.5-1000) 10/26/24 18:43 Hep B Core Total Ab Non-reactive (Nonreactive) 10/26/24 18:43 Hep B Core IgM Ab Non-reactive (Nonreactive) 10/24/24 19:53 Hepatitis C Antibody Non-reactive (Nonreactive) 10/26/24 18:43 Herpes Simplex Source Lips 10/25/24 13:40 HIV 1&2 Ab & HIV 1 Ag Non-reactive (Non-Reactiv) 10/25/24 12:07 HIV 1&2 Antibody Non-reactive (Non-Reactiv) 10/25/24 12:07 Influenza A (PCR) Negative (Negative) 10/24/24 21:24 Influenza Type B (PCR) Negative (Negative) 10/24/24 21:24 RSV (PCR) Negative (Negative) 10/24/24 21:24 Mitochondrial DNA Scrn Cancelled 10/25/24 12:07 Mitochondrial DNA Scrn Negative (NEGATIVE) 10/25/24 12:07 HSV 1 DNA Not detected (Not Detected) 10/25/24 13:40 HSV 2 DNA Detected (Not Detected) A 10/25/24 13:40 Other data: EKG on 11/01/2024 Normal sinus rhythm with short MD interval. Some nonspecific T wave changes in the inferior leads. Normal QRS duration. Echocardiogram done on 10/26/2024 Possibly normal LV size ejection fraction of 65%.no regional wall motion abnormalities. Normal cardiac chamber sizes. No gross valvular abnormalities. There is no pericardial effusion. There are no intracardiac masses. No similar previous studies are available for comparison A&P Assessment and plan (1) Orthostatic hypotension: The patient currently has no significant orthostatic hypotension. Most likely this could have been related to dehydration. She is wearing compression stockings. At this point, the patient will require any other intervention. (2) Tachycardia: She does not have any significant's tachycardia at this point. Reviewing the heart rate during the hospital stay, did not notice any significant tachycardia. At this point, there is not enough evidence to suggest POTS. (3) Esophagitis: May continue on the current management. (4) Chronic migraine without aura, intractable, with status migrainosus: Management as per the neurology service. (5) Wernicke's encephalopathy with cerebellar manifestation: The dizziness most likely related to this. Plan From a cardiac standpoint, I do not think this patient has any significant arrhythmias/POTS. At this point, she will require any specific cardiac intervention. She may be continued on the fluid hydration, compression stockings and other current management. Thank you for the opportunity to evaluate this patient and make recommendations Coding Level of Care Code 59502 Diagnoses Orthostatic hypotension I95.1 Tachycardia R00.0 Esophagitis K20.90 Chronic migraine without aura, intractable, with status migrainosus G43.711 Wernicke's encephalopathy with cerebellar manifestation E51.2
[2024-11-13] VITALS (8 sets, daily range): BP systolic 100–119; BP diastolic 64–84; PULSE 71–87; RESP 16–18; TEMP 36.3–36.8; O2SAT 97–100
[2024-11-13 04:17] LABS: Alanine Aminotransferase 36 U/L (0-33); Albumin Level 3.2 g/dL (3.5-5.2); Alkaline Phosphatase 60 U/L (35-105); Aspartate Amino Transferase 24 U/L (0-32); Blood Urea Nitrogen 2 mg/dL (6-20); Calcium 8.6 mg/dL (8.5-10.5); Carbon Dioxide 21 mmol/L (22-29); Chloride 112 mmol/L (98-107); Globulin 2.1 g/dL (1.3-4.6); Glomerular Filtration Rate 254.7 mL/min (90-130); Glucose 75 mg/dL (65-115); Osmolality Calculated 289 mOsm/kg (285-295); Sodium 142 mmol/L (136-145); Total Bilirubin 0.7 mg/dL (0.15-1.2); Total Protein 5.3 g/dL (6.6-8.7)
[2024-11-13 04:22] LABS: Anion Gap 12.4 (5-19); Potassium 3.4 mmol/L (3.5-5.1)
[2024-11-13] MEDS: sodium chloride 0.9% 1,000 ML 100 ML IV ×2 (07:54→18:23)
[2024-11-13] MEDS: enoxaparin 40 mg/0.4 mL Syringe SUBCUT (10:07)
[2024-11-13] MEDS: pantoprazole 40 mg SDV IVP ×2 (10:07→18:24)
[2024-11-13] MEDS: folic acid 1 mg Tablet PO (10:08)
[2024-11-13] MEDS: sennosides-docusate Tablet 1 TAB PO ×2 (10:08→18:24)
[2024-11-13] MEDS: thiamine 100 mg Tablet PO (10:08)
--- NOTE | 2024-11-13 13:58 | PC.NURSE ---
While Physician at bedside talking with pt, this nurse entered room to find pt sitting up in bed, legs crossed, no dizziness, nausea, or headache. She sat up and talked with the physician for approximately 40 minutes. No c/o any sort during this time.
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
--- NOTE | 2024-11-13 15:36 | P.NPUHP_ITS ---
Providers/Chief Complaint 2 Admitting Physician: Joshua Craig MD Chief Complaint: hydrated, cant stand,hold head, weakness HPI NPU History of Present Illness Marisela Matute is a 34 year old female who presented to the emergency department with the following report: Chief complaint: Nausea/Vomiting/Diarrhea Stated complaint: hydrated, cant stand,hold head, weakness Time Seen by Provider: 10/24/24 20:01 History of Present Illness: 34-year-old female who had an EGD in September according to family. She has had continued vomiting and abdominal pain since that time. She was seen at an outside facility, last night, and given IV fluids. X-ray of the abdomen was evidently negative. She presents with lethargy, generalized abdominal pain. No fever. No continued vomiting. Psychiatric consult was requested secondary to there being concerns about a somatic/psychiatric aspect to her presentation. She presented today reporting: Chief complaint Dehydration and vomiting with associated dizziness and psychosis. History of the present complaint The patient reports experiencing significant dehydration and vomiting, which led to hospitalization. The onset of these symptoms was around the middle of September, when she began having more intense reactions, including vomiting, which she attributes to a possible aggravation from a medical procedure performed on October 14, 2024. She describes being unable to eat and experiencing continuous vomiting, leading to imbalances in electrolytes and dehydration. The patient mentions that she was so dehydrated that she experienced dizziness and delirium, likely exacerbated by sleep deprivation. The patient discusses a history of childhood counseling due to parental separation but denies any psychiatric treatment or medication for anxiety or depression in her adult life. She has not used tobacco, alcohol, or drugs. She mentions a condition related to alpha-gal, which has caused her to eliminate certain foods, potentially leading to nutritional deficiencies. She feels dismissed by durable medical equipment repairer when trying to address these dietary concerns and seeks guidance on replenishing necessary nutrients. The patient describes significant stressors in her life, including extended family issues and her daughter's prolonged illness. Her daughter, born prematurely six years ago, had a severe virus causing prolonged coughing, which added to the patient's stress, especially as her was away for work during this time. The patient expresses feeling overwhelmed by the need to manage her health issues and family responsibilities, particularly when her is away for work. The patient acknowledges the mental and physical toll of her condition and the stressors in her life. She expresses a desire for support and guidance in managing her health and family responsibilities. She is apprehensive about being discharged from the hospital and wants to ensure she is well enough to return home without underlying issues. The patient is concerned about the impact of her condition on her ability to care for her family and manage her responsibilities effectively. Mental health history The patient reported having some counseling during childhood due to parental separation but has not engaged in any psychiatric treatment or therapy in adulthood. There is no history of medication for anxiety or depression. The patient has not been admitted to a psychiatric hospital before. Meds NPU Home Medications Medication Instructions Recorded Confirmed Last Taken Type No Known Home Medications 10/25/24 10/25/24 Unknown History Allergies Allergy/AdvReac Type Severity Reaction Status Date / Time Alpha-Gal Allergy Unknown Verified 10/24/24 18:59 (Wnozjmzjv-Qcyxk-3,3-Gala PFSH NPU 2 PFSH: Medical History MTHFR mutation Preeclampsia HELLP syndrome Mental Status Exam 2 MSE Comments: This is an overweight white female in hospital gown with limited grooming but adequate eye contact. No abnormal movement except for mild psychomotor retardation. Cooperative with exam in mild distress. Speech was slightly decreased rate and volume. Mood described as all right, affect congruent. Thought process organized. Thought content: Patient denied suicidal or homicidal ideation, there were no delusions reported or noted, she denied any auditory or visual hallucinations. Expresses apprehension and uncertainty about being discharged and going home, questioning if they are truly okay. Reports sleep deprivation contributing to delirium. Unable to eat, not avoiding food on purpose. Stressors include extended family issues, health problems, daughter's prolonged illness, and spouse's absence due to work. Experienced delirium due to sleep deprivation and dehydration. Attention and concentration were intact and memory appeared mostly reliable but none were formally tested. She is alert and oriented x 3. Insight and judgment appear fair and impulse control fair as well. Vitals/I&O/Wt Last Vital Signs Temp 97.6 F 11/13/24 11:53 Pulse 82 11/13/24 11:53 Resp 18 11/13/24 11:53 BP 110/78 11/13/24 11:53 Pulse Ox 97 11/13/24 11:53 O2 Del Method Room Air 11/13/24 11:53 11/13/24 11/13/24 11/13/24 06:59 14:59 22:59 Intake Total 1120 / 1120 Balance 1120 / 1120 Weight last 48 hrs Weight 70.942 kg Physical Exam 2 Urinary Catheter Management: Sandra: Cath Placed During This Visit: yes, but has since been removed by the nurse Reason for Continuing Indwelling Catheter: Decision to DC Catheter Urinary Catheter Date of Insertion: 10/24/24 Urinary Catheter Time of Insertion: 23:48 Date Urinary Catheter Removed: 10/25/24 Time Urinary Catheter Discontinued: 13:03 Data NPU 11/10/24 05:32 11/15/24 05:57 A&P Assessment and plan (1) Anxiety: (2) Adjustment disorder with mixed disturbance of emotions and conduct: Plan This is a 34-year-old white female with no significant history of mental health challenges who presented with nutritional deficiencies giving a Warnicke's presentation who has been awaiting transfer without luck and acknowledging significant psychosocial issues that complicated her medical presentation. The patient was experiencing symptoms consistent with Wernicke's encephalopathy, likely due to vitamin B deficiency exacerbated by dehydration and malnutrition. There is also a mention of psychosis, which may be related to the nutritional deficiencies and dehydration. The patient has been dealing with significant stressors, including family issues and health challenges, which may have contributed to the current condition. Plan Seek out a specialist in alpha-gal to better manage dietary restrictions and health concerns. Consider finding someone to talk to about the challenges of being a singleish mom and other personal issues. Explore joining an alpha-gal support group for shared experiences and advice. Establish a mental health support system to ensure emotional well-being. Maintain communication with durable medical equipment repairer for follow-up care and guidance post-discharge. 1. Continue current medication. Advised to consider antidepressant antianxiety agent if desired. 2. Agree with discharge once medically cleared. 3. Recommend establishing a mental health therapist. Also recommend participating in focus groups. 4. Advised to consider the crisis stabilization center if there is a worsening of her mental health or if she finds her self in a crisis and needing support or therapy before establishing a therapist. 5. Please reconsult if necessary. Attestations NPU 2 Medical Necessity Statement*: N/A. Please see primary team note for medical necessity. Coding Level of Care Code Acute Code for Chg Fwd Diagnoses Anxiety F41.9 Adjustment disorder with mixed disturbance of emotions and conduct F43.25
[2024-11-13] MEDS: potassium chloride ER 20 mEq Tablet 40 MEQ PO (18:51)
[2024-11-14] VITALS (8 sets, daily range): BP systolic 110–124; BP diastolic 67–86; PULSE 70–92; RESP 14–18; TEMP 36.3–36.8; O2SAT 97–100
[2024-11-14] MEDS: sodium chloride 0.9% 1,000 ML 100 ML IV ×2 (04:46→18:20)
[2024-11-14] MEDS: enoxaparin 40 mg/0.4 mL Syringe SUBCUT (09:51)
[2024-11-14] MEDS: folic acid 1 mg Tablet PO (09:51)
[2024-11-14] MEDS: thiamine 100 mg Tablet PO (09:51)
[2024-11-14] MEDS: pantoprazole 40 mg SDV IVP ×2 (09:51→18:20)
[2024-11-14] MEDS: sennosides-docusate Tablet 1 TAB PO ×2 (09:51→18:20)
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
[2024-11-15] VITALS: BP 124/76; PULSE 89; RESP 15; TEMP 36.7; O2SAT 98
[2024-11-15] MEDS: sodium chloride 0.9% 1,000 ML 100 ML IV (03:40)
[2024-11-15 04:00] VITALS: BP 114/73; PULSE 90; RESP 15; TEMP 36.7; O2SAT 98
[2024-11-15 07:20] LABS: Anion Gap 17.5 (5-19); Blood Urea Nitrogen 3 mg/dL (6-20); Calcium 8.8 mg/dL (8.5-10.5); Carbon Dioxide 19 mmol/L (22-29); Chloride 109 mmol/L (98-107); Creatinine Clr Calc Pharmacy 193.3821; Glomerular Filtration Rate 182.7 mL/min (90-130); Glucose 79 mg/dL (65-115); Magnesium 1.6 mg/dL (1.7-2.3); Osmolality Calculated 289 mOsm/kg (285-295); Potassium 3.5 mmol/L (3.5-5.1); Sodium 142 mmol/L (136-145)
[2024-11-15 07:56] VITALS: BP 113/62; PULSE 98; RESP 17; TEMP 36.7; O2SAT 98
[2024-11-15] MEDS: pantoprazole 40 mg SDV IVP (09:01)
[2024-11-15] MEDS: folic acid 1 mg Tablet PO (09:01)
[2024-11-15] MEDS: thiamine 100 mg Tablet PO (09:01)
[2024-11-15] MEDS: sennosides-docusate Tablet 1 TAB PO (09:01)
[2024-11-15] MEDS: enoxaparin 40 mg/0.4 mL Syringe SUBCUT (09:01)
[2024-11-15] MEDS: magnesium sulfate premix 1 GM/100 ML PIGGYBACK IV (10:52)
[2024-11-15 11:57] VITALS: BP 120/86; PULSE 93; RESP 17; TEMP 36.5; O2SAT 98
--- NOTE | 2024-11-15 13:46 | W.PM.NPUPNS ---
Subjective NPU Subjective: Patient presented today reporting that she is feeling better. She is out of the bed and sitting up in a chair with regular close on. was present as we discussed her considering medication for depression or anxiety. We discussed getting a follow-up in behavioral health, but also that the crisis center at is a great resource. If they were to change their mind and decide to go on the direction of medication or if there was just a need for acute crisis intervention and support we discussed the hours of the facility. Otherwise she denied any problems or concerns that would suggest that discharge would not be appropriate. Both and patient agree that she is ready to go home and reintegrate. Mental Status Exam MSE Comments: This is an overweight white female in civilian clothes with appropriate grooming and eye contact. No abnormal movement except for mild psychomotor retardation. Cooperative with exam in mild distress. Speech was slightly decreased rate and volume. Mood described as I think I am fine, affect congruent. Thought process organized. Thought content: Patient denied suicidal or homicidal ideation, there were no delusions reported or noted, she denied any auditory or visual hallucinations. Expresses apprehension and uncertainty about being discharged and going home, questioning if they are truly okay. Reports sleep deprivation contributing to delirium. Unable to eat, not avoiding food on purpose. Stressors include extended family issues, health problems, daughter's prolonged illness, and spouse's absence due to work. Experienced delirium due to sleep deprivation and dehydration. Attention and concentration were intact and memory appeared mostly reliable but none were formally tested. She is alert and oriented x 3. Insight and judgment appear fair and impulse control fair as well. Vitals/I&O/Wt Last Vital Signs Temp 97.7 F 11/15/24 11:57 Pulse 93 11/15/24 11:57 Resp 17 11/15/24 11:57 BP 120/86 11/15/24 11:57 Pulse Ox 98 11/15/24 11:57 O2 Del Method Room Air 11/15/24 11:57 11/14/24 11/15/24 11/15/24 22:59 06:59 14:59 Intake Total 933.333 / 2233.333 340 / 340 Output Total 1100 / 1100 Balance -1100 / 200 933.333 / 1133.333 340 / 340 Weight last 48 hrs Weight 72.484 kg Weight 74.797 kg Physical Exam Urinary Catheter Management: Sandra: Cath Placed During This Visit: yes, but has since been removed by the nurse Reason for Continuing Indwelling Catheter: Decision to DC Catheter Urinary Catheter Date of Insertion: 10/24/24 Urinary Catheter Time of Insertion: 23:48 Date Urinary Catheter Removed: 10/25/24 Time Urinary Catheter Discontinued: 13:03 Data NPU 11/10/24 05:32 11/15/24 05:57 A&P Assessment and plan (1) Anxiety: (2) Adjustment disorder with mixed disturbance of emotions and conduct: Plan This is a 34-year-old white female with no significant history of mental health challenges who presented with nutritional deficiencies giving a Warnicke's presentation who has been awaiting transfer without luck and acknowledging significant psychosocial issues that complicated her medical presentation. The patient was experiencing symptoms consistent with Wernicke's encephalopathy, likely due to vitamin B deficiency exacerbated by dehydration and malnutrition. There is also a mention of psychosis, which may be related to the nutritional deficiencies and dehydration. The patient has been dealing with significant stressors, including family issues and health challenges, which may have contributed to the current condition. Plan Seek out a specialist in alpha-gal to better manage dietary restrictions and health concerns. Consider finding someone to talk to about the challenges of being a singleish mom and other personal issues. Explore joining an alpha-gal support group for shared experiences and advice. Establish a mental health support system to ensure emotional well-being. Maintain communication with senior medical billing specialist for follow-up care and guidance post-discharge. 1. Continue current medication. Advised to consider antidepressant antianxiety agent if desired. 2. Agree with discharge once medically cleared. 3. Recommend establishing a mental health therapist. Also recommend participating in focus groups. 4. Advised to consider the crisis stabilization center if there is a worsening of her mental health or if she finds her self in a crisis and needing support or therapy before establishing a therapist. 5. Please reconsult if necessary. Attestations NPU Medical Necessity Statement*: N/A. Please see primary team note for medical necessity. Coding Level of Care Code Acute Code for Chg Fwd Diagnoses Anxiety F41.9 Adjustment disorder with mixed disturbance of emotions and conduct F43.25
--- NOTE | 2024-11-15 15:04 | PM.DCS ---
Discharge Providers Date of Admission: 10/25/24 15:07 Date of Discharge: November 15, 2024 Attending Provider at Admission: Joshua Craig MD Attending Provider at Discharge: Anna Niño MD Diagnoses at Discharge Discharge Diagnosis (1) Anxiety: Status: Acute (2) Adjustment disorder with mixed disturbance of emotions and conduct: Status: Acute (3) Wernicke's encephalopathy with cerebellar manifestation: Status: Acute (4) Chronic migraine without aura, intractable, with status migrainosus: Status: Acute (5) Cyclical vomiting: Status: Acute (6) Esophagitis: Status: Acute (7) Mastocytosis: Status: Acute (8) Thrush, oral: Status: Acute (9) Stomatitis: Status: Acute (10) Abnormal liver enzymes: Status: Acute (11) Dehydration: Status: Acute Reason for Visit Reason for Visit: hydrated, cant stand,hold head, weakness Hospital Course Hospital Course Marisela Matute is a 34 year old female who presented to our emergency department 10/24/2024, with complaint of continuous vomiting and abdominal pain for a month. She had recently undergone an upper endoscopy in September at [facility] and was given a diagnosis of mastocytosis based on results of stomach biopsy. On admission her potassium was low at 3.3 and she was acidotic,and lethargic. She was profoundly dehydrated and tachycardic with heart rate in the 140s. She got IV fluids in the ER and was started also on PPN during course of this admission due to very poor po intake and inability to meet nutritional goals with oral feeding. She was noted to have a massively distended urinary bladder, required Sandra catheterization for urinary retention > 2L on admission. The latter subsequently improved and she is voiding at will. She had gallbladder sludge. CT of the head was unremarkable. Her vitamin B12 was normal at 647. Her past history is notable for having been diagnosed with alpha gal in July and then she developed recurrent nausea and vomiting by September to the point that she could not keep anything down. She had severe thrush for which she received fluconazole and HSV II stomatitis , both have since resolved. She was also c/o diplopia and exam showed B/L 6th nerve weakness. MRI was obtained because of the diplopia and left-sided abducens weakness. Her MRI showed restricted diffusion in the internal capsule, medial thalami and increased signal in the mamillary bodies and periaqueductal leal matter typical for Wernicke's encephalopathy. She also has moderate cerebellar atrophy. She was started on high-dose intravenous thiamine, completed her iv course and is now on oral thiamine 100mcg daily. Last B1 level from 10/27 at 730. Hospital course has been marked by generalized weakness, and persistent dizziness which has waxed and waned during the course of her admission here. Her DAYDAY panel returned positive with a titer of 1: 40, negative ANCA, Lorraine 1, SSA SSB, negative SM, negative anti-dsDNA, negative centromere B and thyroid peroxidase antibodies. Complement levels C3 C and C4 C within normal limits. Normal random cortisol levels. TSH level was normal. She was evaluated by neurology. PEG tube feeding was recommended due to poor p.o. intake, however patient did improve to the point that she was able to tolerate small oral feeding. At the time of discharge She does not wish to have a PEG as she is tolerating oral intake better. Multiple attempts were made to transfer patient to higher center for further evaluation of mastocytsois, wernicke's, elevated DAYDAY levels, suspicion for underlying autoimmune process given multiple allergies, poor po tolerance, severe thursh and stomatitis. She would likely benefit from multidisciplinary teams including allergy/immunology, rheumatology, neurology, GI. No unifying diagnosis appears apparent at this point in spite of evaluation. She was accepted at [facility], however has been waiting for transfer for over 2 weeks at this point. Currently patient has improved to the point where she is stable with ambulation. Physical therapy has evaluated her she is recommended a home exercise program. Since she is improved to the point to be able to safely discharge, outpatient follow up referrals have been sent to [facility] and [facility]. For details regarding hospital admission, please see progress note from 11/14 which has day to day details. This documentation was created by [employer] tractor crane engineer software. Every effort was made to ensure accuracy of tractor crane engineer. Any obvious errors or omissions should be clarified with the author of the document. Physical Exam Narrative: General: No acute distress, AO x3 HEENT: PERRLA, pupils bilaterally equal and reactive, pallors not present Chest: Normal vesicular breath sounds, no added sounds, equal good air entry bilaterally CVS: S1-S2 regular, no murmurs, no tachycardia, no gallops, no rubs Abdomen: Soft, nontender, no organomegaly, bowel sounds present Neuro: No focal deficits, no facial deformity, AO x3, power 5/5 in all limbs Urinary Catheter Management: Sandra: Cath Placed During This Visit: yes, but has since been removed by the nurse Reason for Continuing Indwelling Catheter: Decision to DC Catheter Urinary Catheter Date of Insertion: 10/24/24 Urinary Catheter Time of Insertion: 23:48 Date Urinary Catheter Removed: 10/25/24 Time Urinary Catheter Discontinued: 13:03 Discharge Data Studies Completed and Pending Completed Studies During Hospitalization Category Date Time Status CT abdomen pelvis w con* [id number] Stat Cat Scan 10/24/24 21:[address] abdomen pelvis wo con [id number] Urgent Cat Scan 11/08/24 13:[address] head wo con* [id number] Stat Cat Scan 10/24/24 23:31 Completed CXRP [XR chest 1V portable [id number]] Routine Exams 10/30/24 15:00 Completed XR chest 1V portable [id number] Stat Exams 10/24/24 18:54 Completed XR chest 1V portable [id number] Stat Exams 11/09/24 12:27 Completed MR head wo/w con [id number] Routine MRI 10/26/24 13:11 Completed CV. echo complete* [id number] Routine Ultrasound 10/26/24 16:32 Completed US gall bladder [id number] Stat Ultrasound 10/24/24 21:10 Completed Pending at discharge Category Date Time Status Antiphospholipid Antibody Massey Routine Lab 10/25/24 12:07 Results Radiology Impressions Gallbladder Ultrasound 10/24/24 21:10 IMPRESSION: 1. Gallbladder sludge. Mild nonspecific gallbladder wall thickening as described. No other definite imaging signs of acute cholecystitis. No biliary dilatation. 2. No acute right upper quadrant findings otherwise. 3. Echogenic area in the liver, likely benign fatty deposit near the falciform ligament as described above. Head CT 10/24/24 23:31 IMPRESSION: No acute intracranial findings. Head MRI 10/26/24 13:11 IMPRESSION: Images significantly degraded and limited by patient motion 1. Above-described findings suspicious for Wernicke's encephalopathy in the appropriate clinical setting. Recommend correlation with clinical history. 2. Moderate cerebellar atrophy advanced for patient this age nonspecific but can be seen with alcoholic encephalopathy and chronic phenytoin use or seizures Message LEFT for Cinthia MD Devika at 10/26/2024 3:[address] Kathia MUNGUIA at 10/26/2024 4:07 PM. Abdomen/Pelvis CT 11/08/24 13:09 IMPRESSION: 1. Fluid distended stomach with air-fluid level. 2. No evidence of high-grade small or large bowel obstruction. Low-lying transverse colon with mild fecal retention in the transverse colon and RIGHT colon. 3. No free fluid in the abdomen or pelvis. 4. No hydronephrosis in either kidney. 5. Trace pleural fluid with slight bibasal atelectasis. Trace pericardial fluid. 6. Mild bladder wall thickening can be seen with UTI or cystitis. Chest X-Ray 11/09/24 12:27 IMPRESSION: Nasogastric tube now in place with tip near the GE junction at the cardia of the stomach. Laboratory Results WBC 3.65 10^3/uL (3.29-11.43) 11/10/24 05:32 Corrected WBC Cancelled 10/28/24 05:35 RBC 3.67 10^6/uL (3.85-5.65) L 11/10/24 05:32 Hgb 11.90 g/dL (11.27-16.99) 11/10/24 05:32 Hct 35.3 % (36-47) L 11/10/24 05:32 MCV 96.2 fl (85-98) 11/10/24 05:32 MCH 32.4 pg (27-33) 11/10/24 05:32 MCHC 33.7 g/dL (30-55) 11/10/24 05:32 RDW 15.8 % (12.1-15.1) H 11/10/24 05:32 Plt Count 244 10^3/cmm (157-399) 11/10/24 05:32 MPV 11.4 fL (7.4-10.4) H 11/10/24 05:32 Gran % Cancelled 10/28/24 05:35 Neut % (Auto) 58.6 % 11/10/24 05:32 Lymph % (Auto) 17.5 % 11/10/24 05:32 Garvin % (Auto) 19.5 % 11/10/24 05:32 Eos % (Auto) 3.0 % 11/10/24 05:32 Baso % (Auto) 1.1 % 11/10/24 05:32 Neut # (Auto) 2.14 10^3/uL (1.8-7.7) 11/10/24 05:32 Lymph # (Auto) 0.6 10^3/uL (0.8-4.8) L 11/10/24 05:32 Garvin # (Auto) 0.7 10^3/uL (0.2-0.9) 11/10/24 05:32 Eos # (Auto) 0.1 10^3/uL (0.0-0.8) 11/10/24 05:32 Baso # (Auto) 0.0 10^3/uL (0.0-0.1) 11/10/24 05:32 Absolute Gran (auto) Cancelled 10/28/24 05:35 Nucleated RBC % (auto) 0 % 11/10/24 05:32 Nucleated RBCs # 0.0 /100WBC 11/10/24 05:32 Sodium 142 mmol/L (136-145) 11/15/24 05:57 Potassium 3.5 mmol/L (3.5-5.1) 11/15/24 05:57 Chloride 109 mmol/L (98-107) H 11/15/24 05:57 Carbon Dioxide 19 mmol/L (22-29) L 11/15/24 05:57 Anion Gap 17.5 (5-19) 11/15/24 05:57 BUN 3 mg/dL (6-20) L 11/15/24 05:57 Creatinine 0.4 mg/dL (0.5-0.9) L 11/15/24 05:57 GFR Calculation 182.7 mL/min (90-130) H 11/15/24 05:57 Glucose 79 mg/dL (65-115) 11/15/24 05:57 POC Glucose 100 mg/dL (70-110) 10/29/24 14:15 Calculated Osmolality 289 mOsm/kg (285-295) 11/15/24 05:57 Lactic Acid 0.9 mmol/L (0.5-2.2) 10/30/24 18:30 Calcium 8.8 mg/dL (8.5-10.5) 11/15/24 05:57 Phosphorus 3.9 mg/dL (2.5-4.5) 11/12/24 04:40 Magnesium 1.6 mg/dL (1.7-2.3) L 11/15/24 05:57 Total Bilirubin 0.7 mg/dL (0.15-1.2) 11/13/24 02:29 AST 24 U/L (0-32) 11/13/24 02:29 ALT 36 U/L (0-33) H 11/13/24 02:29 Alkaline Phosphatase 60 U/L (35-105) 11/13/24 02:29 Creatine Kinase 113 U/L (26-192) 10/25/24 12:07 C-Reactive Protein 129.8 mg/L (0.0-4.9) H 10/25/24 12:07 Total Protein 5.3 g/dL (6.6-8.7) L 11/13/24 02:29 Albumin 3.2 g/dL (3.5-5.2) L 11/13/24 02:29 Globulin 2.1 g/dL (1.3-4.6) 11/13/24 02:29 Thiamine 730 nmol/L (78-185) H 10/27/24 08:27 Vitamin B12 597 pg/mL (232-1245) 10/27/24 13:33 25-OH Vitamin D Total 16 ng/mL (30-100) L 10/27/24 13:33 HCG, Qual Negative (Negative) 10/24/24 20: Random Cortisol 11.33 ug/dL (2.47-19.5) 10/25/24 12:07 Urine Color Dubois (Yellow) A 10/24/24 20: Urine Appearance Clear (CLEAR) 10/24/24 20: Urine pH 6.5 (5-7) 10/24/24 20:27 Ur Specific Jackman 1.039 (1.005-1.030) H 10/24/24 20:27 Urine Protein Trace (Negative) A 10/24/24 20: Urine Glucose (UA) Negative (Normal) 10/24/24 20: Urine Ketones 2+ (Negative) H 10/24/24 20: Urine Blood Negative (Negative) 10/24/24 20: Urine Nitrate Negative (Negative) 10/24/24 20: Urine Bilirubin 2+ (Negative) H 10/24/24 20: Urine Urobilinogen 2.0 mg/dL (Negative) H 10/24/24 20:27 Ur Leukocyte Esterase Trace (Negative) A 10/24/24 20:27 Urine RBC 0-2 /hpf (0-2) 10/24/24 20:27 Urine WBC 0-5 /hpf (0-5) 10/24/24 20:27 Ur Squamous Epith Cells 0-5 /hpf (0-5) 10/24/24 20:27 Amorphous Sediment Not Reportable 10/24/24 20:27 Urine Bacteria None seen /hpf (NONE) 10/24/24 20:27 Hyaline Casts 4.95 /lpf 10/24/24 20:27 Urine Mucus 4+ /hpf 10/24/24 20:27 Urine Opiates Screen Negative ng/mL (Negative) 10/24/24 20: Ur Barbiturates Screen Negative ng/mL (Negative) 10/24/24 20:27 Ur Phencyclidine Scrn Negative ng/mL (Negative) 10/24/24 20:27 Ur Amphetamines Screen Negative ng/mL (Negative) 10/24/24 20:27 U Benzodiazepines Scrn Negative ng/mL (Negative) 10/24/24 20:27 Urine Cocaine Screen Negative ng/mL (Negative) 10/24/24 20:27 U Marijuana (THC) Screen Negative ng/mL (Negative) 10/24/24 20:27 DAYDAY Screen Cancelled 10/25/24 12:07 DAYDAY Titer Cancelled 10/25/24 12:07 DAYDAY Titer 2 Cancelled 10/25/24 12:07 DAYDAY Titer 3 Cancelled 10/25/24 12:07 DAYDAY Nuclear Membr Pat Nuclear, speckled A 10/25/24 12:07 DAYDAY Pattern Cancelled 10/25/24 12:07 DAYDAY Pattern 2 Cancelled 10/25/24 12:07 DAYDAY Pattern 3 Cancelled 10/25/24 12:07 DAYDAY IFA Animal Tis Ttr 1:40 titer H 10/25/24 12:07 DAYDAY IFA Animal Tis Res Positive (NEGATIVE) A 10/25/24 12:07 ANCA Screen Negative (NEGATIVE) 10/25/24 12:07 ANCA Titer Not Reportable 10/25/24 12:07 LORRAINE-1 Antibody <1.0 neg AI (<1.0 NEG) 10/25/24 12:07 SS-A Antibody <1.0 neg AI (<1.0 NEG) 10/25/24 12:07 SS-B Antibody <1.0 neg AI (<1.0 NEG) 10/25/24 12:07 Sm (Yeager) Antibody <1.0 neg AI (<1.0 NEG) 10/25/24 12:07 BIAS BINDING FOLDER Antibody <1.0 neg AI (<1.0 NEG) 10/25/24 12:07 Scl-70 Antibody <1.0 neg AI (<1.0 NEG) 10/25/24 12:07 Anti-ds DNA IgG Ab <1 IU/mL 10/25/24 12:07 Anti-ds DNA IgG Ab Cancelled 10/25/24 12:07 Anti-ds DNA IgG (Crith) Negative (NEGATIVE) 10/25/24 12:07 Centromere B Antibody <1.0 neg AI (<1.0 NEG) 10/25/24 12:07 Mitochon/Sm Musc Ab Titr Cancelled 10/25/24 12:07 Beta-2-GPI IgG Ab <2.0 U/mL 10/25/24 12:07 Beta-2-GPI IgA Ab <2.0 U/mL 10/25/24 12:07 Beta-2-GPI IgM Ab <2.0 U/mL 10/25/24 12:07 Thyroid Peroxidase Ab <1 IU/mL (<9) 10/25/24 12:07 Phosphatidylserine IgG <9 U (< OR = 30) 10/25/24 12:07 Phosphatidylserine IgM <9 U (< OR = 30) 10/25/24 12:07 Phospholipid Ab Comment See note 10/25/24 12:07 Anti-Cardiolipin IgG Ab <2.0 GPL-U/mL 10/25/24 12:07 Anti-Cardiolipin IgA Ab <2.0 APL-U/mL 10/25/24 12:07 Anti-Cardiolipin IgM Ab <2.0 MPL-U/mL 10/25/24 12:07 Complement C3c 135 mg/dL (83-193) 10/25/24 12:07 Complement C4c 31 mg/dL (15-57) 10/25/24 12:07 CH50 Classical Pathway 50 U/mL (31-60) 10/25/24 12:07 Coronavirus (PCR) Negative (Negative) 10/24/24 21:24 Hepatitis A IgM Ab Non-reactive (Nonreactive) 10/26/24 18:43 Hep Bs Antigen Non-reactive (Nonreactive) 10/26/24 18:43 Hep Bs Antibody 47.0 (11.5-1000) 10/26/24 18:43 Hep B Core Total Ab Non-reactive (Nonreactive) 10/26/24 18:43 Hep B Core IgM Ab Non-reactive (Nonreactive) 10/24/24 19:53 Hepatitis C Antibody Non-reactive (Nonreactive) 10/26/24 18:43 Herpes Simplex Source Lips 10/25/24 13:40 HIV 1&2 Ab & HIV 1 Ag Non-reactive (Non-Reactiv) 10/25/24 12:07 HIV 1&2 Antibody Non-reactive (Non-Reactiv) 10/25/24 12:07 Influenza A (PCR) Negative (Negative) 10/24/24 21:24 Influenza Type B (PCR) Negative (Negative) 10/24/24 21:24 RSV (PCR) Negative (Negative) 10/24/24 21:24 Mitochondrial DNA Scrn Cancelled 10/25/24 12:07 Mitochondrial DNA Scrn Negative (NEGATIVE) 10/25/24 12:07 HSV 1 DNA Not detected (Not Detected) 10/25/24 13:40 HSV 2 DNA Detected (Not Detected) A 10/25/24 13:40 Vitals Last Vital Signs Temp 97.7 F 11/15/24 11:57 Pulse 93 11/15/24 11:57 Resp 17 11/15/24 11:57 BP 120/86 11/15/24 11:57 Pulse Ox 98 11/15/24 11:57 O2 Del Method Room Air 11/15/24 11:57 Discharge Plan Discharge Patient Disposition: Home Condition: Stable Prescriptions: New sennosides-docusate sodium [Stool Softener-Laxative] 8.6-50 mg Tablet 1 tab PO BID PRN (Reason: constipation) Qty: 30 0RF folic acid 1 mg Tablet 1 mg PO DAILY Qty: 30 0RF thiamine mononitrate (vit B1) [Vitamin B-1 (mononitrate)] 100 mg Tablet 100 mg PO DAILY Qty: 30 0RF pantoprazole [Protonix] [address] for susp in packet 40 mg PO QAM Qty: 30 0RF B Complex Plus Vitamin C [id number] mg capsule 1 cap PO DAILY 30 Days Qty: 30 0RF Rx Instructions: give with food (meal/snack) Discharge Orders: Discharge Order (Routine); Ordered 11/15/24 Ordered By: Anna Nuno Ambulatory Orders: DME: Walker (Order) Location: None Selected Ordered By: Cinthia Fortune DME: Wheelchair (Order) Location: None Selected Ordered By: Cinthia Fortune Physical Therapy Eval and Treat Outpatient (Order) Timeframe: 3 Days Facility: [facility] - Location: Physical Therapy [facility] Ordered By: Cinthia Fortune Referrals: [facility] Neurology [Other] - 4-7 days (Wernicke's encephalopathy) Allergy and Immunology, [facility] [Other] - 7-10 days (alpha gal syndrome, poor po intake to the point of B1 deficiency and Wernicke's ) rheumatology, [facility] [Other] - 7-10 days (mastocytosis, + DAYDAY level ) [facility] [place]Outside] Emeli Corley [Referring] - 4-7 days (We have faxed your information to Dr. Sainz in [facility] to get an appointment. If you do not hear from them in 2 business days give them a call at [phone].) Jarad Song [Referring] - 4-7 days (We have faxed your information to [facility] Neurology to get an appointment. If you do not hear from them in 2 business days give them a call at [phone].) Yoana Trevizo MD [Referring] - 4-7 days (We have faxed your information to Dr. Trevizo in [facility] to get an appointment. If you do not hear from them in 2 business days give them a call at [phone].) Lee Sen MD [Referring] - 4-7 days (We have faxed your information to [facility] Gastroenterology to get an appointment. If you do not hear from them in 2 business days give them a call at [phone].) Discharge Diet: Regular Discharge Activity: Increase activity as tolerated, Use walker/crutches as instructed, Wheelchair as instructed and As per PT/OT instructions Patient Instructions: Generalized Anxiety Disorder, Thiamine (By mouth), Folic Acid (By mouth), Pantoprazole (By mouth), Vitamin B Complex (By mouth), Senna (By mouth), Encephalopathy (DC), Opioid Safety Activity Restrictions/Additional Instructions: Please follow up with PCP within 4-7 days of discharge. You have been referred to various specialists in [place]. Please call them within next 2-3 days if you don't receive a call back with appointment times. Continue to encourage oral intake. Supplement diet with protein shakes and gatorade. Continue to eat apples, chicken, fish and all foods you are able to tolerate easily and add more foods gradually. Aim for atleast 1500 calories/day. Discharge Attestations Time Spent in Discharge Care*: greater than 30 min Quality Metrics Clinical Quality Measures [ No reported AMI, CVA or VTE this stay] Coding Level of Care Code Acute Code for Chg Fwd Diagnoses Anxiety F41.9 Adjustment disorder with mixed disturbance of emotions and conduct F43.25 Wernicke's encephalopathy with cerebellar manifestation E51.2 Chronic migraine without aura, intractable, with status migrainosus G43.711 Cyclical vomiting R11.15 Esophagitis K20.90 Mastocytosis D47.09 Thrush, oral B37.0 Stomatitis K12.1 Abnormal liver enzymes R74.8 Dehydration E86.0
[2024-11-15 15:43] VITALS: BP 116/82; PULSE 74; RESP 18; TEMP 36.4; O2SAT 100
[2024-11-15 16:09] LABS: T3 Free 2.6 PG/ML (2.0-4.4)
[2024-11-15 16:30] LABS: Thyroid Stimulating Hormone 2.49 uIU/mL (0.27-4.20)
[2024-11-15 19:08] VITALS: BP 116/82; PULSE 74; RESP 18; TEMP 36.4; O2SAT 100
[2024-11-16 05:19] LABS: T4 Total 9.2 mcg/dL (5.1-11.9)
== END 2024-11-15 17:20 | disposition home or self-care (01) | DRG 641 ==
LOC: ER 21:41 → MEDSURG 23:40
PROVIDERS: Emergency Medicine; Internal Medicine; Admitting Provider Internal Medicine; Emergency Provider Emergency Medicine; Visit Provider Student in an Organized Health Care Education/Training Program
DX: E51.2 Wernicke's encephalopathy (principal); D47.09 Other mast cell neoplasms of uncertain behavior; B37.0 Candidal stomatitis; E87.20 Acidosis, unspecified; F41.9 Anxiety disorder, unspecified; F43.25 Adjustment disorder with mixed disturbance of emotions and conduct; G43.711 Chronic migraine without aura, intractable, with status migrainosus; R11.15 Cyclical vomiting syndrome unrelated to migraine; K20.90 Esophagitis, unspecified without bleeding; K13.0 Diseases of lips; R79.89 Other specified abnormal findings of blood chemistry; E86.0 Dehydration; E87.6 Hypokalemia; R00.0 Tachycardia, unspecified; R27.0 Ataxia, unspecified; K81.1 Chronic cholecystitis; R74.8 Abnormal levels of other serum enzymes; H53.2 Diplopia; R33.9 Retention of urine, unspecified; Z91.014 Allergy to mammalian meats
CPT/HCPCS: 36415; 36416; 36573; 36592; 51702; 70450; 70553; 71045; 74176; 74177; 76705; 80048; 80053; 80074; 80306; 81001; 81025; 82306; 82533; 82550; 82607; 82962; 83516; 83605; 83735; 84100; 84425; 84436; 84443; 84481; 85025; 86036; 86140; 86146; 86147; 86160; 86162; 86225; 86235; 86255; 86376; 86705; 86706; 86709; 86803; 87040; 87340; 87530; 87637; 87806; 93005; 93306; 96365; 96372; 97110; 97112; 97116; 97161; 97167; 97530; 97535; 99231; 99232; 99253; 99285; A9577; C1751; G0378; J1450; J1650; J2248; J2470; J2543; J3411; J3475; J3480; J7030; J7120

== ENCOUNTER 2024-11-10 06:30 | Outpatient (RCR) | payer OTHER, SELFPAY | END 2024-12-10 23:59 | disposition home or self-care (01) | LOC: MPT 06:30 | PROVIDERS: Visit Provider Internal Medicine | DX: R53.1 Weakness (principal) | CPT/HCPCS: 97110; 97162 ==

== ENCOUNTER 2024-12-11 06:30 | Outpatient (RCR) | payer OTHER, SELFPAY | END 2025-01-07 23:59 | disposition home or self-care (01) | LOC: MPT 06:30 | PROVIDERS: Visit Provider Internal Medicine | DX: M62.81 Muscle weakness (generalized) (principal); R26.81 Unsteadiness on feet | CPT/HCPCS: 97110 ==